=== PATIENT | female | born 1955 | race Caucasian/White ===

== ENCOUNTER 2017-07-08 15:19 | Emergency (ER) | payer BC ==
[2017-07-08 15:29] VITALS: BP 167/69; BMI 28.3
--- NOTE | 2017-07-08 15:47 | DR.GENAD ---
HPI - PCP Primary Care Physician: deepak - Complaint/Symptoms Chief Complaint:: Patient's family stated "She was started on a z-pack for a sinus infection and today she started talking out of her head and her symptoms are not any better." Patient is confused and weak in triage. Unable to remember what kind of job she does. Daughter states she has been with the [employer] system for 32 years. - Source History Provided: Patient - Mode of Arrival Mode of Arrival: Ambulatory - Timing Onset of Chief Complaint: 07/08/17 PMH - PMH Past Medical History: Yes Past Medical History: Diabetes, Hypertension Past Medical History Comment: neuropathy, breast ca Past Surgical History: Yes Surgical History: Cholecystectomy, Mastectomy Past Surgical History Comment: right cw port - Family History History of Family Medical Conditions: Yes Family Medical History: Cancer, Hypertension - Social History Does patient currently use any type of tobacco product: No Have you used tobacco products in the last 12 months: No Type of Tobacco Use: None Does any household member use tobacco: No Do you use any recreational Drugs:: Yes Lives With: Family Lives Where: Home - infectious screening In the last 2 months have you had wt loss of >10#?: NO Have you had fever, night sweats or hemotysis?: No Have you traveled outside the country in the last 6 months?: No Isolation: Standard ROS - Review of Systems Eyes: No Symptoms Reported ENTM: No Symptoms Reported Respiratoy: No Symptoms Reported Cardiovascular: No Symptoms Reported Gastrointestinal/Abdominal: No Symptoms Reported Genitourinary: No Symptoms Reported Neurological: No Symptoms Reported Musculoskeletal: No Symptoms Reported Integumentary: No Symptoms Reported Hematologic/Lymphatic: No Symptoms Reported Endocrine: No Symptoms Reported Psychiatric: No Symptoms Reported All Other Systems: Reviewed and Negative PE - Vital Signs Vitals: Temperature 99.4 F Pulse Rate 110 Respiratory Rate 24 Blood Pressure 167/69 O2 Sat by Pulse Oximetry 94 - General Limitations: No Limitations General Appearance: Alert, In No Apparent Distress - Head Head Exam: Normal Inspection, Atraumatic - Eyes Eye exam: Normal Appearance, PERRL, EOMI - ENT ENT Exam: Normal Exam External Ear Exam: Normal External Inspection TM/Canal Exam: Bilateral Normal Nose Exam: Normal Nose Exam Mouth Exam: Normal Inspection Throat Exam: Normal Inspection - Neck Neck Exam: Normal Inspection, Full ROM - Chest Chest Inspection: Normal Inspection - Respiratory Respiratory Exam: Normal Lung Sounds Bilat Respiratory Exam: Bilateral Clear to Auscultation - Cardiovascular Cardiovascular Exam: Regular Rate, Normal Rhythm - Abdominal Exam Abdominal Exam: Normal Inspection, Normal Bowel Sounds Abdominal Tenderness: negative: RUQ, RLQ, LUQ, LLQ, Epigastrium, Suprapubic, Diffuse, Mild, Moderate, Severe, Other - Extremities Extremities Exam: Normal Inspection - Back Back Exam: Normal Inspection, Full ROM - Neurologic Neurological Exam: Alert, Oriented X3, CN II-XII Intact - Psychiatric Psychiatric Exam: Normal Affect - Skin Skin Exam: Warm, Dry, Intact ROR - Labs Reviewed Laboratory Results Reviewed?: Yes (influenza B) Result Diagrams: 07/08/17 15:59 07/08/17 15:59 Laboratory: WBC 4.9 X10^3/uL (3.6-10.0) 07/08/17 15:59 RBC 3.63 X10^6/uL (3.5-5.4) 07/08/17 15:59 Hgb 11.0 g/dL (12.0-16.0) L 07/08/17 15:59 Hct 31.5 % (36.0-47.0) L 07/08/17 15:59 MCV 86.9 fL (80.0-100.0) 07/08/17 15:59 MCH 30.4 pg (27.0-34.0) 07/08/17 15:59 MCHC 35.0 g/dL (33.0-35.0) 07/08/17 15:59 RDW 13.3 % (11.6-16.5) 07/08/17 15:59 Plt Count 188 X10^3/uL (150.0-450.0) 07/08/17 15:59 MPV 8.8 fL (7.4-11.0) 07/08/17 15:59 Neut % 66.6 % (42.0-75.0) 07/08/17 15:59 Lymph % 18.2 % (21.0-51.0) L 07/08/17 15:59 Thomas % 14.4 % (0.0-13.0) H 07/08/17 15:59 Eos % 0.2 % (0.9-2.9) L 07/08/17 15:59 Baso % 0.6 % (0.2-1.0) 07/08/17 15:59 Neut # 3.3 x10^3/uL (2.2-4.8) 07/08/17 15:59 Lymph # 0.9 X10^3/uL (1.3-2.9) L 07/08/17 15:59 Thomas # 0.7 x10^3/uL (0.3-0.8) 07/08/17 15:59 Eos # 0.0 x10^3/uL (0.0-0.2) 07/08/17 15:59 Baso # 0.0 X10^3/uL (0.0-0.1) 07/08/17 15:59 Absolute Nucleated RBC 0.1 /100WBC 07/08/17 15:59 Sodium 134 mmol/L (136-145) L 07/08/17 15:59 Corrected Sodium 141 mmol/L (136-145) 07/08/17 15:59 Potassium 3.6 mmol/L (3.5-5.1) 07/08/17 15:59 Chloride 95 mmol/L (98-107) L 07/08/17 15:59 Carbon Dioxide 29.3 mmol/L (21-32) 07/08/17 15:59 BUN 22 mg/dL (7-18) H 07/08/17 15:59 Creatinine 1.14 mg/dL (0.55-1.02) H 07/08/17 15:59 Est GFR (MDRD) Af Amer > 60 (>60) 07/08/17 15:59 Est GFR (MDRD) Non-Af 51 (>60) L 07/08/17 15:59 Glucose 372 mg/dL (65-99) H 07/08/17 15:59 Calcium 8.8 mg/dL (8.5-10.1) 07/08/17 15:59 Corrected Calcium TNP 07/08/17 15:59 Total Bilirubin 0.20 mg/dL (0.2-1.0) 07/08/17 15:59 AST 23 Units/L (15-37) 07/08/17 15:59 ALT 25 Units/L (12-78) 07/08/17 15:59 Alkaline Phosphatase 151 Units/L (46-116) H 07/08/17 15:59 Total Protein 7.9 g/dL (6.4-8.2) 07/08/17 15:59 Albumin 3.7 g/dL (3.4-5.0) 07/08/17 15:59 Globulin 4.2 g/dL (2.5-4.5) 07/08/17 15:59 Albumin/Globulin Ratio 0.9 Ratio (1.1-2.1) L 07/08/17 15:59 Influenza Type A (PCR) Negative (NEGATIVE) 07/08/17 15:52 Influenza Type B (PCR) Positive (NEGATIVE) A 07/08/17 15:52 S. pyogenes (TEM-PCR) Not detected (NOT DETECT) 07/08/17 15:50 - Diagnosis Discharge Problem: Influenza B - Discharge Plan Condition: Stable - Follow ups/Referrals Follow ups/Referrals: THERESE MARCUS [Primary Care Provider] - 3 days - Instructions
[2017-07-08] MEDS ORDERED: TORADOL 30 MG VIAL IVP ONE (15:48)
[2017-07-08] MEDS ORDERED: NS 1000 ML 1,000 ML IV ONE (15:48)
[2017-07-08] MEDS ORDERED: NS 1000 ML 1,000 ML ONE (15:50)
[2017-07-08] MEDS ORDERED: TORADOL 30 MG VIAL ONE (15:51)
--- NOTE | 2017-07-08 16:05 | RAD ---
Examination: Portable AP chest History: Fever, chest pain and confusion Comparison 05/26/2016 Findings: Continued normal heart size. The lungs are essentially clear. Right breast implant partly o bscures the right lung. There is no definite pneumothorax or large pleural effusion. Impression: No acute findings. Reported By:
[2017-07-08 16:07] LABS: BASOPHILS % (AUTO) 0.6 % (0.2-1.0); EOSINOPHILS % (AUTO) 0.2 % (0.9-2.9); HEMATOCRIT 31.5 % (36.0-47.0); LYMPHOCYTES # (AUTO) 0.9 X10^3/uL (1.3-2.9); LYMPHOCYTES % (AUTO) 18.2 % (21.0-51.0); MEAN CORPUSCULAR HEMOGLOBIN 30.4 pg (27.0-34.0); MEAN CORPUSCULAR VOLUME 86.9 fL (80.0-100.0); MEAN PLATELET VOLUME 8.8 fL (7.4-11.0); MONOCYTES # (AUTO) 0.7 x10^3/uL (0.3-0.8); MONOCYTES % (AUTO) 14.4 % (0.0-13.0); NEUTROPHILS # (AUTO) 3.3 x10^3/uL (2.2-4.8); NEUTROPHILS % (AUTO) 66.6 % (42.0-75.0); PLATELET COUNT 188 X10^3/uL (150.0-450.0); RED BLOOD COUNT 3.63 X10^6/uL (3.5-5.4); RED CELL DISTRIBUTION WIDTH 13.3 % (11.6-16.5); WHITE BLOOD COUNT 4.9 X10^3/uL (3.6-10.0)
[2017-07-08 16:19] LABS: ALANINE AMINOTRANSFERASE 25 Units/L (12-78); ALBUMIN 3.7 g/dL (3.4-5.0); ALKALINE PHOSPHATASE 151 Units/L (46-116); ASPARTATE AMINO TRANSFERASE 23 Units/L (15-37); BLOOD UREA NITROGEN 22 mg/dL (7-18); CALCIUM 8.8 mg/dL (8.5-10.1); CARBON DIOXIDE 29.3 mmol/L (21-32); CHLORIDE 95 mmol/L (98-107); COR NA(FOR HYPERGLY) 141 mmol/L (136-145); CREATININE 1.14 mg/dL (0.55-1.02); SODIUM 134 mmol/L (136-145); TOTAL PROTEIN 7.9 g/dL (6.4-8.2); eGFR BLACK RACES > 60 (>60); eGFR NON BLACK RACES 51 (>60)
[2017-07-08] MEDS ORDERED: MORPHINE SULFATE INJ 4 MG IVP ONE (16:54)
[2017-07-08 17:14] LABS: BILIRUBIN,URINE NEGATIVE (NEGATIVE); BLOOD/HEMOGLOBIN,URINE 1+ (NEGATIVE); GLUCOSE, URINE 4+ (NEGATIVE); KETONES,URINE NEGATIVE (NEGATIVE); LEUKOCYTE ESTERASE ,URINE NEGATIVE (NEGATIVE); NITRITES,URINE NEGATIVE (NEGATIVE); PH,URINE 6.5 (5.0 - 8.0); PROTEIN,URINE 2+ (NEGATIVE); UROBILINOGEN,URINE NORMAL (NORMAL)
[2017-07-08 17:23] LABS: APPEARANCE,URINE CLEAR (CLEAR); BACTERIA,URINE NEGATIVE /HPF (NEGATIVE); COLOR,URINE YELLOW (YELLOW); RBC,URINE 0-3 /HPF (NONE SEEN); SQUAMOUS EPITHELIAL CELL,UR FEW /HPF (NEGATIVE)
== END 2017-07-08 17:17 | disposition home or self-care (01) ==
LOC: ER 15:32
DX: J10.1 Influenza due to other identified influenza virus with other respiratory manifestations (principal)
CPT/HCPCS: 36415; 71045; 80053; 81001; 85025; 87502; 87651; 96365; 96374; 99282; 99283; A4222; J1885

== ENCOUNTER 2017-09-02 11:56 | Inpatient (IN) | payer BC ==
--- NOTE | 2017-09-02 13:27 | DR.H&P ---
H&P - History & Physical for Day of: H&P Date: 09/02/17 - Chief Complaint Chief Complaint: WEAKNESS, FATIGUE, PEREYRA - Allergies Allergies/Adverse Reactions: Allergies Allergy/AdvReac Type Severity Reaction Status Date / Time penicillin G Allergy Verified 07/08/17 15:51 - History of Present Illness History of Present Illness: PT WAS 62 WF DIRECT ADMIT FROM DR MENDIOLA OFFICE WITH CO GENERALIZED WEAKNESS, SOB, CP ON LEFT SIDE, PT CO LOWER EXTREMITY EDEMA AND HAS BEEN ON PO LASIX. PT WAS BRADYCARDIC IN OFFICE. PT HAS PMH OF BREAST CA , HTN, DM, COPD, MDD, ALEX, OA. PT ADMITTED FOR EVALUATION OF SYMPTOMATIC BRADYCARDIA, HOLD ANY BB, CARDIAC ENZYMES AND EKGS. - Past Medical History Past Medical History: Arthritis, COPD, Diabetes, Hypertension Additional Medical History: BREAST CANCER - Past Surgical History Surgical History: Cholecystectomy, Mastectomy - Family History Family Medical History: Cancer, Hypertension - Social History Does patient currently use any type of tobacco product: No Have you used tobacco products in the last 12 months: No Type of Tobacco Use: None Does any household member use tobacco: No Alcohol Use: None Drug Use: None - Review of Systems Constitutional: Weakness, Malaise Eyes: No Symptoms Reported ENT: No Symptoms Reported Respiratory: Shortness of Breath, SOB with Excertion. denies: Wheezing Cardiovascular: Chest Pain, Edema Gastrointestinal: No Symptoms Reported Genitourinary: No Symptoms Reported Musculoskeletal: Back Pain, Leg Pain, Neck Pain Skin: No Symptoms Reported Neurological: Weakness - Physical Exam Vital Signs: Blood Pressure 167/69 Oriented: Normal Eyes: Normal Ear: Normal Nose: Normal Throat: Normal Respiratory: RLL Diminished, LLL Diminished Cardiovascular: Bradycardia, Edema : Normal Auscultation: Bowel Sounds: Normal Palpation: Normal Tenderness: Normal Skin: Decreased Turgur Musculoskeletal: Right, Left, Leg, Ankle, Back:Thoracic, Back:Lumbar, Swelling Psychiatric: Anxiety Mood Description: Depressed Affect: Depressed Speech Pattern: Clear - Assessment/Plan (1) Chest pain Status: Acute Plan: ADMIT, SERIAL CE, EKGS. HOLD BB, CXR ON ADMISSION, IV HYDRATION. ADMISSION LABS, SSI. BLOOD PRESSURE CONTROL AND BS CONTROL. RESUME HOME PAIN MEDS (2) PEREYRA (dyspnea on exertion) Status: Acute (3) Hypertension Status: Acute (4) Diabetes Status: Acute (5) Bradycardia Status: Acute
[2017-09-02] MEDS ORDERED: HumaLOG SC PRN (16:48)
[2017-09-02] MEDS ORDERED: ZOFRAN INJ 4 MG VIAL 16 MG, ATIVAN INJ 2 MG VIAL 1 MG, DECADRON INJ 10 MG in NS 50 ML I... IV PRN (16:49)
[2017-09-02] MEDS ORDERED: NS 1/2 1000 ML IV 1,000 ML IV ONE (17:10)
[2017-09-02] MEDS: ROCEPHIN 1 GM IV PREMIX 1 GM/50 ML IV.SOLN. IV SCH (17:30)
[2017-09-02] MEDS: NS 1/2 1000 ML IV 1,000 ML IV SCH (17:40)
[2017-09-02 17:52] LABS: BASOPHILS # (AUTO) 0.1 X10^3/uL (0.0-0.1); BASOPHILS % (AUTO) 0.6 % (0.2-1.0); EOSINOPHILS # (AUTO) 0.2 x10^3/uL (0.0-0.2); EOSINOPHILS % (AUTO) 1.1 % (0.9-2.9); HEMATOCRIT 25.6 % (36.0-47.0); HEMOGLOBIN 9.3 g/dL (12.0-16.0); LYMPHOCYTES % (AUTO) 20.1 % (21.0-51.0); MEAN CORPUSCULAR HEMOGLOBIN 30.1 pg (27.0-34.0); MEAN CORPUSCULAR HGB CONC 36.4 g/dL (33.0-35.0); MEAN CORPUSCULAR VOLUME 82.7 fL (80.0-100.0); MEAN PLATELET VOLUME 9.2 fL (7.4-11.0); MONOCYTES % (AUTO) 6.7 % (0.0-13.0); NEUTROPHILS # (AUTO) 10.7 x10^3/uL (2.2-4.8); NEUTROPHILS % (AUTO) 71.5 % (42.0-75.0); PLATELET COUNT 222 X10^3/uL (150.0-450.0); RED BLOOD COUNT 3.09 X10^6/uL (3.5-5.4); RED CELL DISTRIBUTION WIDTH 14.3 % (11.6-16.5)
[2017-09-02] MEDS ORDERED: PHENERGAN TAB 25 MG PO PRN (17:56)
[2017-09-02 18:15] LABS: ALANINE AMINOTRANSFERASE 26 Units/L (12-78); ALBUMIN 3.4 g/dL (3.4-5.0); ALKALINE PHOSPHATASE 149 Units/L (46-116); ASPARTATE AMINO TRANSFERASE 27 Units/L (15-37); BLOOD UREA NITROGEN 33 mg/dL (7-18); CALCIUM 8.7 mg/dL (8.5-10.1); CARBON DIOXIDE 34.2 mmol/L (21-32); CHLORIDE 95 mmol/L (98-107); CKMB % 0.8 % (<4); COR NA(FOR HYPERGLY) 143 mmol/L (136-145); CREATINE KINASE 437 Units/L (26-192); CREATINE KINASE MB 3.4 ng/mL (0-4.0); CREATININE 2.01 mg/dL (0.55-1.02); SODIUM 138 mmol/L (136-145); TOTAL PROTEIN 7.6 g/dL (6.4-8.2); TROPONIN I 0.03 ng/mL (0-1.5); eGFR BLACK RACES 32 (>60); eGFR NON BLACK RACES 27 (>60)
[2017-09-02] MEDS ORDERED: K-RIDER 10 MEQ/NS 100 ML 10 MEQ/100 ML BAG IV PRN (18:18)
[2017-09-02] MEDS ORDERED: MAGNESIUM SULFATE 1 GM/100 mL PREMIX 1 GM/100 ML BAG IV PRN (18:18)
[2017-09-02] MEDS ORDERED: POTASSIUM CHLORIDE LIQ 20 MEQ UDC PO PRN (18:18)
[2017-09-02] MEDS ORDERED: K-LYTE EFFERVESCENT PO PRN (18:18)
[2017-09-02] MEDS ORDERED: POTASSIUM CHL 40 MEQ/NS 0.45% 500 ML IV PRN (18:18)
[2017-09-02] MEDS: POTASSIUM CHL 60 MEQ/NS 0.45% 500 ML IV PRN (18:36)
[2017-09-02] MEDS: MORPHINE SULFATE INJ 2 MG INJ IVP PRN (18:36)
[2017-09-02] MEDS: HumuLIN R SUBCUT PRN ×2 (18:40→22:14)
[2017-09-02] MEDS: SNACK - Diabetic Appropriate PO SCH (20:00)
[2017-09-02] MEDS: CRESTOR TAB 10 MG PO SCH (21:22)
[2017-09-02] MEDS: NEURONTIN CAP 100 MG PO SCH (21:23)
[2017-09-02] MEDS: NEURONTIN CAP 400 MG PO SCH (21:23)
[2017-09-02] MEDS: CEVIMELINE HCL PO SCH (21:30)
--- NOTE | 2017-09-02 22:18 | RAD ---
Chest, two views Indication: Dizzy, weak Comparison: 07/08/2017 Findings: Heart size is normal. Right breast implant slightly limits evaluation of the right lung. Gi bia these limitations, the lungs are grossly clear without focal consolidation. No significant pleura l effusion or pneumothorax identified. There is no acute osseous abnormality. Impression: No acute cardiopulmonary abnormality or significant change since prior. Reported By:
[2017-09-03 00:30] LABS: CKMB % 0.7 % (<4); CREATINE KINASE MB 2.8 ng/mL (0-4.0); TROPONIN I 0.03 ng/mL (0-1.5)
[2017-09-03 00:36] VITALS: BMI 26.9
[2017-09-03] MEDS: POTASSIUM CHL 60 MEQ/NS 0.45% 500 ML IV PRN ×2 (00:46→10:58)
[2017-09-03] MEDS: AMBIEN PO PRN ×2 (01:40→21:24)
[2017-09-03 02:19] LABS: BILIRUBIN,URINE NEGATIVE (NEGATIVE); BLOOD/HEMOGLOBIN,URINE 4+ (NEGATIVE); GLUCOSE, URINE 4+ (NEGATIVE); KETONES,URINE NEGATIVE (NEGATIVE); LEUKOCYTE ESTERASE ,URINE NEGATIVE (NEGATIVE); NITRITES,URINE NEGATIVE (NEGATIVE); PROTEIN,URINE 3+ (NEGATIVE); UROBILINOGEN,URINE NORMAL (NORMAL)
[2017-09-03 02:40] LABS: APPEARANCE,URINE CLEAR (CLEAR); BACTERIA,URINE NEGATIVE /HPF (NEGATIVE); COLOR,URINE YELLOW (YELLOW); RBC,URINE 0-2 /HPF (NONE SEEN); SQUAMOUS EPITHELIAL CELL,UR FEW /HPF (NEGATIVE)
[2017-09-03] MEDS ORDERED: TYLENOL 325 MG TAB PO PRN (04:43)
[2017-09-03] MEDS: CEVIMELINE HCL PO SCH ×3 (06:10→21:25)
[2017-09-03] MEDS: NS 1/2 1000 ML IV 1,000 ML IV SCH ×2 (06:10→19:00)
[2017-09-03] MEDS: HumuLIN R SUBCUT PRN ×4 (06:20→21:28)
[2017-09-03] MEDS: NEURONTIN CAP 100 MG PO SCH ×3 (06:22→21:24)
[2017-09-03] MEDS: NEURONTIN CAP 400 MG PO SCH ×3 (06:22→21:24)
[2017-09-03] MEDS: LASIX PO SCH ×2 (06:23→16:01)
[2017-09-03 06:54] LABS: BASOPHILS # (AUTO) 0.1 X10^3/uL (0.0-0.1); BASOPHILS % (AUTO) 0.6 % (0.2-1.0); EOSINOPHILS # (AUTO) 0.3 x10^3/uL (0.0-0.2); EOSINOPHILS % (AUTO) 2.2 % (0.9-2.9); HEMATOCRIT 23.5 % (36.0-47.0); HEMOGLOBIN 8.5 g/dL (12.0-16.0); LYMPHOCYTES # (AUTO) 2.6 X10^3/uL (1.3-2.9); LYMPHOCYTES % (AUTO) 22.8 % (21.0-51.0); MEAN CORPUSCULAR HEMOGLOBIN 30.2 pg (27.0-34.0); MEAN CORPUSCULAR HGB CONC 36.3 g/dL (33.0-35.0); MEAN CORPUSCULAR VOLUME 83.2 fL (80.0-100.0); MEAN PLATELET VOLUME 9.1 fL (7.4-11.0); MONOCYTES # (AUTO) 0.8 x10^3/uL (0.3-0.8); MONOCYTES % (AUTO) 6.8 % (0.0-13.0); NEUTROPHILS # (AUTO) 7.7 x10^3/uL (2.2-4.8); NEUTROPHILS % (AUTO) 67.6 % (42.0-75.0); PLATELET COUNT 187 X10^3/uL (150.0-450.0); RED BLOOD COUNT 2.82 X10^6/uL (3.5-5.4); RED CELL DISTRIBUTION WIDTH 13.9 % (11.6-16.5); WHITE BLOOD COUNT 11.5 X10^3/uL (3.6-10.0)
[2017-09-03 07:35] LABS: ALBUMIN 2.9 g/dL (3.4-5.0); CALCIUM 8.1 mg/dL (8.5-10.1); CARBON DIOXIDE 30.3 mmol/L (21-32); CKMB % 0.6 % (<4); CREATINE KINASE MB 2.1 ng/mL (0-4.0); CREATININE 1.62 mg/dL (0.55-1.02); TOTAL PROTEIN 6.8 g/dL (6.4-8.2); TROPONIN I 0.02 ng/mL (0-1.5)
[2017-09-03] MEDS: ROCEPHIN 1 GM IV PREMIX 1 GM/50 ML IV.SOLN. IV SCH (09:28)
[2017-09-03] MEDS: EXEMESTANE PO SCH (11:56)
[2017-09-03] MEDS: MORPHINE SULFATE INJ 2 MG INJ IVP PRN (17:27)
[2017-09-03] MEDS: SNACK - Diabetic Appropriate PO SCH (20:00)
[2017-09-03] MEDS: CRESTOR TAB 10 MG PO SCH (21:24)
[2017-09-04] MEDS: NEURONTIN CAP 400 MG PO SCH ×2 (05:09→14:00)
[2017-09-04] MEDS: MORPHINE SULFATE INJ 2 MG INJ IVP PRN ×2 (05:09→14:00)
[2017-09-04] MEDS: CEVIMELINE HCL PO SCH ×2 (05:09→14:00)
[2017-09-04] MEDS: NEURONTIN CAP 100 MG PO SCH ×2 (05:09→14:00)
[2017-09-04] MEDS ORDERED: NS 1/2 1000 ML IV 1,000 ML IV ONE (05:21)
[2017-09-04] MEDS: NS 1/2 1000 ML IV 1,000 ML IV SCH ×2 (06:01→09:10)
[2017-09-04] MEDS: HumuLIN R SUBCUT PRN ×2 (06:02→11:30)
[2017-09-04] MEDS: LASIX PO SCH (06:28)
[2017-09-04 06:29] LABS: BASOPHILS # (AUTO) 0.1 X10^3/uL (0.0-0.1); BASOPHILS % (AUTO) 0.6 % (0.2-1.0); EOSINOPHILS # (AUTO) 0.3 x10^3/uL (0.0-0.2); EOSINOPHILS % (AUTO) 2.6 % (0.9-2.9); HEMATOCRIT 26.3 % (36.0-47.0); HEMOGLOBIN 9.5 g/dL (12.0-16.0); LYMPHOCYTES # (AUTO) 2.4 X10^3/uL (1.3-2.9); LYMPHOCYTES % (AUTO) 21.2 % (21.0-51.0); MEAN CORPUSCULAR HEMOGLOBIN 30.2 pg (27.0-34.0); MEAN CORPUSCULAR HGB CONC 36.1 g/dL (33.0-35.0); MEAN CORPUSCULAR VOLUME 83.7 fL (80.0-100.0); MEAN PLATELET VOLUME 8.9 fL (7.4-11.0); MONOCYTES # (AUTO) 0.7 x10^3/uL (0.3-0.8); MONOCYTES % (AUTO) 6.5 % (0.0-13.0); NEUTROPHILS # (AUTO) 7.8 x10^3/uL (2.2-4.8); NEUTROPHILS % (AUTO) 69.1 % (42.0-75.0); PLATELET COUNT 201 X10^3/uL (150.0-450.0); RED BLOOD COUNT 3.15 X10^6/uL (3.5-5.4); RED CELL DISTRIBUTION WIDTH 14.1 % (11.6-16.5); WHITE BLOOD COUNT 11.4 X10^3/uL (3.6-10.0)
[2017-09-04 06:37] LABS: ALBUMIN 3.2 g/dL (3.4-5.0); CALCIUM 8.2 mg/dL (8.5-10.1); COR CA(FOR HYPOALB) 8.8 mg/dL (8.5-10.1); CREATININE 1.39 mg/dL (0.55-1.02); TOTAL PROTEIN 7.4 g/dL (6.4-8.2)
--- NOTE | 2017-09-04 07:56 | RAD ---
Examination: Portable AP chest History: Dizziness and weakness Comparison 09/02/2017 Findings: Normal heart size, grossly clear lungs. The right lung is partly obscured by breast implant . No obvious pneumothorax or large pleural effusion. Impression: No localized/acute chest abnormality. Reported By:
[2017-09-04] MEDS: EXEMESTANE PO SCH ×2 (09:10→09:11)
[2017-09-04] MEDS ORDERED: K-DUR TAB 20 MEQ PO ONE ×3 (09:24→14:47)
[2017-09-04] MEDS: ROCEPHIN 1 GM IV PREMIX 1 GM/50 ML IV.SOLN. IV SCH (09:31)
[2017-09-04] MEDS ORDERED: K-LYTE EFFERVESCENT PO SCH (10:00)
[2017-09-04 12:51] VITALS: BP 128/59
[2017-09-04] MEDS ORDERED: K-DUR TAB 20 MEQ PO SCH (14:47)
[2017-09-05] MEDS ORDERED: LASIX PO SCH (09:00)
== END 2017-09-04 15:40 | disposition home or self-care (01) | DRG 310 ==
LOC: ICU 11:56
PROVIDERS: ADMIT Internal Medicine; ATTEND Internal Medicine
DX: R00.1 Bradycardia, unspecified (principal); E87.6 Hypokalemia; E11.65 Type 2 diabetes mellitus with hyperglycemia; I10 Essential (primary) hypertension; M19.90 Unspecified osteoarthritis, unspecified site; J44.9 Chronic obstructive pulmonary disease, unspecified; F41.8 Other specified anxiety disorders; F32.89 Other specified depressive episodes; R53.1 Weakness; R53.83 Other fatigue; R07.89 Other chest pain; R60.0 Localized edema; I25.10 Atherosclerotic heart disease of native coronary artery without angina pectoris
CPT/HCPCS: 36415; 71045; 71046; 80053; 81001; 82550; 82553; 83735; 84132; 84484; 85025; 93005; 93010; A4222; Q0169; J0696; J1100; J1815; J2060; J2270; J2405

== ENCOUNTER 2018-02-09 10:53 | Inpatient (IN) ==
[2018-02-09 11:51] VITALS: BMI 28.2
[2018-02-09 11:53] LABS: BASOPHILS # (AUTO) 0.1 X10^3/uL (0.0-0.1); BASOPHILS % (AUTO) 0.6 % (0.2-1.0); EOSINOPHILS # (AUTO) 0.2 x10^3/uL (0.0-0.2); HEMATOCRIT 28.9 % (36.0-47.0); HEMOGLOBIN 9.8 g/dL (12.0-16.0); LYMPHOCYTES # (AUTO) 1.2 X10^3/uL (1.3-2.9); MEAN CORPUSCULAR HEMOGLOBIN 31.3 pg (27.0-34.0); MEAN CORPUSCULAR HGB CONC 33.9 g/dL (33.0-35.0); MEAN CORPUSCULAR VOLUME 92.4 fL (80.0-100.0); MEAN PLATELET VOLUME 9.1 fL (7.4-11.0); MONOCYTES # (AUTO) 0.7 x10^3/uL (0.3-0.8); MONOCYTES % (AUTO) 6.5 % (0.0-13.0); NEUTROPHILS # (AUTO) 8.7 x10^3/uL (2.2-4.8); NEUTROPHILS % (AUTO) 79.9 % (42.0-75.0); PLATELET COUNT 187 X10^3/uL (150.0-450.0); RED BLOOD COUNT 3.13 X10^6/uL (3.5-5.4); WHITE BLOOD COUNT 10.8 X10^3/uL (3.6-10.0)
[2018-02-09 12:07] LABS: ALBUMIN 3.2 g/dL (3.4-5.0); CALCIUM 8.5 mg/dL (8.5-10.1); CARBON DIOXIDE 32.2 mmol/L (21-32); COR CA(FOR HYPOALB) 9.1 mg/dL (8.5-10.1); CREATININE 2.16 mg/dL (0.55-1.02); TOTAL PROTEIN 7.3 g/dL (6.4-8.2)
[2018-02-09] MEDS ORDERED: HumuLIN R SUBCUT PRN (12:21)
[2018-02-09] MEDS: NS 1000 ML 1,000 ML IV SCH (12:42)
[2018-02-09 12:55] LABS: ABG BASE EXCESS 5.5 mmol/L (-2.0-2.0); ABG HCO3 29.9 mmol/L (22-26)
[2018-02-09 12:56] LABS: ABG ALLEN TEST POS; FRACTIONATED INSPIRED OXYGEN 21
[2018-02-09] MEDS: HumuLIN R SUBCUT PRN ×3 (14:48→23:18)
--- NOTE | 2018-02-09 15:30 | RAD ---
STUDY: CHEST, ONE VIEW History: Low oxygen levels. History breast cancer. Comparison: September 04, 2017. Findings: The trachea is midline. There is prominence of the cardiac silhouette. There is mild prominence of th e central pulmonary vasculature and interstitial markings. A right breast implant is again noted. The re is no evidence of consolidation, significant effusion or pneumothorax. IMPRESSION: 1. Cardiomegaly with central pulmonary vascular congestion mild central interstitial edema. Reported By:
[2018-02-09] MEDS ORDERED: LASIX IVP ONE (15:35)
[2018-02-09 16:04] LABS: TROPONIN I 0.02 ng/mL (0-1.5)
[2018-02-09 17:29] LABS: BILIRUBIN,URINE NEGATIVE (NEGATIVE); BLOOD/HEMOGLOBIN,URINE 1+ (NEGATIVE); GLUCOSE, URINE 4+ (NEGATIVE); KETONES,URINE NEGATIVE (NEGATIVE); LEUKOCYTE ESTERASE ,URINE 3+ (NEGATIVE); NITRITES,URINE NEGATIVE (NEGATIVE); PROTEIN,URINE 1+ (NEGATIVE); UROBILINOGEN,URINE NORMAL (NORMAL)
[2018-02-09 17:36] LABS: APPEARANCE,URINE HAZY (CLEAR); BACTERIA,URINE 2+ /HPF (NEGATIVE); COLOR,URINE YELLOW (YELLOW); RBC,URINE 0-2 /HPF (NONE SEEN); SQUAMOUS EPITHELIAL CELL,UR MODERATE /HPF (NEGATIVE)
--- NOTE | 2018-02-09 18:06 | DR.H&P ---
H&P - History & Physical for Day of: H&P Date: 02/09/18 - Chief Complaint Chief Complaint: SOB, ABDOMINAL DISTENTION - History of Present Illness History of Present Illness: 62 WF DIRECT ADMIT FROM DR ORONA OFFICE WITH CO SOB, LOWER EXTREMITY EDEMA AND ABDOMINAL DISTENTION. PT CO FEELING WEAK AND SOB, TAKING BP MEDICATION AND PO LASIX AT HOME. PT DENIES CHEST PAIN, STATES ABD IS SWELLING "LIKE IM " PT DENIES N/V/D OR FEVER. PT HAS PMH OF DM, HTN, OA, BREAST CANCER, ALEX. PT ADMITTED FOR EVALUATION OF ACUTE SOB, EDEMA. - Past Medical History Past Medical History: Arthritis, COPD, Diabetes, Hypertension Additional Medical History: BREAST CANCER - Past Surgical History Surgical History: Cholecystectomy, Mastectomy - Family History Family Medical History: Cancer, Hypertension - Social History Does patient currently use any type of tobacco product: No Have you used tobacco products in the last 12 months: No Type of Tobacco Use: None Alcohol Use: None Drug Use: None - Medications Home Medications: penicillin G Allergy (Verified 09/02/17 17:26) sulfamethoxazole [From Bactrim] Allergy (Verified 09/02/17 17:26) trimethoprim [From Bactrim] Allergy (Verified 09/02/17 17:26) CONTINUE taking the following medications atenolol 1 tab PO DAILY 02/09/18 [History] diclofenac sodium 1 applic TOPICAL QID 02/09/18 [History] escitalopram oxalate 1 tab PO HS 02/09/18 [History] exemestane 1 tab PO DAILY 02/09/18 [History] furosemide 1 tab PO DAILY PRN 02/09/18 [History] insulin glargine U-300 conc [Toujeo SoloStar U-300 Insulin] 50 units SUBCUT HS 02/09/18 [History] lisinopril 1 tab PO DAILY 02/09/18 [History] lorazepam 1 - 1.5 tab PO DAILY PRN 02/09/18 [History] meloxicam 1 tab PO DAILY 02/09/18 [History] potassium chloride 20 meq PO DAILY 02/09/18 [History] - Review of Systems Constitutional: Weakness Eyes: No Symptoms Reported ENT: No Symptoms Reported Respiratory: Shortness of Breath, SOB with Excertion Cardiovascular: Palpitations, Edema Gastrointestinal: No Symptoms Reported Genitourinary: No Symptoms Reported Musculoskeletal: Back Pain, Leg Pain, Foot Pain Skin: No Symptoms Reported Neurological: Weakness - Physical Exam Vital Signs: Temperature 99.7 F Pulse Rate [Right Brachial] 79 Respiratory Rate 20 Blood Pressure [Right Arm] 192/77 Blood Pressure 128/59 O2 Sat by Pulse Oximetry 96 Oriented: Normal Eyes: Normal Ear: Normal Nose: Normal Throat: Normal Respiratory: RML Diminished, RLL Diminished, LML Diminished, LLL Diminished Cardiovascular: Tachycardia, Edema : Normal Auscultation: Bowel Sounds: Normal Palpation: Normal Tenderness: Diffuse (MODERATE DISTENTION). negative: Rebound, Guarding Skin: Normal Musculoskeletal: Back:Lumbar, Sensory Deficit Psychiatric: Depression Affect: Anxious Speech Pattern: Clear - Assessment/Plan (1) PEREYRA (dyspnea on exertion) Status: Acute Plan: ADMIT, ABG AND EKG ON ADMISSION. CXR, SERIAL CE. CT ABD PELVIS, CBC CMP UA. BP AND BLOOD PRESSURE CONTROL. SUPPLEMENTAL O2 RESP CONSULT. VERIFY HOME MEDS, STRICT I& OS, SSI COVERAGE (2) Hypertension Status: Acute (3) Diabetes Status: Acute (4) Abdominal distension Status: Acute - Allergies Allergies/Adverse Reactions: Allergies Allergy/AdvReac Type Severity Reaction Status Date / Time penicillin G Allergy Verified 09/02/17 17:26 sulfamethoxazole Allergy Verified 09/02/17 17:26 [From Bactrim] trimethoprim [From Bactrim] Allergy Verified 09/02/17 17:26
[2018-02-09] MEDS: NORCO 10/325 TAB PO PRN (18:24)
[2018-02-09] MEDS: EXEMESTANE PO SCH (18:30)
[2018-02-09] MEDS: CEVIMELINE PO SCH ×2 (18:30→22:45)
[2018-02-09] MEDS ORDERED: K-DUR TAB 20 MEQ PO SCH (19:00)
[2018-02-09] MEDS ORDERED: LEXAPRO ONE (20:07)
[2018-02-09] MEDS: LEXAPRO PO SCH (20:39)
[2018-02-09] MEDS: NEURONTIN CAP 400 MG PO SCH ×2 (20:39→22:45)
[2018-02-09] MEDS ORDERED: TOUJEO SOLOSTAR PEN SC SCH (21:00)
[2018-02-09 22:42] LABS: CKMB % 0.7 % (<4); CREATINE KINASE 142 Units/L (26-192); TROPONIN I < 0.02 ng/mL (0-1.5)
[2018-02-10] MEDS: NORCO 10/325 TAB PO PRN ×3 (00:15→14:50)
[2018-02-10] MEDS: SNACK - Diabetic Appropriate PO SCH ×2 (00:21→20:43)
[2018-02-10] MEDS: TENORMIN PO SCH ×2 (01:55→09:50)
[2018-02-10] MEDS: NS 1000 ML 1,000 ML IV SCH ×2 (03:25→17:09)
[2018-02-10 05:18] LABS: BASOPHILS % (AUTO) 0.4 % (0.2-1.0); EOSINOPHILS # (AUTO) 0.2 x10^3/uL (0.0-0.2); EOSINOPHILS % (AUTO) 1.8 % (0.9-2.9); HEMATOCRIT 25.5 % (36.0-47.0); HEMOGLOBIN 8.8 g/dL (12.0-16.0); LYMPHOCYTES # (AUTO) 2.2 X10^3/uL (1.3-2.9); LYMPHOCYTES % (AUTO) 18.6 % (21.0-51.0); MEAN CORPUSCULAR HEMOGLOBIN 31.5 pg (27.0-34.0); MEAN CORPUSCULAR HGB CONC 34.3 g/dL (33.0-35.0); MEAN CORPUSCULAR VOLUME 91.8 fL (80.0-100.0); MEAN PLATELET VOLUME 9.6 fL (7.4-11.0); MONOCYTES # (AUTO) 0.9 x10^3/uL (0.3-0.8); MONOCYTES % (AUTO) 7.3 % (0.0-13.0); NEUTROPHILS # (AUTO) 8.5 x10^3/uL (2.2-4.8); NEUTROPHILS % (AUTO) 71.9 % (42.0-75.0); PLATELET COUNT 172 X10^3/uL (150.0-450.0); RED BLOOD COUNT 2.78 X10^6/uL (3.5-5.4); WHITE BLOOD COUNT 11.8 X10^3/uL (3.6-10.0)
[2018-02-10] MEDS: CEVIMELINE PO SCH ×3 (05:42→22:07)
[2018-02-10] MEDS: NEURONTIN CAP 400 MG PO SCH ×3 (05:42→22:06)
[2018-02-10] MEDS: HumuLIN R SUBCUT PRN ×4 (05:43→22:09)
[2018-02-10 05:47] LABS: ALANINE AMINOTRANSFERASE 51 Units/L (12-78); ALBUMIN 2.7 g/dL (3.4-5.0); ALKALINE PHOSPHATASE 120 Units/L (46-116); ASPARTATE AMINO TRANSFERASE 33 Units/L (15-37); BLOOD UREA NITROGEN 44 mg/dL (7-18); CALCIUM 8.6 mg/dL (8.5-10.1); CARBON DIOXIDE 29.5 mmol/L (21-32); CHLORIDE 103 mmol/L (98-107); CKMB % 0.8 % (<4); COR CA(FOR HYPOALB) 9.6 mg/dL (8.5-10.1); COR NA(FOR HYPERGLY) 141 mmol/L (136-145); CREATINE KINASE 129 Units/L (26-192); CREATINE KINASE MB < 1.0 ng/mL (0-4.0); CREATININE 1.73 mg/dL (0.55-1.02); SODIUM 139 mmol/L (136-145); TOTAL PROTEIN 6.5 g/dL (6.4-8.2); TROPONIN I < 0.02 ng/mL (0-1.5); eGFR NON BLACK RACES 32 (>60)
[2018-02-10] MEDS ORDERED: ZESTRIL TAB 20 MG ONE (09:49)
[2018-02-10] MEDS: EXEMESTANE PO SCH (09:50)
[2018-02-10] MEDS: ZESTRIL TAB 20 MG PO SCH (09:51)
[2018-02-10] MEDS ORDERED: TORADOL 15 MG VIAL IVP ONE (11:04)
[2018-02-10] MEDS ORDERED: TUSSIONEX PENNKINETIC SUSP PO PRN (11:12)
[2018-02-10] MEDS ORDERED: PHARMACY CONSULT - DOSE _____ XX SCH (12:00)
[2018-02-10] MEDS ORDERED: SALINE 3% 15 ML NEB TX ONE (12:14)
[2018-02-10] MEDS: PROVENTIL NEB TX 0.083% 2.5MG/ 3ML NEB PRN (12:20)
[2018-02-10 12:25] LABS: AMYLASE 19 Units/L (25-115); LIPASE 77 Units/L (73-393)
--- NOTE | 2018-02-10 12:32 | CT ---
HISTORY: Generalized abdominal pain Study: CT abdomen pelvis without contrast Comparison: None Technique: Axial noncontrast images with coronal and sagittal reformats. Dose reduction procedures we re used with mA/kv adjusted for body size. THIS EXAMINATION IS LIMITED DUE TO THE LACK OF INTRAVENOUS AND ORAL CONTRAST. The examination was performed in this manner at the sole discretion of the orderi ng caregiver and without input requested from or given by Radiology. Findings: The lung bases are clear. Bilateral small pleural effusions are present. The liver is mildly enlarged and without periumbilical ventral hernia containing mesenteric fat and unobstructed small bowel loop s. There is no definite evidence for strangulation. Incarceration should be clinically excluded. Torey cific atherosclerotic changes present in a nondilated abdominal aorta. No intraperitoneal or retroper itoneal lymphadenopathy of significance is identified. There are no findings suggestive of diverticul itis or colitis. There is a large amount of stool within the colon suggestive of constipation. Examin ation of the pelvis demonstrated no evidence for pelvic masses, pelvic fluid, or pelvic lymphadenopat hy. No bladder abnormality is identified. No significant lytic or blastic osseous lesions are identif ied. focal space-occupying disease to the limitations of an unenhanced examination. The spleen, adren al glands, and pancreas are within normal limits to the limitations of an unenhanced examination. The patient is status post cholecystectomy. The kidneys are unobstructed and without stones . No uretera l calculi are identified. There is a midline IMPRESSION: Nonspecific hepatomegaly Midline periumbilical ventral hernia containing mesenteric fat and small bowel loops which are unobst ructed. No evidence for strangulation at this time. Incarceration would need to be clinically exclude d. Bilateral small pleural effusions are identified. Reported By:
[2018-02-10 12:40] LABS: AMMONIA < 10 umol/L (11-32)
[2018-02-10] MEDS ORDERED: SALINE 3% 15 ML NEB TX NEB ONE (12:41)
[2018-02-10] MEDS: ZITHROMAX INJ 500 MG VIAL 500 MG in NS 250 ML IV 250 ML IV SCH (13:26)
[2018-02-10] MEDS: ROBITUSSIN DM PO SCH ×3 (13:27→22:06)
[2018-02-10] MEDS ORDERED: TORADOL 15 MG VIAL IVP NR (13:30)
--- NOTE | 2018-02-10 14:02 | PCM.PROG ---
Progress Note - Progress Note for Day of Date of Exam: 02/10/18 - Subjective Subjective: 62 WF ADMISSION ON 02/09 WITH SOB, ABDOMINAL DISTENTION. PT IS NPO THIS AM FOR CT ABD/PELVIS. PT HAD 1 DOSE LASIX 40MGIV, WITH IMPROVED SOB THIS. PNEUMONIA PROTCOL THIS AM. - Past Medical Family Social History Past Med/Fam/Surg Hx: No changes since H&P Allergies: Allergies penicillin G Allergy (Verified 09/02/17 17:26) sulfamethoxazole [From Bactrim] Allergy (Verified 09/02/17 17:26) trimethoprim [From Bactrim] Allergy (Verified 09/02/17 17:26) - Review of Systems ROS: No change since H&P - Vital Signs and I&O's Vital Signs: Temperature 97.7 F Pulse Rate [Right Brachial] 76 Pulse Rate 71 Respiratory Rate 20 Blood Pressure [Right Arm] 158/76 Blood Pressure 128/59 O2 Sat by Pulse Oximetry 100 Intake and Output: Intake & Output 02/08/18 02/09/18 02/10/18 02/11/18 11:59 11:59 11:59 11:59 Intake Total 400 / 400 Output Total 300 / 300 Balance 100 / 100 - Physical Exam Oriented: Normal Eyes: Normal Ear: Normal Nose: Normal Throat: Normal Respiratory: Diminished Cardiovascular: Tachycardia, Edema : Normal Auscultation: Bowel Sounds: Normal Tenderness: Diffuse (MODERATE DISTENTION). negative: Rebound, Guarding Skin: Normal Musculoskeletal: Back:Lumbar, Sensory Deficit Psychiatric: Depression Affect: Anxious Speech Pattern: Clear, Appropriate - Laboratory and Diagnostics Result Diagrams: 02/10/18 03:45 02/10/18 03:45 Labs: 02/09/18 16:59 Urine,Clean Catch Urine Culture - Preliminary Laboratory WBC 11.8 X10^3/uL (3.6-10.0) H 02/10/18 03:45 RBC 2.78 X10^6/uL (3.5-5.4) L 02/10/18 03:45 Hgb 8.8 g/dL (12.0-16.0) L 02/10/18 03:45 Hct 25.5 % (36.0-47.0) L 02/10/18 03:45 MCV 91.8 fL (80.0-100.0) 02/10/18 03:45 MCH 31.5 pg (27.0-34.0) 02/10/18 03:45 MCHC 34.3 g/dL (33.0-35.0) 02/10/18 03:45 RDW 14.0 % (11.6-16.5) 02/10/18 03:45 Plt Count 172 X10^3/uL (150.0-450.0) 02/10/18 03:45 MPV 9.6 fL (7.4-11.0) 02/10/18 03:45 Neut % (Auto) 71.9 % (42.0-75.0) 02/10/18 03:45 Lymph % (Auto) 18.6 % (21.0-51.0) L 02/10/18 03:45 [place] % (Auto) 7.3 % (0.0-13.0) 02/10/18 03:45 Eos % (Auto) 1.8 % (0.9-2.9) 02/10/18 03:45 Baso % (Auto) 0.4 % (0.2-1.0) 02/10/18 03:45 Neut # (Auto) 8.5 x10^3/uL (2.2-4.8) H 02/10/18 03:45 Lymph # (Auto) 2.2 X10^3/uL (1.3-2.9) 02/10/18 03:45 [place] # (Auto) 0.9 x10^3/uL (0.3-0.8) H 02/10/18 03:45 Eos # (Auto) 0.2 x10^3/uL (0.0-0.2) 02/10/18 03:45 Baso # (Auto) 0.0 X10^3/uL (0.0-0.1) 02/10/18 03:45 Absolute Nucleated RBC 0.0 /100WBC 02/10/18 03:45 Sample Site Lrad 02/09/18 12:35 ABG pH 7.460 (7.35-7.45) H 02/09/18 12:35 ABG pCO2 42.0 mmHg (35.0-45.0) 02/09/18 12:35 ABG pO2 56.0 mmHg (80.0-100.0) L 02/09/18 12:35 ABG HCO3 29.9 mmol/L (22-26) H 02/09/18 12:35 ABG O2 Saturation 90.0 % (90-100) 02/09/18 12:35 ABG Base Excess 5.5 mmol/L (-2.0-2.0) H 02/09/18 12:35 Yoshi Test Pos 02/09/18 12:35 A-a Gradient 41.0 mmHg 02/09/18 12:35 FiO2 21 02/09/18 12:35 Blood Gas Comments Son well ah 02/09/18 12:35 Sodium 139 mmol/L (136-145) 02/10/18 03:45 Corrected Sodium 141 mmol/L (136-145) 02/10/18 03:45 Potassium 5.1 mmol/L (3.5-5.1) 02/10/18 03:45 Chloride 103 mmol/L (98-107) 02/10/18 03:45 Carbon Dioxide 29.5 mmol/L (21-32) 02/10/18 03:45 BUN 44 mg/dL (7-18) H 02/10/18 03:45 Creatinine 1.73 mg/dL (0.55-1.02) H 02/10/18 03:45 Est GFR (MDRD) Af Amer 38 (>60) L 02/10/18 03:45 Est GFR (MDRD) Non-Af 32 (>60) L 02/10/18 03:45 Glucose 172 mg/dL (65-99) H 02/10/18 03:45 POC Glucose (mg/dL) 184 mg/dL (65-99) H 02/10/18 10:49 Calcium 8.6 mg/dL (8.5-10.1) 02/10/18 03:45 Corrected Calcium 9.6 mg/dL (8.5-10.1) 02/10/18 03:45 Iron 26 ug/dL (50-175) L 02/09/18 11:48 Transferrin 204 mg/dL (202-364) 02/09/18 11:48 Ferritin 217 ng/mL (8-252) 02/09/18 11:48 Total Bilirubin 0.50 mg/dL (0.2-1.0) 02/10/18 03:45 AST 33 Units/L (15-37) 02/10/18 03:45 ALT 51 Units/L (12-78) 02/10/18 03:45 Alkaline Phosphatase 120 Units/L (46-116) H 02/10/18 03:45 Ammonia < 10 umol/L (11-32) L 02/10/18 11:35 Creatine Kinase 129 Units/L (26-192) 02/10/18 03:45 CK-MB (CK-2) < 1.0 ng/mL (0-4.0) 02/10/18 03:45 CK/CKMB % Calc 0.8 % (<4) 02/10/18 03:45 Troponin I < 0.02 ng/mL (0-1.5) 02/10/18 03:45 Total Protein 6.5 g/dL (6.4-8.2) 02/10/18 03:45 Albumin 2.7 g/dL (3.4-5.0) L 02/10/18 03:45 Globulin 3.8 g/dL (2.5-4.5) 02/10/18 03:45 Albumin/Globulin Ratio 0.7 Ratio (1.1-2.1) L 02/10/18 03:45 Amylase 19 Units/L (25-115) L 02/10/18 11:35 Lipase 77 Units/L (73-393) 02/10/18 11:35 Vitamin B12 348 pg/mL (193-986) 02/09/18 11:48 Folate 16.4 ng/mL (>8.6) 02/09/18 11:48 Specimen Type Clean catch urine 02/09/18 16:59 Urine Color Yellow (YELLOW) 02/09/18 16:59 Urine Appearance Hazy (CLEAR) 02/09/18 16:59 Urine pH 6.0 (5.0 - 8.0) 02/09/18 16:59 Ur Specific [place] 1.015 (1.000-1.030) 02/09/18 16:59 Urine Protein 1+ (NEGATIVE) 02/09/18 16:59 Urine Glucose (UA) 4+ (NEGATIVE) 02/09/18 16:59 Urine Ketones Negative (NEGATIVE) 02/09/18 16:59 Urine Occult Blood 1+ (NEGATIVE) 02/09/18 16:59 Urine Nitrite Negative (NEGATIVE) 02/09/18 16:59 Urine Bilirubin Negative (NEGATIVE) 02/09/18 16:59 Urine Urobilinogen Normal (NORMAL) 02/09/18 16:59 Ur Leukocyte Esterase 3+ (NEGATIVE) 02/09/18 16:59 Urine RBC 0-2 /HPF (NONE SEEN) 02/09/18 16:59 Urine WBC 20-30 /HPF (NONE SEEN) 02/09/18 16:59 Ur Squamous Epith Cells Moderate /HPF (NEGATIVE) 02/09/18 16:59 Urine Bacteria 2+ /HPF (NEGATIVE) 02/09/18 16:59 Ur Culture Indicated? Yes/culture set up 02/09/18 16:59 - Plan (1) PEREYRA (dyspnea on exertion) Status: Acute Plan: ABG AND EKG ON ADMISSION. CXR, SERIAL CE ON ADMISSION. CT ABD PELVIS, CBC CMP UA. BP AND BLOOD PRESSURE CONTROL. SUPPLEMENTAL O2 RESP CONSULT. VERIFY HOME MEDS, STRICT I& OS, SSI COVERAGE (2) Hypertension Status: Acute (3) Diabetes Status: Acute (4) Abdominal distension Status: Acute (5) COPD (chronic obstructive pulmonary disease) with acute bronchitis Status: Acute Plan: BC AND SPUTUM CULTURES. IV ATBX, RESP THERAPY
[2018-02-10] MEDS: PHENERGAN INJ 25 MG IV PRN ×2 (14:30→20:25)
[2018-02-10] MEDS: DEMEROL INJ IVP PRN (19:46)
[2018-02-10] MEDS ORDERED: LEXAPRO ONE (21:02)
[2018-02-10] MEDS: LEXAPRO PO SCH (22:08)
[2018-02-11] MEDS: DEMEROL INJ IVP PRN ×3 (02:58→16:09)
[2018-02-11] MEDS: NS 1000 ML 1,000 ML IV SCH ×2 (03:01→08:25)
[2018-02-11] MEDS: NEURONTIN CAP 400 MG PO SCH ×3 (05:32→21:00)
[2018-02-11] MEDS: NORCO 10/325 TAB PO PRN ×2 (05:32→17:30)
[2018-02-11] MEDS: PHENERGAN INJ 25 MG IV PRN ×3 (05:32→18:31)
[2018-02-11] MEDS: MAALOX or MYLANTA PO PRN (05:32)
--- NOTE | 2018-02-11 05:43 | RAD ---
CHEST RADIOGRAPHS PA AND LATERAL VIEWS CLINICAL HISTORY: 62-year-old female with pneumonia. COMPARISON: None. FINDINGS: Right breast implant and right chest chemo port are unchanged. The cardiopericardial silhou ette is stably enlarged with diffuse prominence of the interstitium and perihilar lung markings. Ther e is no focal consolidation, pleural effusion or pneumothorax. The lungs are well inflated. Pulmonary vascularity is normal. Imaged osseous structures are intact. Soft tissues are unremarkable. IMPRESSION: Chronic cardiomegaly with diffuse prominence of the interstitium and perihilar lung markings, consist ent with COPD. Correlate clinically for underlying infection. Reported By:
[2018-02-11 06:07] LABS: BASOPHILS % (AUTO) 0.2 % (0.2-1.0); EOSINOPHILS % (AUTO) 0.4 % (0.9-2.9); HEMATOCRIT 27.6 % (36.0-47.0); HEMOGLOBIN 9.3 g/dL (12.0-16.0); LYMPHOCYTES # (AUTO) 1.1 X10^3/uL (1.3-2.9); MEAN CORPUSCULAR HEMOGLOBIN 31.4 pg (27.0-34.0); MEAN CORPUSCULAR HGB CONC 33.5 g/dL (33.0-35.0); MEAN CORPUSCULAR VOLUME 93.7 fL (80.0-100.0); MEAN PLATELET VOLUME 9.4 fL (7.4-11.0); MONOCYTES # (AUTO) 0.9 x10^3/uL (0.3-0.8); MONOCYTES % (AUTO) 6.8 % (0.0-13.0); NEUTROPHILS # (AUTO) 10.6 x10^3/uL (2.2-4.8); NEUTROPHILS % (AUTO) 83.6 % (42.0-75.0); PLATELET COUNT 213 X10^3/uL (150.0-450.0); RED BLOOD COUNT 2.95 X10^6/uL (3.5-5.4); WHITE BLOOD COUNT 12.7 X10^3/uL (3.6-10.0)
[2018-02-11] MEDS: CEVIMELINE PO SCH ×3 (06:26→21:00)
[2018-02-11] MEDS: HumuLIN R SUBCUT PRN ×3 (06:26→17:30)
[2018-02-11 06:51] LABS: ALBUMIN 2.7 g/dL (3.4-5.0); CALCIUM 8.5 mg/dL (8.5-10.1); CARBON DIOXIDE 30.5 mmol/L (21-32); COR CA(FOR HYPOALB) 9.5 mg/dL (8.5-10.1); CREATININE 1.6 mg/dL (0.55-1.02); TOTAL PROTEIN 7.2 g/dL (6.4-8.2)
[2018-02-11 07:57] LABS: GASTRIC OCCULT BLOOD POSITIVE (NEGATIVE); PH 3
[2018-02-11] MEDS ORDERED: ZESTRIL TAB 20 MG ONE (08:42)
[2018-02-11] MEDS: EXEMESTANE PO SCH (08:46)
[2018-02-11] MEDS: TENORMIN PO SCH (08:47)
[2018-02-11] MEDS: ZITHROMAX INJ 500 MG VIAL 500 MG in NS 250 ML IV 250 ML IV SCH (08:47)
[2018-02-11] MEDS: ROBITUSSIN DM PO SCH ×4 (08:47→20:41)
[2018-02-11] MEDS: ZESTRIL TAB 20 MG PO SCH (08:47)
--- NOTE | 2018-02-11 13:44 | RAD ---
Examination: KUB History: Pain and distention Comparison reference 04/30/2016 Findings: Normal intestinal gas pattern without evidence for obstruction, mass, pathologic calcificat ion or ascites. Surgical clips right upper quadrant. Impression: No acute findings. Reported By:
[2018-02-11] MEDS ORDERED: LINZESS PO ONE (13:54)
[2018-02-11] MEDS: LINZESS PO ONE (13:56)
[2018-02-11] MEDS: ATIVAN TAB 1 MG PO PRN (18:31)
[2018-02-11] MEDS ORDERED: LEXAPRO ONE (20:36)
[2018-02-11] MEDS: LEXAPRO PO SCH (20:41)
[2018-02-11] MEDS: SNACK - Diabetic Appropriate PO SCH (22:22)
[2018-02-12] MEDS: NORCO 10/325 TAB PO PRN ×2 (00:12→09:30)
[2018-02-12] MEDS: MAALOX or MYLANTA PO PRN ×3 (00:12→20:43)
[2018-02-12] MEDS: PHENERGAN INJ 25 MG IV PRN ×2 (00:13→20:43)
[2018-02-12] MEDS: NEURONTIN CAP 400 MG PO SCH ×3 (06:02→21:31)
[2018-02-12] MEDS: CEVIMELINE PO SCH ×3 (06:02→21:30)
[2018-02-12] MEDS: HumuLIN R SUBCUT PRN ×3 (06:03→20:56)
[2018-02-12 06:22] LABS: BASOPHILS % (AUTO) 0.4 % (0.2-1.0); EOSINOPHILS % (AUTO) 0.1 % (0.9-2.9); HEMOGLOBIN 7.5 g/dL (12.0-16.0); LYMPHOCYTES # (AUTO) 0.9 X10^3/uL (1.3-2.9); LYMPHOCYTES % (AUTO) 7.8 % (21.0-51.0); MEAN CORPUSCULAR HGB CONC 34.1 g/dL (33.0-35.0); MEAN CORPUSCULAR VOLUME 93.9 fL (80.0-100.0); MEAN PLATELET VOLUME 9.3 fL (7.4-11.0); MONOCYTES # (AUTO) 0.8 x10^3/uL (0.3-0.8); MONOCYTES % (AUTO) 6.8 % (0.0-13.0); NEUTROPHILS # (AUTO) 9.5 x10^3/uL (2.2-4.8); NEUTROPHILS % (AUTO) 84.9 % (42.0-75.0); PLATELET COUNT 202 X10^3/uL (150.0-450.0); RED BLOOD COUNT 2.34 X10^6/uL (3.5-5.4); WHITE BLOOD COUNT 11.2 X10^3/uL (3.6-10.0)
[2018-02-12 06:26] LABS: ALBUMIN 2.3 g/dL (3.4-5.0); CALCIUM 8.4 mg/dL (8.5-10.1); CARBON DIOXIDE 28.7 mmol/L (21-32); COR CA(FOR HYPOALB) 9.8 mg/dL (8.5-10.1); CREATININE 1.39 mg/dL (0.55-1.02); TOTAL PROTEIN 6.3 g/dL (6.4-8.2)
[2018-02-12 06:38] LABS: PLATELET MORPHOLOGY COMMENT NORMAL (NORMAL)
[2018-02-12] MEDS ORDERED: ZESTRIL TAB 20 MG ONE (07:57)
[2018-02-12] MEDS: NS 1000 ML 1,000 ML IV SCH ×3 (08:25→15:15)
[2018-02-12] MEDS: ZITHROMAX INJ 500 MG VIAL 500 MG in NS 250 ML IV 250 ML IV SCH (08:26)
[2018-02-12] MEDS: ROBITUSSIN DM PO SCH ×4 (08:26→20:43)
[2018-02-12] MEDS: ZESTRIL TAB 20 MG PO SCH (08:27)
[2018-02-12] MEDS: TENORMIN PO SCH (08:27)
[2018-02-12] MEDS: EXEMESTANE PO SCH (08:28)
[2018-02-12] MEDS: PROVENTIL NEB TX 0.083% 2.5MG/ 3ML NEB PRN ×2 (11:57→16:08)
[2018-02-12] MEDS: LINZESS PO SCH (13:17)
[2018-02-12] MEDS: LINZESS PO ONE (13:20)
[2018-02-12] MEDS: DEMEROL INJ IVP PRN (15:28)
--- NOTE | 2018-02-12 16:18 | RAD ---
Indication: Shortness of breath Exam: Portable chest Comparison: 02/09/2018 Findings: The heart is mildly enlarged but unchanged. The pulmonary vessels are less prominent centra lly . There is moderate soft tissue fullness along the right upper chest wall which is slightly more prominent . There are hazy opacities scattered along the upper lobes which has increased. No effusion is seen. There is a right subclavian catheter in place which is unchanged. Impression: Stable mild cardiomegaly with resolving central pulmonary congestion . Overlying soft tissue fullness along the right chest wall superiorly which is more prominent. Increasing infiltrates or atelectasis along the upper lobes. Reported By:
[2018-02-12] MEDS ORDERED: LASIX IVP ONE ×2 (16:25→17:30)
[2018-02-12 17:49] LABS: APPEARANCE,URINE CLEAR (CLEAR); BILIRUBIN,URINE NEGATIVE (NEGATIVE); BLOOD/HEMOGLOBIN,URINE NEGATIVE (NEGATIVE); COLOR,URINE YELLOW (YELLOW); GLUCOSE, URINE 4+ (NEGATIVE); KETONES,URINE NEGATIVE (NEGATIVE); LEUKOCYTE ESTERASE ,URINE NEGATIVE (NEGATIVE); NITRITES,URINE NEGATIVE (NEGATIVE); PROTEIN,URINE 2+ (NEGATIVE); UROBILINOGEN,URINE NORMAL (NORMAL)
[2018-02-12 18:01] LABS: BACTERIA,URINE NEGATIVE /HPF (NEGATIVE); RBC,URINE NONE SEEN /HPF (NONE SEEN); SQUAMOUS EPITHELIAL CELL,UR RARE /HPF (NEGATIVE)
[2018-02-12 18:08] LABS: CKMB % 0.9 % (<4); CREATINE KINASE 143 Units/L (26-192); CREATINE KINASE MB 1.3 ng/mL (0-4.0); TROPONIN I < 0.02 ng/mL (0-1.5)
[2018-02-12] MEDS ORDERED: LEXAPRO ONE (20:36)
[2018-02-12] MEDS: ATIVAN TAB 1 MG PO PRN (20:40)
[2018-02-12] MEDS: LEXAPRO PO SCH (20:43)
[2018-02-12] MEDS: DUONEB 0.5 MG/3 MG NEB SCH (20:54)
[2018-02-12] MEDS: SNACK - Diabetic Appropriate PO SCH (21:30)
[2018-02-13 00:11] LABS: CKMB % 0.8 % (<4); CREATINE KINASE 123 Units/L (26-192); CREATINE KINASE MB < 1.0 ng/mL (0-4.0); TROPONIN I < 0.02 ng/mL (0-1.5)
[2018-02-13] MEDS: DUONEB 0.5 MG/3 MG NEB SCH ×6 (00:47→20:30)
[2018-02-13] MEDS: PHENERGAN INJ 25 MG IV PRN (00:55)
[2018-02-13] MEDS: MAALOX or MYLANTA PO PRN ×2 (00:55→10:54)
[2018-02-13] MEDS: NORCO 10/325 TAB PO PRN ×3 (04:12→23:34)
[2018-02-13] MEDS: NS 1000 ML 1,000 ML IV SCH ×2 (05:00→13:20)
[2018-02-13 05:09] LABS: BASOPHILS % (AUTO) 0.4 % (0.2-1.0); EOSINOPHILS # (AUTO) 0.2 x10^3/uL (0.0-0.2); EOSINOPHILS % (AUTO) 1.8 % (0.9-2.9); HEMATOCRIT 22.6 % (36.0-47.0); HEMOGLOBIN 7.8 g/dL (12.0-16.0); LYMPHOCYTES # (AUTO) 1.4 X10^3/uL (1.3-2.9); MEAN CORPUSCULAR HGB CONC 34.5 g/dL (33.0-35.0); MEAN CORPUSCULAR VOLUME 92.6 fL (80.0-100.0); MEAN PLATELET VOLUME 8.7 fL (7.4-11.0); MONOCYTES # (AUTO) 0.8 x10^3/uL (0.3-0.8); MONOCYTES % (AUTO) 8.5 % (0.0-13.0); NEUTROPHILS # (AUTO) 7.4 x10^3/uL (2.2-4.8); NEUTROPHILS % (AUTO) 75.3 % (42.0-75.0); PLATELET COUNT 235 X10^3/uL (150.0-450.0); RED BLOOD COUNT 2.44 X10^6/uL (3.5-5.4); RED CELL DISTRIBUTION WIDTH 13.9 % (11.6-16.5); WHITE BLOOD COUNT 9.9 X10^3/uL (3.6-10.0)
[2018-02-13 05:19] LABS: ALBUMIN 2.3 g/dL (3.4-5.0); CALCIUM 8.3 mg/dL (8.5-10.1); CARBON DIOXIDE 33.6 mmol/L (21-32); COR CA(FOR HYPOALB) 9.7 mg/dL (8.5-10.1); CREATININE 1.17 mg/dL (0.55-1.02); TOTAL PROTEIN 6.6 g/dL (6.4-8.2)
[2018-02-13 05:24] LABS: PLATELET MORPHOLOGY COMMENT NORMAL (NORMAL)
[2018-02-13 05:34] LABS: CKMB % 0.8 % (<4); CREATINE KINASE 123 Units/L (26-192); CREATINE KINASE MB < 1.0 ng/mL (0-4.0); TROPONIN I < 0.02 ng/mL (0-1.5)
[2018-02-13] MEDS: NEURONTIN CAP 400 MG PO SCH ×3 (05:45→21:09)
[2018-02-13] MEDS: CEVIMELINE PO SCH ×3 (05:46→21:08)
[2018-02-13] MEDS: HumuLIN R SUBCUT PRN ×4 (05:48→20:36)
--- NOTE | 2018-02-13 07:25 | RAD ---
HISTORY: Shortness of breath Study: Flat and upright abdomen, PA chest Comparison: 02/12/2018, 02/11/2018 Findings: The heart is upper limits normal in size. No definite congestive heart failure is noted. Increasing r ight lung infiltrates now involve the right upper and right lower lobes. There has been improvement i n the left upper lobe infiltrate being followed. The left lower lobe is free of acute alveolar infilt rates. No pleural effusions are identified. The bony thorax is unremarkable. The abdominal gas pattern is nonspecific and nonobstructive. No pneumoperitoneum is identified. No ab normal masses or abnormal calcifications are identified. IMPRESSION: Increasing right lung infiltrate now involving the right upper and right lower lobes Improving left upper lobe infiltrate Unremarkable flat and upright abdomen Reported By:
[2018-02-13] MEDS ORDERED: ZESTRIL TAB 20 MG ONE (08:08)
[2018-02-13] MEDS: LINZESS PO SCH (08:15)
[2018-02-13] MEDS: TENORMIN PO SCH (08:15)
[2018-02-13] MEDS: ZESTRIL TAB 20 MG PO SCH (08:15)
[2018-02-13] MEDS: ROBITUSSIN DM PO SCH ×4 (08:15→20:34)
[2018-02-13] MEDS: ZITHROMAX INJ 500 MG VIAL 500 MG in NS 250 ML IV 250 ML IV SCH (08:16)
[2018-02-13] MEDS: DEMEROL INJ IVP PRN (08:19)
[2018-02-13] MEDS: EXEMESTANE PO SCH (08:24)
[2018-02-13] MEDS ORDERED: LINZESS PO SCH (09:00)
[2018-02-13] MEDS: MUCOMYST 20% 200 MG/ML NEB SCH ×2 (09:35→20:30)
[2018-02-13] MEDS: PULMICORT NEB TX 0.5 MG NEB SCH ×2 (09:35→20:30)
[2018-02-13] MEDS ORDERED: PHARMACY CONSULT - DOSE _____ XX SCH (10:00)
[2018-02-13] MEDS: MUCINEX DM PO SCH ×2 (10:33→20:35)
[2018-02-13] MEDS: PEPCID TAB 20 MG PO SCH (11:32)
[2018-02-13] MEDS ORDERED: NS 100 ML IV 100 ML with VENOFER 400 MG IV NR ×2 (14:00)
[2018-02-13] MEDS: LEVAQUIN PREMIX IV 750 MG 750 MG/150 ML BAG IV SCH (15:54)
[2018-02-13] MEDS ORDERED: SALINE 3% 15 ML NEB TX ONE (16:27)
--- NOTE | 2018-02-13 17:46 | PCM.PROG ---
Progress Note - Progress Note for Day of Date of Exam: 02/13/18 - Subjective Subjective: 62 WF ADMISSION ON 02/09 WITH SOB, ABDOMINAL DISTENTION. PT CONTINUES WITH CO COUGH AND SOB, PT GIVEN LASIX 40MG IV ON 02/12 REPORTS FEELS "A LITTLE BETTER" THIS AM. PT CURRENTLY ON IV ZITHROMAX, KUB THIS AM REVLEALING-Increasing right lung infiltrate now involving the right upper and right lower lobes. REPEAT SPUTUM, CT CHEST Q AM, ECHO, MUCOMYST AND BUDESONIDE TO JET NEBS. LASIX 20MG IV. PT HAS AZEVEDO CATH FOR STRICT I & OS. - Past Medical Family Social History Past Med/Fam/Surg Hx: No changes since H&P Allergies: Allergies penicillin G Allergy (Verified 09/02/17 17:26) sulfamethoxazole [From Bactrim] Allergy (Verified 09/02/17 17:26) trimethoprim [From Bactrim] Allergy (Verified 09/02/17 17:26) - Review of Systems ROS: No change since H&P - Vital Signs and I&O's Vital Signs: Temperature 98.9 F Pulse Rate [Right Brachial] 70 Pulse Rate 72 Respiratory Rate 16 Blood Pressure [Right Arm] 127/58 Blood Pressure 128/59 O2 Sat by Pulse Oximetry 91 Intake and Output: Intake & Output 02/11/18 02/12/18 02/13/18 02/14/18 11:59 11:59 11:59 11:59 Intake Total 1350 / 1350 1440 / 1440 1750 / 1750 600 / 600 Output Total 1450 / 1450 225 / 225 3625 / 3625 550 / 550 Balance -100 / -100 1215 / 1215 -1875 / -1875 50 / 50 - Physical Exam Oriented: Normal Eyes: Normal Ear: Normal Nose: Normal Throat: Normal Respiratory: Diminished, Rhonchi Cardiovascular: Tachycardia, Edema : Normal Auscultation: Bowel Sounds: Normal Tenderness: Diffuse (MODERATE DISTENTION). negative: Rebound, Guarding Skin: Normal Musculoskeletal: Back:Lumbar, Sensory Deficit Psychiatric: Depression Affect: Anxious Speech Pattern: Clear, Appropriate - Laboratory and Diagnostics Result Diagrams: 02/13/18 04:03 02/13/18 04:03 Labs: 02/12/18 17:28 Sputum - Expectorated Sputum Sputum Culture - Final 02/12/18 17:28 Sputum - Expectorated Sputum - Final 02/10/18 11:51 Blood Blood Culture - Preliminary 02/10/18 11:35 Blood Blood Culture - Preliminary 02/09/18 16:59 Urine,Clean Catch Urine Culture - Final 02/10/18 17:42 Sputum - Expectorated Sputum Sputum Culture - Final 02/10/18 17:42 Sputum - Expectorated Sputum - Final Laboratory WBC 9.9 X10^3/uL (3.6-10.0) 02/13/18 04:03 RBC 2.44 X10^6/uL (3.5-5.4) L 02/13/18 04:03 Hgb 7.8 g/dL (12.0-16.0) L 02/13/18 04:03 Hct 22.6 % (36.0-47.0) L 02/13/18 04:03 MCV 92.6 fL (80.0-100.0) 02/13/18 04:03 MCH 32.0 pg (27.0-34.0) 02/13/18 04:03 MCHC 34.5 g/dL (33.0-35.0) 02/13/18 04:03 RDW 13.9 % (11.6-16.5) 02/13/18 04:03 Plt Count 235 X10^3/uL (150.0-450.0) 02/13/18 04:03 Plt Count Comment Adequate (ADEQUATE) 02/13/18 04:03 MPV 8.7 fL (7.4-11.0) 02/13/18 04:03 Neut % (Auto) 75.3 % (42.0-75.0) H 02/13/18 04:03 Lymph % (Auto) 14.0 % (21.0-51.0) L 02/13/18 04:03 [place] % (Auto) 8.5 % (0.0-13.0) 02/13/18 04:03 Eos % (Auto) 1.8 % (0.9-2.9) 02/13/18 04:03 Baso % (Auto) 0.4 % (0.2-1.0) 02/13/18 04:03 Neut # (Auto) 7.4 x10^3/uL (2.2-4.8) H 02/13/18 04:03 Lymph # (Auto) 1.4 X10^3/uL (1.3-2.9) 02/13/18 04:03 [place] # (Auto) 0.8 x10^3/uL (0.3-0.8) 02/13/18 04:03 Eos # (Auto) 0.2 x10^3/uL (0.0-0.2) 02/13/18 04:03 Baso # (Auto) 0.0 X10^3/uL (0.0-0.1) 02/13/18 04:03 Absolute Nucleated RBC 0.0 /100WBC 02/13/18 04:03 Plt Morphology Comment Normal (NORMAL) 02/13/18 04:03 RBC Morphology Normal (NORMAL) 02/13/18 04:03 Sample Site Lrad 02/09/18 12:35 ABG pH 7.460 (7.35-7.45) H 02/09/18 12:35 ABG pCO2 42.0 mmHg (35.0-45.0) 02/09/18 12:35 ABG pO2 56.0 mmHg (80.0-100.0) L 02/09/18 12:35 ABG HCO3 29.9 mmol/L (22-26) H 02/09/18 12:35 ABG O2 Saturation 90.0 % (90-100) 02/09/18 12:35 ABG Base Excess 5.5 mmol/L (-2.0-2.0) H 02/09/18 12:35 Yoshi Test Pos 02/09/18 12:35 A-a Gradient 41.0 mmHg 02/09/18 12:35 FiO2 21 02/09/18 12:35 Blood Gas Comments Son well ah 02/09/18 12:35 Sodium 142 mmol/L (136-145) 02/13/18 04:03 Corrected Sodium 146 mmol/L (136-145) H 02/13/18 04:03 Potassium 3.9 mmol/L (3.5-5.1) 02/13/18 04:03 Chloride 104 mmol/L (98-107) 02/13/18 04:03 Carbon Dioxide 33.6 mmol/L (21-32) H 02/13/18 04:03 BUN 26 mg/dL (7-18) H 02/13/18 04:03 Creatinine 1.17 mg/dL (0.55-1.02) H 02/13/18 04:03 Est GFR (MDRD) Af Amer 60 (>60) 02/13/18 04:03 Est GFR (MDRD) Non-Af 49 (>60) L 02/13/18 04:03 Glucose 259 mg/dL (65-99) H 02/13/18 04:03 POC Glucose (mg/dL) 265 mg/dL (65-99) H 02/13/18 16:29 Calcium 8.3 mg/dL (8.5-10.1) L 02/13/18 04:03 Corrected Calcium 9.7 mg/dL (8.5-10.1) 02/13/18 04:03 Iron 26 ug/dL (50-175) L 02/09/18 11:48 Transferrin 204 mg/dL (202-364) 02/09/18 11:48 Ferritin 217 ng/mL (8-252) 02/09/18 11:48 Total Bilirubin 0.40 mg/dL (0.2-1.0) 02/13/18 04:03 AST 36 Units/L (15-37) 02/13/18 04:03 ALT 37 Units/L (12-78) 02/13/18 04:03 Alkaline Phosphatase 113 Units/L (46-116) 02/13/18 04:03 Ammonia < 10 umol/L (11-32) L 02/10/18 11:35 Creatine Kinase 123 Units/L (26-192) 02/13/18 04:03 CK-MB (CK-2) < 1.0 ng/mL (0-4.0) 02/13/18 04:03 CK/CKMB % Calc 0.8 % (<4) 02/13/18 04:03 Troponin I < 0.02 ng/mL (0-1.5) 02/13/18 04:03 Total Protein 6.6 g/dL (6.4-8.2) 02/13/18 04:03 Albumin 2.3 g/dL (3.4-5.0) L 02/13/18 04:03 Globulin 4.3 g/dL (2.5-4.5) 02/13/18 04:03 Albumin/Globulin Ratio 0.5 Ratio (1.1-2.1) L 02/13/18 04:03 Amylase 19 Units/L (25-115) L 02/10/18 11:35 Lipase 77 Units/L (73-393) 02/10/18 11:35 Vitamin B12 348 pg/mL (193-986) 02/09/18 11:48 Folate 16.4 ng/mL (>8.6) 02/09/18 11:48 Specimen Type Random urine 02/12/18 17:28 Urine Color Yellow (YELLOW) 02/12/18 17:28 Urine Appearance Clear (CLEAR) 02/12/18 17:28 Urine pH 5.0 (5.0 - 8.0) 02/12/18 17:28 Ur Specific [place] 1.010 (1.000-1.030) 02/12/18 17:28 Urine Protein 2+ (NEGATIVE) 02/12/18 17:28 Urine Glucose (UA) 4+ (NEGATIVE) 02/12/18 17:28 Urine Ketones Negative (NEGATIVE) 02/12/18 17:28 Urine Occult Blood Negative (NEGATIVE) 02/12/18 17:28 Urine Nitrite Negative (NEGATIVE) 02/12/18 17:28 Urine Bilirubin Negative (NEGATIVE) 02/12/18 17:28 Urine Urobilinogen Normal (NORMAL) 02/12/18 17:28 Ur Leukocyte Esterase Negative (NEGATIVE) 02/12/18 17:28 Urine RBC None seen /HPF (NONE SEEN) 02/12/18 17:28 Urine WBC None seen /HPF (NONE SEEN) 02/12/18 17:28 Ur Squamous Epith Cells Rare /HPF (NEGATIVE) 02/12/18 17:28 Urine Bacteria Negative /HPF (NEGATIVE) 02/12/18 17:28 Ur Culture Indicated? No/not indicated 02/12/18 17:28 Gastric Occult Blood Positive (NEGATIVE) A 02/11/18 06:10 Stool Description 3g brown semi solid 02/13/18 08:05 Stool pH 3 02/11/18 06:10 Stl Occult Blood (IFOB) Positive (NEGATIVE) A 02/13/18 08:05 - Plan (1) Pneumonia Status: Acute Plan: IV ATBX ZITHROMAX, LEVAQUIN. ADD BUDESONIDE, LASIX 20IV X 1 DOSE THIS AM, MUCOMYST TO NEB. STRICT I & OS, REPEAT SPUTUM. SUPPLEMENTAL O2. AM CT CHEST (2) PEREYRA (dyspnea on exertion) Status: Acute Plan: ABG AND EKG ON ADMISSION. CXR, SERIAL CE. BP AND BLOOD PRESSURE CONTROL. SUPPLEMENTAL O2 RESP CONSULT. STRICT I& OS, SSI COVERAGE (3) Hypertension Status: Acute (4) Diabetes Status: Acute Plan: TOUJEO, SSI (5) Abdominal distension Status: Acute (6) COPD (chronic obstructive pulmonary disease) with acute bronchitis Status: Acute Plan: BC AND SPUTUM CULTURES. IV ATBX, RESP THERAPY (7) Murmur Status: Acute (8) Cardiomegaly Status: Acute (9) Anemia Status: Acute Plan: GASTROCULT, OCCULT STOOL. PPI BID, ANEMIA PANEL. VENAFER IRON INFUSION
[2018-02-13] MEDS: PROTONIX INJ 40 MG VIAL IVP SCH ×2 (17:58→20:34)
[2018-02-13] MEDS ORDERED: LASIX IVP SCH (18:00)
[2018-02-13] MEDS ORDERED: LEXAPRO ONE (19:25)
[2018-02-13] MEDS: SNACK - Diabetic Appropriate PO SCH (20:34)
[2018-02-13] MEDS: LEXAPRO PO SCH (20:35)
[2018-02-14] MEDS: DUONEB 0.5 MG/3 MG NEB SCH ×6 (01:11→21:09)
[2018-02-14 05:54] LABS: BASOPHILS # (AUTO) 0.1 X10^3/uL (0.0-0.1); BASOPHILS % (AUTO) 0.6 % (0.2-1.0); EOSINOPHILS # (AUTO) 0.4 x10^3/uL (0.0-0.2); EOSINOPHILS % (AUTO) 4.4 % (0.9-2.9); HEMATOCRIT 22.3 % (36.0-47.0); HEMOGLOBIN 7.7 g/dL (12.0-16.0); LYMPHOCYTES # (AUTO) 1.7 X10^3/uL (1.3-2.9); LYMPHOCYTES % (AUTO) 17.5 % (21.0-51.0); MEAN CORPUSCULAR HEMOGLOBIN 32.2 pg (27.0-34.0); MEAN CORPUSCULAR HGB CONC 34.4 g/dL (33.0-35.0); MEAN CORPUSCULAR VOLUME 93.5 fL (80.0-100.0); MEAN PLATELET VOLUME 8.1 fL (7.4-11.0); MONOCYTES % (AUTO) 10.1 % (0.0-13.0); NEUTROPHILS # (AUTO) 6.6 x10^3/uL (2.2-4.8); NEUTROPHILS % (AUTO) 67.4 % (42.0-75.0); PLATELET COUNT 244 X10^3/uL (150.0-450.0); RED BLOOD COUNT 2.39 X10^6/uL (3.5-5.4); RED CELL DISTRIBUTION WIDTH 14.1 % (11.6-16.5); WHITE BLOOD COUNT 9.8 X10^3/uL (3.6-10.0)
[2018-02-14 05:57] LABS: PLATELET MORPHOLOGY COMMENT NORMAL (NORMAL)
[2018-02-14 06:01] LABS: ALANINE AMINOTRANSFERASE 38 Units/L (12-78); ALBUMIN 2.2 g/dL (3.4-5.0); ALKALINE PHOSPHATASE 109 Units/L (46-116); ASPARTATE AMINO TRANSFERASE 37 Units/L (15-37); BLOOD UREA NITROGEN 16 mg/dL (7-18); CALCIUM 8.2 mg/dL (8.5-10.1); CARBON DIOXIDE 29.7 mmol/L (21-32); CHLORIDE 105 mmol/L (98-107); COR CA(FOR HYPOALB) 9.6 mg/dL (8.5-10.1); COR NA(FOR HYPERGLY) 143 mmol/L (136-145); CREATININE 1.01 mg/dL (0.55-1.02); SODIUM 141 mmol/L (136-145); TOTAL PROTEIN 6.7 g/dL (6.4-8.2); eGFR NON BLACK RACES 59 (>60)
[2018-02-14] MEDS: NEURONTIN CAP 400 MG PO SCH ×4 (07:57→21:35)
[2018-02-14] MEDS: CEVIMELINE PO SCH ×3 (07:57→22:03)
[2018-02-14] MEDS: MUCOMYST 20% 200 MG/ML NEB SCH ×2 (08:54→21:09)
[2018-02-14] MEDS: PULMICORT NEB TX 0.5 MG NEB SCH ×2 (08:54→21:09)
[2018-02-14] MEDS ORDERED: ZESTRIL TAB 20 MG ONE (09:40)
[2018-02-14] MEDS: LINZESS PO SCH (09:50)
[2018-02-14] MEDS: ROBITUSSIN DM PO SCH ×4 (09:50→22:02)
[2018-02-14] MEDS: LEVAQUIN PREMIX IV 750 MG 750 MG/150 ML BAG IV SCH (09:52)
[2018-02-14] MEDS: MUCINEX DM PO SCH ×2 (09:53→21:50)
[2018-02-14] MEDS: PEPCID TAB 20 MG PO SCH (09:53)
[2018-02-14] MEDS: ZITHROMAX INJ 500 MG VIAL 500 MG in NS 250 ML IV 250 ML IV SCH (09:54)
[2018-02-14] MEDS: ZESTRIL TAB 20 MG PO SCH (09:54)
[2018-02-14] MEDS: TENORMIN PO SCH (09:54)
[2018-02-14] MEDS: PROTONIX INJ 40 MG VIAL IVP SCH ×2 (09:54→21:51)
[2018-02-14] MEDS: PHENERGAN INJ 25 MG IV PRN ×2 (10:01→23:18)
--- NOTE | 2018-02-14 10:04 | CT ---
CT chest with contrast Indication: Pneumonia Comparison: Chest x-ray performed on 02/12/2018 Technique: 5 mm axial images the chest performed after IV contrast administration. Coronal and sagitt al reformatted images were also provided. Findings: The thyroid gland is normal. Heart size is normal without pericardial effusion. Moderate ca lcification of the mitral valve along with scattered calcifications of the coronary artery's. The tho racic aorta is normal in caliber and contour with scattered calcified atherosclerotic disease as well . Pulmonary artery is normal in caliber and central opacification. There are mildly enlarged AP windo w and paratracheal lymph nodes present. There are also enlarged right hilar and shotty left hilar lym ph nodes. Dense airspace consolidation is noted throughout the right and left lungs most severely aff ecting the upper lobes with interlobular septal thickening and air bronchograms noted throughout both lungs as well. There is mild interlobular septal thickening also present within the lung bases. The no discrete nodule or mass identified within either lung however the given airspace disease this is n ot excluded. Compressive atelectasis is noted within both lower lobes with moderate-sized bilateral p leural effusions. No pneumothorax. Imaging of the upper abdomen demonstrates prior cholecystectomy. Review of bone windows demonstrates no acute osseous abnormality. A right sided saline breast implant is noted without evidence of compli cation. Impression: Multi focal dense airspace consolidation superimposed with interlobular septal thickening and moderat e bilateral pleural effusions. Findings most likely represent multi focal pneumonia however given the combination of interlobular septal thickening and airspace disease asymmetric pulmonary interstitial edema, alveolar proteinosis or alveolar hemorrhage are all considerations however felt less likely. Correlation follow-up CT chest examination in 6-8 weeks is recommended to ensure resolution. Enlarged right hilar, AP window and paratracheal lymphadenopathy is likely reactive, however attentio n on follow-up examination is recommended. Additional incidental findings as described above. Reported By:
[2018-02-14 10:27] LABS: ABG BASE EXCESS 1.5 mmol/L (-2.0-2.0); ABG HCO3 25.9 mmol/L (22-26)
[2018-02-14 10:28] LABS: ABG ALLEN TEST POS; FRACTIONATED INSPIRED OXYGEN 28
[2018-02-14] MEDS: HumuLIN R SUBCUT PRN ×2 (11:41→22:02)
[2018-02-14] MEDS: NORCO 10/325 TAB PO PRN ×2 (12:12→21:36)
[2018-02-14] MEDS: LASIX IVP SCH ×2 (13:55→21:35)
[2018-02-14 16:22] LABS: ABG ALLEN TEST POS; ABG BASE EXCESS 5.8 mmol/L (-2.0-2.0); ABG HCO3 30.6 mmol/L (22-26); FRACTIONATED INSPIRED OXYGEN 28
--- NOTE | 2018-02-14 17:55 | PCM.PROG ---
Progress Note - Progress Note for Day of Date of Exam: 02/14/18 - Subjective Subjective: 62 WF ADMISSION ON 02/09 WITH SOB, ABDOMINAL DISTENTION CO COUGH AND CONGESTION. PT WAS STARTED ON PNEUMONIA PROTOCOL, IV ZITHROMAX AND JET NEBS WITH CONTINUED COUGH, WHEEZING AND SOB. PT ON LEVAQUIN IV, BUDESONIDE. NPO FOR CT CHEST WITH CONTRAST. PT HAD DIFFUSE FINE RALES TO BILATERAL BASES, ADDED LASIX 40 IV BID, HOURLY I & OS, REPEAT ABG. DISCUSSED WITH PT AND FAMILY POSSIBLE NEED FOR TRANSFER TO TERTIARY CARE FOR CARDIAC EVALUATION DUE TO CHF FINDING WITHOUT KNOWN CAD. FAMILY AGREEABLE WITH PLAN IF NEEDED. PT SATS DECREASED IN LOW TO MID 80% ON 3L PER NC WHILE EATING BREAKFAST. PT CO UPPER ABD SORENESS FROM COUGH AND CO NAUSEA. - Past Medical Family Social History Past Med/Fam/Surg Hx: No changes since H&P Allergies: Allergies penicillin G Allergy (Verified 09/02/17 17:26) sulfamethoxazole [From Bactrim] Allergy (Verified 09/02/17 17:26) trimethoprim [From Bactrim] Allergy (Verified 09/02/17 17:26) - Review of Systems ROS: No change since H&P - Vital Signs and I&O's Vital Signs: Temperature 99.1 F Pulse Rate [Right Brachial] 76 Pulse Rate 82 Respiratory Rate 20 Blood Pressure [Right Arm] 145/65 Blood Pressure 128/59 O2 Sat by Pulse Oximetry 92 Intake and Output: Intake & Output 02/12/18 02/13/18 02/14/18 02/15/18 11:59 11:59 11:59 11:59 Intake Total 1440 / 1440 1750 / 1750 1740 / 1740 1030 / 1030 Output Total 225 / 225 3625 / 3625 2050 / 205 800 / 800 Balance 1215 / 1215 -1875 / -1875 -310 / -310 230 / 230 - Physical Exam Oriented: Normal Eyes: Normal Ear: Normal Nose: Normal Throat: Normal Respiratory: Diminished, Rales Cardiovascular: Tachycardia, Edema : Normal Auscultation: Bowel Sounds: Normal Tenderness: Diffuse (MODERATE DISTENTION). negative: Rebound, Guarding Skin: Normal Musculoskeletal: Back:Lumbar, Sensory Deficit Psychiatric: Depression Affect: Anxious Speech Pattern: Clear, Appropriate - Laboratory and Diagnostics Result Diagrams: 02/14/18 05:33 02/14/18 05:33 Labs: 02/12/18 17:28 Sputum - Expectorated Sputum Sputum Culture - Final 02/12/18 17:28 Sputum - Expectorated Sputum - Final 02/10/18 11:51 Blood Blood Culture - Preliminary 02/10/18 11:35 Blood Blood Culture - Preliminary 02/09/18 16:59 Urine,Clean Catch Urine Culture - Final 02/10/18 17:42 Sputum - Expectorated Sputum Sputum Culture - Final 02/10/18 17:42 Sputum - Expectorated Sputum - Final Laboratory WBC 9.8 X10^3/uL (3.6-10.0) 02/14/18 05:33 RBC 2.39 X10^6/uL (3.5-5.4) L 02/14/18 05:33 Hgb 7.7 g/dL (12.0-16.0) L 02/14/18 05:33 Hct 22.3 % (36.0-47.0) L 02/14/18 05:33 MCV 93.5 fL (80.0-100.0) 02/14/18 05:33 MCH 32.2 pg (27.0-34.0) 02/14/18 05:33 MCHC 34.4 g/dL (33.0-35.0) 02/14/18 05:33 RDW 14.1 % (11.6-16.5) 02/14/18 05:33 Plt Count 244 X10^3/uL (150.0-450.0) 02/14/18 05:33 Plt Count Comment Adequate (ADEQUATE) 02/14/18 05:33 MPV 8.1 fL (7.4-11.0) 02/14/18 05:33 Neut % (Auto) 67.4 % (42.0-75.0) 02/14/18 05:33 Lymph % (Auto) 17.5 % (21.0-51.0) L 02/14/18 05:33 [place] % (Auto) 10.1 % (0.0-13.0) 02/14/18 05:33 Eos % (Auto) 4.4 % (0.9-2.9) H 02/14/18 05:33 Baso % (Auto) 0.6 % (0.2-1.0) 02/14/18 05:33 Neut # (Auto) 6.6 x10^3/uL (2.2-4.8) H 02/14/18 05:33 Lymph # (Auto) 1.7 X10^3/uL (1.3-2.9) 02/14/18 05:33 [place] # (Auto) 1.0 x10^3/uL (0.3-0.8) H 02/14/18 05:33 Eos # (Auto) 0.4 x10^3/uL (0.0-0.2) H 02/14/18 05:33 Baso # (Auto) 0.1 X10^3/uL (0.0-0.1) 02/14/18 05:33 Absolute Nucleated RBC 0.0 /100WBC 02/14/18 05:33 Plt Morphology Comment Normal (NORMAL) 02/14/18 05:33 RBC Morphology Normal (NORMAL) 02/14/18 05:33 Sample Site Rr 02/14/18 16:06 ABG pH 7.450 (7.35-7.45) 02/14/18 16:06 ABG pCO2 44.0 mmHg (35.0-45.0) 02/14/18 16:06 ABG pO2 77.0 mmHg (80.0-100.0) L 02/14/18 16:06 ABG HCO3 30.6 mmol/L (22-26) H* 02/14/18 16:06 ABG O2 Saturation 96.0 % (90-100) 02/14/18 16:06 ABG Base Excess 5.8 mmol/L (-2.0-2.0) H 02/14/18 16:06 Yoshi Test Pos 02/14/18 16:06 A-a Gradient 68.0 mmHg 02/14/18 16:06 FiO2 28 02/14/18 16:06 Blood Gas Comments Pt wesley well elj 02/14/18 16:06 Sodium 141 mmol/L (136-145) 02/14/18 05:33 Corrected Sodium 143 mmol/L (136-145) 02/14/18 05:33 Potassium 4.2 mmol/L (3.5-5.1) 02/14/18 05:33 Chloride 105 mmol/L (98-107) 02/14/18 05:33 Carbon Dioxide 29.7 mmol/L (21-32) 02/14/18 05:33 BUN 16 mg/dL (7-18) 02/14/18 05:33 Creatinine 1.01 mg/dL (0.55-1.02) 02/14/18 05:33 Est GFR (MDRD) Af Amer > 60 (>60) 02/14/18 05:33 Est GFR (MDRD) Non-Af 59 (>60) 02/14/18 05:33 Glucose 169 mg/dL (65-99) H 02/14/18 05:33 POC Glucose (mg/dL) 168 mg/dL (65-99) H 02/14/18 16:39 Calcium 8.2 mg/dL (8.5-10.1) L 02/14/18 05:33 Corrected Calcium 9.6 mg/dL (8.5-10.1) 02/14/18 05:33 Iron 26 ug/dL (50-175) L 02/09/18 11:48 Transferrin 204 mg/dL (202-364) 02/09/18 11:48 Ferritin 217 ng/mL (8-252) 02/09/18 11:48 Total Bilirubin 0.30 mg/dL (0.2-1.0) 02/14/18 05:33 AST 37 Units/L (15-37) 02/14/18 05:33 ALT 38 Units/L (12-78) 02/14/18 05:33 Alkaline Phosphatase 109 Units/L (46-116) 02/14/18 05:33 Ammonia < 10 umol/L (11-32) L 02/10/18 11:35 Creatine Kinase 123 Units/L (26-192) 02/13/18 04:03 CK-MB (CK-2) < 1.0 ng/mL (0-4.0) 02/13/18 04:03 CK/CKMB % Calc 0.8 % (<4) 02/13/18 04:03 Troponin I < 0.02 ng/mL (0-1.5) 02/13/18 04:03 Total Protein 6.7 g/dL (6.4-8.2) 02/14/18 05:33 Albumin 2.2 g/dL (3.4-5.0) L 02/14/18 05:33 Globulin 4.5 g/dL (2.5-4.5) 02/14/18 05:33 Albumin/Globulin Ratio 0.5 Ratio (1.1-2.1) L 02/14/18 05:33 Amylase 19 Units/L (25-115) L 02/10/18 11:35 Lipase 77 Units/L (73-393) 02/10/18 11:35 Vitamin B12 348 pg/mL (193-986) 02/09/18 11:48 Folate 16.4 ng/mL (>8.6) 02/09/18 11:48 Specimen Type Random urine 02/12/18 17:28 Urine Color Yellow (YELLOW) 02/12/18 17:28 Urine Appearance Clear (CLEAR) 02/12/18 17:28 Urine pH 5.0 (5.0 - 8.0) 02/12/18 17:28 Ur Specific [place] 1.010 (1.000-1.030) 02/12/18 17:28 Urine Protein 2+ (NEGATIVE) 02/12/18 17:28 Urine Glucose (UA) 4+ (NEGATIVE) 02/12/18 17:28 Urine Ketones Negative (NEGATIVE) 02/12/18 17:28 Urine Occult Blood Negative (NEGATIVE) 02/12/18 17:28 Urine Nitrite Negative (NEGATIVE) 02/12/18 17:28 Urine Bilirubin Negative (NEGATIVE) 02/12/18 17:28 Urine Urobilinogen Normal (NORMAL) 02/12/18 17:28 Ur Leukocyte Esterase Negative (NEGATIVE) 02/12/18 17:28 Urine RBC None seen /HPF (NONE SEEN) 02/12/18 17:28 Urine WBC None seen /HPF (NONE SEEN) 02/12/18 17:28 Ur Squamous Epith Cells Rare /HPF (NEGATIVE) 02/12/18 17:28 Urine Bacteria Negative /HPF (NEGATIVE) 02/12/18 17:28 Ur Culture Indicated? No/not indicated 02/12/18 17:28 Gastric Occult Blood Positive (NEGATIVE) A 02/11/18 06:10 Stool Description 3g brown semi solid 02/13/18 08:05 Stool pH 3 02/11/18 06:10 Stl Occult Blood (IFOB) Positive (NEGATIVE) A 02/13/18 08:05 - Plan (1) Pneumonia Status: Acute Plan: IV ATBX ZITHROMAX, LEVAQUIN. ADD BUDESONIDE, MUCOMYST TO NEB. STRICT I & OS, REPEAT SPUTUM. SUPPLEMENTAL O2. AM CT CHEST (2) PEREYRA (dyspnea on exertion) Status: Acute Plan: ABG AND EKG ON ADMISSION. CXR, SERIAL CE. BP AND BLOOD PRESSURE CONTROL. SUPPLEMENTAL O2 RESP CONSULT. STRICT I& OS, SSI COVERAGE (3) Hypertension Status: Acute (4) Diabetes Status: Acute Plan: TOUJEO, SSI (5) Abdominal distension Status: Acute (6) COPD (chronic obstructive pulmonary disease) with acute bronchitis Status: Acute Plan: BC AND SPUTUM CULTURES. IV ATBX, RESP THERAPY (7) Murmur Status: Acute (8) Cardiomegaly Status: Acute (9) Anemia Status: Acute Plan: GASTROCULT, OCCULT STOOL. PPI BID, ANEMIA PANEL. VENAFER IRON INFUSION (10) Pleural effusion Status: Acute Plan: STRICT I & OS, IVF AT 10CC/HR, SUPPLEMENTAL O2
[2018-02-14] MEDS ORDERED: VANCOMYCIN HCL 1 GM VIAL 1 G in D5W 250 ML IV 250 ML IV SCH (19:01)
[2018-02-14 19:17] LABS: ABG BASE EXCESS 3.9 mmol/L (-2.0-2.0); ABG HCO3 27.7 mmol/L (22-26); FRACTIONATED INSPIRED OXYGEN 32
[2018-02-14] MEDS: SNACK - Diabetic Appropriate PO SCH (20:15)
[2018-02-14] MEDS ORDERED: VANCOMYCIN HCL 500 MG VIAL 750 MG in D5W 250 ML IV 250 ML IV SCH (21:00)
[2018-02-14] MEDS ORDERED: BROVANA IN SCH (21:00)
[2018-02-14] MEDS ORDERED: EXEMESTANE PO SCH (21:00)
[2018-02-14] MEDS ORDERED: LEXAPRO ONE (21:16)
[2018-02-14] MEDS: MERREM VIAL 1,000 MG in NS 100 ML IV + SPIKE MINIBAG* 100 ML IV SCH ×2 (21:34→22:02)
[2018-02-14] MEDS: LEXAPRO PO SCH (21:35)
[2018-02-14] MEDS: ATIVAN TAB 1 MG PO PRN (21:35)
[2018-02-14] MEDS: NS 1000 ML 1,000 ML IV SCH (21:51)
[2018-02-14 22:48] LABS: ABG ALLEN TEST POS; ABG HCO3 27.1 mmol/L (22-26); FRACTIONATED INSPIRED OXYGEN 50
[2018-02-15 00:41] VITALS: BP 132/60
--- NOTE | 2018-02-19 15:10 | PCM.DCPLAN ---
Discharge Summary - Admission Date Date of Admission: 02/11/18 - Discharge Date Discharge Date: 02/15/18 - Admission Diagnoses (1) COPD (chronic obstructive pulmonary disease) with acute bronchitis Status: Acute (2) PEREYRA (dyspnea on exertion) Status: Acute (3) Diabetes Status: Acute (4) Hypertension Status: Acute (5) Pleural effusion Status: Acute (6) Pneumonia Status: Acute - Discharge Diagnoses Discharge Diagnosis: SAME ADMISSION DIAGNOSIS - Discharge Medications Discharge Medications: Home Medication List atenolol 1 tab PO DAILY 02/09/18 [History] diclofenac sodium 1 applic TOPICAL QID 02/09/18 [History] escitalopram oxalate 1 tab PO HS 02/09/18 [History] exemestane 1 tab PO DAILY 02/09/18 [History] furosemide 1 tab PO DAILY PRN 02/09/18 [History] insulin glargine U-300 conc [Toujeo SoloStar U-300 Insulin] 50 units SUBCUT HS 02/09/18 [History] lisinopril 1 tab PO DAILY 02/09/18 [History] lorazepam 1 - 1.5 tab PO DAILY PRN 02/09/18 [History] meloxicam 1 tab PO DAILY 02/09/18 [History] potassium chloride 20 meq PO DAILY 02/09/18 [History] Prescriptions: - Hospital Course Vital Signs: Temperature 98.6 F Pulse Rate [Right Brachial] 76 Pulse Rate 78 Respiratory Rate 24 Blood Pressure [Right Arm] 145/65 Blood Pressure 132/60 O2 Sat by Pulse Oximetry 99 Latest Lab Results: Laboratory Last Values WBC 9.8 X10^3/uL (3.6-10.0) 02/14/18 05:33 RBC 2.39 X10^6/uL (3.5-5.4) L 02/14/18 05:33 Hgb 7.7 g/dL (12.0-16.0) L 02/14/18 05:33 Hct 22.3 % (36.0-47.0) L 02/14/18 05:33 MCV 93.5 fL (80.0-100.0) 02/14/18 05:33 MCH 32.2 pg (27.0-34.0) 02/14/18 05:33 MCHC 34.4 g/dL (33.0-35.0) 02/14/18 05:33 RDW 14.1 % (11.6-16.5) 02/14/18 05:33 Plt Count 244 X10^3/uL (150.0-450.0) 02/14/18 05:33 Plt Count Comment Adequate (ADEQUATE) 02/14/18 05:33 MPV 8.1 fL (7.4-11.0) 02/14/18 05:33 Neut % (Auto) 67.4 % (42.0-75.0) 02/14/18 05:33 Lymph % (Auto) 17.5 % (21.0-51.0) L 02/14/18 05:33 [place] % (Auto) 10.1 % (0.0-13.0) 02/14/18 05:33 Eos % (Auto) 4.4 % (0.9-2.9) H 02/14/18 05:33 Baso % (Auto) 0.6 % (0.2-1.0) 02/14/18 05:33 Neut # (Auto) 6.6 x10^3/uL (2.2-4.8) H 02/14/18 05:33 Lymph # (Auto) 1.7 X10^3/uL (1.3-2.9) 02/14/18 05:33 [place] # (Auto) 1.0 x10^3/uL (0.3-0.8) H 02/14/18 05:33 Eos # (Auto) 0.4 x10^3/uL (0.0-0.2) H 02/14/18 05:33 Baso # (Auto) 0.1 X10^3/uL (0.0-0.1) 02/14/18 05:33 Absolute Nucleated RBC 0.0 /100WBC 02/14/18 05:33 Plt Morphology Comment Normal (NORMAL) 02/14/18 05:33 RBC Morphology Normal (NORMAL) 02/14/18 05:33 Sample Site Rrad 02/14/18 22:36 ABG pH 7.450 (7.35-7.45) 02/14/18 22:36 ABG pCO2 39.0 mmHg (35.0-45.0) 02/14/18 22:36 ABG pO2 135.0 mmHg (80.0-100.0) H 02/14/18 22:36 ABG HCO3 27.1 mmol/L (22-26) H 02/14/18 22:36 ABG O2 Saturation 99.0 % (90-100) 02/14/18 22:36 ABG Base Excess 3.0 mmol/L (-2.0-2.0) H 02/14/18 22:36 Yoshi Test Pos 02/14/18 22:36 A-a Gradient 173.0 mmHg 02/14/18 22:36 FiO2 50 02/14/18 22:36 Blood Gas Comments Son abg well-mtf 02/14/18 22:36 Sodium 141 mmol/L (136-145) 02/14/18 05:33 Corrected Sodium 143 mmol/L (136-145) 02/14/18 05:33 Potassium 4.2 mmol/L (3.5-5.1) 02/14/18 05:33 Chloride 105 mmol/L (98-107) 02/14/18 05:33 Carbon Dioxide 29.7 mmol/L (21-32) 02/14/18 05:33 BUN 16 mg/dL (7-18) 02/14/18 05:33 Creatinine 1.01 mg/dL (0.55-1.02) 02/14/18 05:33 Est GFR (MDRD) Af Amer > 60 (>60) 02/14/18 05:33 Est GFR (MDRD) Non-Af 59 (>60) 02/14/18 05:33 Glucose 169 mg/dL (65-99) H 02/14/18 05:33 POC Glucose (mg/dL) 223 mg/dL (65-99) H 02/14/18 21:42 Calcium 8.2 mg/dL (8.5-10.1) L 02/14/18 05:33 Corrected Calcium 9.6 mg/dL (8.5-10.1) 02/14/18 05:33 Iron 26 ug/dL (50-175) L 02/09/18 11:48 Transferrin 204 mg/dL (202-364) 02/09/18 11:48 Ferritin 217 ng/mL (8-252) 02/09/18 11:48 Total Bilirubin 0.30 mg/dL (0.2-1.0) 02/14/18 05:33 AST 37 Units/L (15-37) 02/14/18 05:33 ALT 38 Units/L (12-78) 02/14/18 05:33 Alkaline Phosphatase 109 Units/L (46-116) 02/14/18 05:33 Ammonia < 10 umol/L (11-32) L 02/10/18 11:35 Creatine Kinase 123 Units/L (26-192) 02/13/18 04:03 CK-MB (CK-2) < 1.0 ng/mL (0-4.0) 02/13/18 04:03 CK/CKMB % Calc 0.8 % (<4) 02/13/18 04:03 Troponin I < 0.02 ng/mL (0-1.5) 02/13/18 04:03 Total Protein 6.7 g/dL (6.4-8.2) 02/14/18 05:33 Albumin 2.2 g/dL (3.4-5.0) L 02/14/18 05:33 Globulin 4.5 g/dL (2.5-4.5) 02/14/18 05:33 Albumin/Globulin Ratio 0.5 Ratio (1.1-2.1) L 02/14/18 05:33 Amylase 19 Units/L (25-115) L 02/10/18 11:35 Lipase 77 Units/L (73-393) 02/10/18 11:35 Vitamin B12 348 pg/mL (193-986) 02/09/18 11:48 Folate 16.4 ng/mL (>8.6) 02/09/18 11:48 Specimen Type Random urine 02/12/18 17:28 Urine Color Yellow (YELLOW) 02/12/18 17:28 Urine Appearance Clear (CLEAR) 02/12/18 17:28 Urine pH 5.0 (5.0 - 8.0) 02/12/18 17:28 Ur Specific [place] 1.010 (1.000-1.030) 02/12/18 17:28 Urine Protein 2+ (NEGATIVE) 02/12/18 17:28 Urine Glucose (UA) 4+ (NEGATIVE) 02/12/18 17:28 Urine Ketones Negative (NEGATIVE) 02/12/18 17:28 Urine Occult Blood Negative (NEGATIVE) 09/30/18 17:28 Urine Nitrite Negative (NEGATIVE) 02/12/18 17:28 Urine Bilirubin Negative (NEGATIVE) 02/12/18 17:28 Urine Urobilinogen Normal (NORMAL) 02/12/18 17:28 Ur Leukocyte Esterase Negative (NEGATIVE) 02/12/18 17:28 Urine RBC None seen /HPF (NONE SEEN) 02/12/18 17:28 Urine WBC None seen /HPF (NONE SEEN) 02/12/18 17:28 Ur Squamous Epith Cells Rare /HPF (NEGATIVE) 02/12/18 17:28 Urine Bacteria Negative /HPF (NEGATIVE) 02/12/18 17:28 Ur Culture Indicated? No/not indicated 02/12/18 17:28 Gastric Occult Blood Positive (NEGATIVE) A 02/11/18 06:10 Stool Description 3g brown semi solid 02/13/18 08:05 Stool pH 3 02/11/18 06:10 Stl Occult Blood (IFOB) Positive (NEGATIVE) A 02/13/18 08:05 Hospital Course: 62 WF ADMISSION ON 02/09 WITH SOB, ABDOMINAL DISTENTION CO COUGH AND CONGESTION. PT WAS STARTED ON PNEUMONIA PROTOCOL, IV ZITHROMAX AND JET NEBS WITH CONTINUED COUGH, WHEEZING AND SOB. PT ON LEVAQUIN IV, BUDESONIDE. NPO FOR CT CHEST WITH CONTRAST. PT HAD DIFFUSE FINE RALES TO BILATERAL BASES, ADDED LASIX 40 IV BID, HOURLY I & OS, REPEAT ABG. DISCUSSED WITH PT AND FAMILY POSSIBLE NEED FOR TRANSFER TO TERTIARY CARE FOR CARDIAC EVALUATION DUE TO CHF FINDING WITHOUT KNOWN CAD. FAMILY AGREEABLE WITH PLAN. PT SATS DECREASED IN LOW TO MID 80% ON 3L PER NC WHILE EATING BREAKFAST. PT WAS TRANSFERRED TO [facility] FOR FURTHER CARE. - Discharge Plan Disposition: XF [facility]OS[facility] Condition: Stable - Follow ups/Referrals Follow ups/Referrals: [facility] [place] [Other] (PT TRANSFERRED VIA EMS TO [facility] ICU ) THERESE MARCUS [Primary Care Provider] - 1 WEEK - Instructions
== END 2018-02-15 00:38 | disposition short-term general hospital (02) | DRG 194 ==
LOC: OBS → MED/SURG 14:01 → ICU 02-14 19:30
PROVIDERS: ADMIT Internal Medicine; ATTEND Internal Medicine
DX: R53.1 Weakness; R60.0 Localized edema; F41.8 Other specified anxiety disorders; J16.8 Pneumonia due to other specified infectious organisms; R01.1 Cardiac murmur, unspecified; E11.65 Type 2 diabetes mellitus with hyperglycemia; D64.89 Other specified anemias; J90 Pleural effusion, not elsewhere classified; J44.9 Chronic obstructive pulmonary disease, unspecified; J20.8 Acute bronchitis due to other specified organisms; I11.9 Hypertensive heart disease without heart failure; R06.02 Shortness of breath; R13.11 Dysphagia, oral phase; R51 Headache; M19.90 Unspecified osteoarthritis, unspecified site; R26.89 Other abnormalities of gait and mobility
CPT/HCPCS: 36415; 36600; 71010; 71020; 71045; 71046; 71260; 74000; 74018; 74022; 74176; 80053; 81001; 82140; 82150; 82270; 82271; 82550; 82553; 82607; 82728; 82746; 82803; 83540; 83690; 84466; 84484; 85025; 87040; 87070; 87086; 87205; 93005; 93010; 94640; 94660; 94669; 94760; 97165; A4222; A4618; A7030; C9113; G0378; J0456; J1756; J1815; J1885; J1940; J1956; J2175; J2185; J2550; J3370; J7030; J7050; J7060; J7608; J7613; J7620; J7626

== ENCOUNTER 2018-04-26 12:02 | Inpatient (IN) ==
[2018-04-26] MEDS ORDERED: NS 1000 ML 1,000 ML ONE (13:40)
[2018-04-26] MEDS: NS 1000 ML 1,000 ML IV SCH (13:47)
[2018-04-26 13:48] LABS: BASOPHILS # (AUTO) 0.1 X10^3/uL (0.0-0.1); BASOPHILS % (AUTO) 0.4 % (0.2-1.0); EOSINOPHILS # (AUTO) 0.1 x10^3/uL (0.0-0.2); EOSINOPHILS % (AUTO) 0.7 % (0.9-2.9); HEMATOCRIT 30.5 % (36.0-47.0); HEMOGLOBIN 10.4 g/dL (12.0-16.0); LYMPHOCYTES # (AUTO) 2.5 X10^3/uL (1.3-2.9); LYMPHOCYTES % (AUTO) 19.5 % (21.0-51.0); MEAN CORPUSCULAR HEMOGLOBIN 29.7 pg (27.0-34.0); MEAN CORPUSCULAR VOLUME 87.4 fL (80.0-100.0); MEAN PLATELET VOLUME 8.8 fL (7.4-11.0); MONOCYTES # (AUTO) 1.2 x10^3/uL (0.3-0.8); MONOCYTES % (AUTO) 9.4 % (0.0-13.0); NEUTROPHILS # (AUTO) 8.9 x10^3/uL (2.2-4.8); PLATELET COUNT 230 X10^3/uL (150.0-450.0); RED BLOOD COUNT 3.49 X10^6/uL (3.5-5.4); RED CELL DISTRIBUTION WIDTH 15.5 % (11.6-16.5); WHITE BLOOD COUNT 12.8 X10^3/uL (3.6-10.0)
[2018-04-26] MEDS ORDERED: PHENERGAN INJ 25 MG ONE (13:49)
[2018-04-26] MEDS ORDERED: PROTONIX INJ 40 MG VIAL ONE (13:49)
--- NOTE | 2018-04-26 13:54 | RAD ---
Exam: Portable chest History: 63-year-old female with cough and shortness of breath. Comparison: Previous chest radiograph from 03/08/2018 Findings: Heart size and pulmonary vasculature are normal. A right-sided PICC line appears to be present with the tip of the catheter extending to the superior vena cava. Haziness over the right hemithorax is likely related to patient's right breast implant. Lungs themselves are clear. No infiltrate or significant effusion on either side. Impression: No acute cardiopulmonary abnormality is seen on this exam Reported By:
[2018-04-26] MEDS: PROTONIX INJ 40 MG VIAL IVP SCH (13:55)
[2018-04-26] MEDS: PHENERGAN INJ 25 MG IVP PRN (13:55)
[2018-04-26 14:00] LABS: ALANINE AMINOTRANSFERASE 26 Units/L (12-78); ALBUMIN 3.6 g/dL (3.4-5.0); ALKALINE PHOSPHATASE 112 Units/L (46-116); ASPARTATE AMINO TRANSFERASE 18 Units/L (15-37); BLOOD UREA NITROGEN 83 mg/dL (7-18); CALCIUM 8.5 mg/dL (8.5-10.1); CARBON DIOXIDE 18.9 mmol/L (21-32); CHLORIDE 97 mmol/L (98-107); COR NA(FOR HYPERGLY) 138 mmol/L (136-145); CREATININE 6.41 mg/dL (0.55-1.02); MAGNESIUM 2.5 mg/dL (1.7-2.9); SODIUM 134 mmol/L (136-145); TOTAL PROTEIN 7.9 g/dL (6.4-8.2); eGFR NON BLACK RACES 7 (>60)
[2018-04-26 15:56] VITALS: BMI 27.4
[2018-04-26 16:08] LABS: ABG BASE EXCESS -10.6 mmol/L (-2.0-2.0)
--- NOTE | 2018-04-26 17:05 | US ---
History: Hypotension and shortness of breath Study: Ultrasound of the kidneys Findings: The right kidney measures 11.5 x 5.5 x 6.5 cm with cortical thickness of 2.5 cm. The left kidney measures 11.2 x 7.06 x 5.14 cm with cortical thickness of 2.54 cm. There is normal echogenicity without mass or hydronephrosis. The urinary bladder is unremarkable. Impression: Negative Reported By:
[2018-04-26 17:53] LABS: BILIRUBIN,URINE NEGATIVE (NEGATIVE); BLOOD/HEMOGLOBIN,URINE 4+ (NEGATIVE); GLUCOSE, URINE 1+ (NEGATIVE); KETONES,URINE NEGATIVE (NEGATIVE); LEUKOCYTE ESTERASE ,URINE 3+ (NEGATIVE); NITRITES,URINE NEGATIVE (NEGATIVE); PROTEIN,URINE 3+ (NEGATIVE); UROBILINOGEN,URINE NORMAL (NORMAL)
[2018-04-26 17:55] LABS: APPEARANCE,URINE CLOUDY (CLEAR); COLOR,URINE YELLOW (YELLOW)
[2018-04-26 18:00] LABS: AMORPHOUS SEDIMENT,UR 1+ /HPF (NEGATIVE); BACTERIA,URINE 2+ /HPF (NEGATIVE); SQUAMOUS EPITHELIAL CELL,UR MANY /HPF (NEGATIVE)
--- NOTE | 2018-04-26 18:21 | DR.H&P ---
H&P - History & Physical for Day of: H&P Date: 04/26/18 - Chief Complaint Chief Complaint: n/v, weakness, low blood pressure - History of Present Illness History of Present Illness: 63 WF DIRECT ADMIT FROM DR CRUZ OFFICE AFTER PRESENTING WITH CO SICK WITH N/V FOR SEVERAL DAYS, GRANDKIELMER AND DAUGHTER MALLIKA HAD HAD STOMACH VIRUS RECENTLY. PT BP IN OFFICE 86/64, GENERALIZED WEAKNESS AND PALE. PT CO SOB AND NON PRODUCTIVE COUGH. PT HAS PMH OF DM, COPD, HTN, ANEMIA, CHF, BREAST CANCER. PT ADMITTED TO ICU FOR TREATMENT OF ACUTE ILLNESS. - Past Medical History Past Medical History: Arthritis, CHF, COPD, Diabetes, Hypertension Additional Medical History: BREAST CANCER - Past Surgical History Surgical History: Cholecystectomy Additional Surgical History: BREAST CANCER - Family History Family Medical History: Diabetes Mellitus, Cancer, Hypertension - Social History Does patient currently use any type of tobacco product: No Have you used tobacco products in the last 12 months: No Type of Tobacco Use: None Does any household member use tobacco: No Alcohol Use: None Drug Use: Prescription Drugs - Medications Home Medications: penicillin G Allergy (Verified 09/02/17 17:26) sulfamethoxazole [From Bactrim] Allergy (Verified 09/02/17 17:26) trimethoprim [From Bactrim] Allergy (Verified 09/02/17 17:26) CONTINUE taking the following medications atenolol 50 mg PO DAILY 04/26/18 [History] cevimeline 30 mg PO TID 04/26/18 [History] diphenoxylate-atropine 1 - 2 tab PO Q6H 04/26/18 [History] escitalopram oxalate 10 mg PO HS 04/26/18 [History] exemestane 25 mg PO DAILY 04/26/18 [History] furosemide 40 mg PO DAILY PRN 04/26/18 [History] gabapentin 800 mg PO TID 04/26/18 [History] hydrocodone-acetaminophen 10 - 325 mg PO .Q6-8H PRN 04/26/18 [History] insulin aspart U-100 [Novolog Flexpen U-100 Insulin] 40 unit SUBCUT DAILY [History] lisinopril 20 mg PO DAILY 04/26/18 [History] lorazepam 1 - 1.5 mg PO DAILY PRN 04/26/18 [History] losartan 100 mg PO DAILY 04/26/18 [History] metformin 500 mg PO BID 04/26/18 [History] potassium chloride 1 tab PO DAILY 04/26/18 [History] promethazine 25 mg PO DAILY PRN 04/26/18 [History] quetiapine 1 tab PO BID 04/26/18 [History] rosuvastatin 40 mg PO DAILY 04/26/18 [History] tizanidine 6 mg PO HS 04/26/18 [History] topiramate 50 mg PO BID 04/26/18 [History] - Review of Systems Constitutional: Chills, Weakness, Malaise Eyes: No Symptoms Reported ENT: No Symptoms Reported Respiratory: Cough, Shortness of Breath Cardiovascular: No Symptoms Reported Gastrointestinal: Nausea, Vomiting Genitourinary: No Symptoms Reported Musculoskeletal: Back Pain Skin: No Symptoms Reported Neurological: Weakness - Physical Exam Vital Signs: Temperature 98.8 F Pulse Rate [Right Brachial] 74 Respiratory Rate 21 Blood Pressure [Right Arm] 129/61 Blood Pressure 132/60 O2 Sat by Pulse Oximetry 99 Oriented: Normal Eyes: Normal Ear: Normal Nose: Normal Throat: Dry Respiratory: RLL Diminished, LLL Diminished Cardiovascular: Normal. negative: Edema Auscultation: Bowel Sounds: Normal Palpation: Normal Tenderness: Epigastric (MILD) Skin: Decreased Turgur Musculoskeletal: Right, Left, Foot, Back:Lumbar, Sensory Deficit Psychiatric: Anxiety, Depression Mood Description: Calm Speech Pattern: Clear, Appropriate - Assessment/Plan (1) Hypotension Status: Acute Plan: ADMIT ICU, EKG CXR ON ADMISSION. CBC CMP UA LACTIC ACID, ABG, BLOOD CULTURES. CT HEAD AND ABD W/O,CONTINUOUS CARDIAC AND BP MONITORING. IV HYDRATION, SUPPLEMENTAL O2. AZEVEDO CATH WITH STRICT I&OS. VERIFY HOME MEDICATION (2) Acute renal failure Status: Acute (3) Nausea & vomiting Status: Acute (4) Dehydration Status: Acute (5) Hypertension Status: Acute (6) Diabetes Status: Acute (7) COPD (chronic obstructive pulmonary disease) with acute bronchitis Status: Acute (8) Anemia Status: Acute - Allergies Allergies/Adverse Reactions: Allergies Allergy/AdvReac Type Severity Reaction Status Date / Time penicillin G Allergy Verified 09/02/17 17:26 sulfamethoxazole Allergy Verified 09/02/17 17:26 [From Bactrim] trimethoprim [From Bactrim] Allergy Verified 09/02/17 17:26
[2018-04-26] MEDS ORDERED: LEXAPRO ONE (21:08)
[2018-04-26] MEDS: CRESTOR TAB 10 MG PO SCH (21:18)
[2018-04-26] MEDS: LEXAPRO PO SCH (21:18)
[2018-04-26] MEDS: NORCO 10/325 TAB PO PRN (21:18)
[2018-04-26] MEDS: SNACK - Diabetic Appropriate PO SCH (21:20)
[2018-04-26] MEDS: CEVIMELINE 30 MG PO SCH (21:20)
[2018-04-26] MEDS: HumuLIN R SUBCUT PRN (21:24)
[2018-04-27] MEDS: NS 1000 ML 1,000 ML IV SCH (03:49)
[2018-04-27] MEDS: CEVIMELINE 30 MG PO SCH ×3 (05:01→22:00)
[2018-04-27] MEDS: NORCO 10/325 TAB PO PRN ×2 (06:08→17:07)
[2018-04-27] MEDS: PHENERGAN INJ 25 MG IVP PRN (06:08)
[2018-04-27] MEDS: HumuLIN R SUBCUT PRN ×3 (06:14→22:19)
[2018-04-27 06:36] LABS: BASOPHILS # (AUTO) 0.1 X10^3/uL (0.0-0.1); BASOPHILS % (AUTO) 0.5 % (0.2-1.0); EOSINOPHILS # (AUTO) 0.1 x10^3/uL (0.0-0.2); EOSINOPHILS % (AUTO) 1.1 % (0.9-2.9); HEMATOCRIT 30.2 % (36.0-47.0); HEMOGLOBIN 10.4 g/dL (12.0-16.0); LYMPHOCYTES # (AUTO) 2.4 X10^3/uL (1.3-2.9); LYMPHOCYTES % (AUTO) 19.1 % (21.0-51.0); MEAN CORPUSCULAR HEMOGLOBIN 30.2 pg (27.0-34.0); MEAN CORPUSCULAR HGB CONC 34.5 g/dL (33.0-35.0); MEAN CORPUSCULAR VOLUME 87.5 fL (80.0-100.0); MEAN PLATELET VOLUME 9.1 fL (7.4-11.0); MONOCYTES # (AUTO) 1.2 x10^3/uL (0.3-0.8); MONOCYTES % (AUTO) 9.2 % (0.0-13.0); NEUTROPHILS # (AUTO) 8.9 x10^3/uL (2.2-4.8); NEUTROPHILS % (AUTO) 70.1 % (42.0-75.0); PLATELET COUNT 201 X10^3/uL (150.0-450.0); RED BLOOD COUNT 3.46 X10^6/uL (3.5-5.4); RED CELL DISTRIBUTION WIDTH 15.2 % (11.6-16.5); WHITE BLOOD COUNT 12.7 X10^3/uL (3.6-10.0)
[2018-04-27 07:01] LABS: ALBUMIN 3.1 g/dL (3.4-5.0); CALCIUM 8.3 mg/dL (8.5-10.1); CREATININE 6.3 mg/dL (0.55-1.02); TOTAL PROTEIN 7.4 g/dL (6.4-8.2)
[2018-04-27 07:15] LABS: CARBON DIOXIDE 14.3 mmol/L (21-32)
[2018-04-27] MEDS ORDERED: PHARMACY CONSULT - DOSE _____ XX SCH (08:00)
[2018-04-27 08:16] LABS: ABG BASE EXCESS -12.9 mmol/L (-2.0-2.0); ABG HCO3 14.5 mmol/L (22-26); FRACTIONATED INSPIRED OXYGEN 21
[2018-04-27 08:17] LABS: ABG ALLEN TEST P
[2018-04-27] MEDS ORDERED: TYGACIL 50 MG VIAL 100 MG in NS 100 ML IV 100 ML IV ONE (08:49)
[2018-04-27] MEDS ORDERED: NS 1000 ML 1,000 ML IV ONE (08:59)
[2018-04-27] MEDS ORDERED: LEVAQUIN PREMIX IV 500 MG 500 MG/100 ML BAG IV SCH (09:00)
[2018-04-27] MEDS: PROTONIX INJ 40 MG VIAL IVP SCH (09:00)
[2018-04-27] MEDS: LEVAQUIN PREMIX IV 250 MG 250 MG/50 ML BAG IV SCH (09:00)
--- NOTE | 2018-04-27 09:42 | RAD ---
History: Hypotension Study: Portable AP chest Comparison: Yesterday Findings: The heart size remains prominent. The lungs are grossly clear with mild diffuse chronic interstitial change. A right-sided PICC line remains unchanged. No significant bony abnormality is demonstrated. Impression: No acute cardiopulmonary disease demonstrated Reported By:
[2018-04-27] MEDS: EXEMESTANE 25 MG PO SCH (10:08)
[2018-04-27 11:33] LABS: BASOPHILS % (AUTO) 0.4 % (0.2-1.0); EOSINOPHILS # (AUTO) 0.1 x10^3/uL (0.0-0.2); EOSINOPHILS % (AUTO) 0.5 % (0.9-2.9); HEMATOCRIT 28.4 % (36.0-47.0); HEMOGLOBIN 9.5 g/dL (12.0-16.0); LYMPHOCYTES % (AUTO) 16.4 % (21.0-51.0); MEAN CORPUSCULAR HEMOGLOBIN 29.4 pg (27.0-34.0); MEAN CORPUSCULAR HGB CONC 33.2 g/dL (33.0-35.0); MEAN CORPUSCULAR VOLUME 88.4 fL (80.0-100.0); MONOCYTES % (AUTO) 8.5 % (0.0-13.0); NEUTROPHILS # (AUTO) 9.1 x10^3/uL (2.2-4.8); NEUTROPHILS % (AUTO) 74.2 % (42.0-75.0); PLATELET COUNT 184 X10^3/uL (150.0-450.0); RED BLOOD COUNT 3.22 X10^6/uL (3.5-5.4); RED CELL DISTRIBUTION WIDTH 15.3 % (11.6-16.5); WHITE BLOOD COUNT 12.2 X10^3/uL (3.6-10.0)
[2018-04-27 11:42] LABS: ALBUMIN 2.6 g/dL (3.4-5.0); CARBON DIOXIDE 16.9 mmol/L (21-32); COR CA(FOR HYPOALB) 9.1 mg/dL (8.5-10.1); CREATININE 6.22 mg/dL (0.55-1.02); TOTAL PROTEIN 6.5 g/dL (6.4-8.2)
--- NOTE | 2018-04-27 12:08 | CT ---
History: Headache and altered mental status Study: CT head without contrast. Sagittal and coronal reformations were provided. Comparison: July 06, 2016 Findings: The ventricles and sulci are normal in size and configuration. There is no intracranial hemorrhage or mass or edema. There is no subdural collection of fluid. The paranasal sinuses are clear. The calvarium is intact. Impression: No acute intracranial disease Reported By:
[2018-04-27] MEDS: TYLENOL 325 MG TAB PO PRN (12:12)
--- NOTE | 2018-04-27 12:14 | CT ---
HISTORY: Nausea, vomiting, abdominal pain Study: CT abdomen pelvis without contrast Comparison: 02/10/2018 Technique: Axial noncontrast images with coronal and sagittal reformats. Dose reduction procedures were used with mA/kv adjusted for body size. THIS EXAMINATION IS LIMITED DUE TO THE LACK OF INTRAVENOUS AND ORAL CONTRAST. The examination was performed in this manner at the sole discretion of the ordering caregiver and without input requested from or given by Radiology. Findings: The lung bases are free of acute infiltrates. The heart is enlarged. The liver, spleen, adrenal glands, and pancreas are within normal limits to the limitations of an unenhanced examination. The patient is status post cholecystectomy. The kidneys are unobstructed. No right renal calculi are identified. There is a tiny nonobstructing left upper pole renal calculus present. There is a midline periumbilical diastasis recti containing only mesenteric fat. Calcific atherosclerotic change is present in a nondilated abdominal aorta. No intraperitoneal or retroperitoneal lymphadenopathy of significance is identified. There are no findings suggestive of diverticulitis or colitis. There are no findings suggestive of enteritis. There is a large amount of stool within the colon suggestive of constipation. Examination of the pelvis demonstrated no evidence for pelvic masses, pelvic fluid, or pelvic lymphadenopathy. There is a Gonzalez catheter draining the bladder. No lytic or blastic skeletal lesions are identified. IMPRESSION: No acute intra-abdominal or intrapelvic abnormality to the limitations of an examination performed without intravenous and without oral contrast. Tiny nonobstructing left upper pole renal calculus Fat containing diastasis recti Reported By:
[2018-04-27] MEDS ORDERED: FLUVIRIN IM ONE (12:26)
[2018-04-27] MEDS ORDERED: PREVNAR 13 IM ONE (12:26)
[2018-04-27] MEDS: ZOFRAN INJ 4 MG VIAL IVP PRN ×2 (12:30→20:29)
[2018-04-27] MEDS ORDERED: NS 500 ML IV 500 ML IV ONE (13:17)
--- NOTE | 2018-04-27 13:53 | PCM.PROG ---
Progress Note - Progress Note for Day of Date of Exam: 04/27/18 - Subjective Subjective: 63 WF ADMITTED ON 04/26 WITH N/V, SEVERE DEHYDRATION, ACUTE RENAL FAILURE, METABOLIC ACIDOSIS. PT WAS HYPOTENSIVE ON ADMISSION AND BP IMPROVED AFTER NS BOLUS AND CONTINUED TO BE STABLE DURING THE NIGHT, HAD SEVERE HYPOTENSIVE EPISODE WITH SYSTOLIC IN 70'S AND 80'S EARLY DAY SHIFT. PTS BUN/CRE AT SLIGHTLY IMPROVED 81/6.30, CO2 ON CHEM7 14.3. PT STARTED ON LEVOPHED DRIP, TRIATE, STAT ABG, CXR, NS BOLUS AND REPEAT NOON LABS. PT DENIED ANY SOB OR CP. O2 SAT IN 90'S. BP IMPROVED WITH SYSTOLIC 120'S. LEVOPHED PLACED ON HOLD, PT ON LEVAQUIN IV AND TYGACIL, BLOOD CULTURES COLLECTED ON ADMISSION PENDING, SERUM ACETONE ORDERED, REPEAT NOON LABS - Past Medical Family Social History Past Med/Fam/Surg Hx: No changes since H&P Allergies: Allergies penicillin G Allergy (Verified 09/02/17 17:26) sulfamethoxazole [From Bactrim] Allergy (Verified 09/02/17 17:26) trimethoprim [From Bactrim] Allergy (Verified 09/02/17 17:26) - Review of Systems ROS: No change since H&P - Vital Signs and I&O's Vital Signs: Temperature 99.2 F Pulse Rate [Right Brachial] 72 Respiratory Rate 13 Blood Pressure [Right Arm] 116/86 Blood Pressure 132/60 O2 Sat by Pulse Oximetry 97 Intake and Output: Intake & Output 04/25/18 04/26/18 04/27/18 04/28/18 11:59 11:59 11:59 11:59 Intake Total 2660 / 2660 Output Total 1025 / 1025 Balance 1635 / 1635 - Physical Exam Oriented: Normal Eyes: Normal Ear: Normal Nose: Normal Throat: Dry Respiratory: Diminished Cardiovascular: Normal. negative: Edema Auscultation: Bowel Sounds: Normal Tenderness: Epigastric (MILD) Skin: Decreased Turgur Musculoskeletal: Right, Left, Foot, Back:Lumbar, Sensory Deficit Psychiatric: Anxiety, Depression Mood Description: Calm Speech Pattern: Clear, Appropriate - Laboratory and Diagnostics Result Diagrams: 04/27/18 11:25 04/27/18 11:25 Labs: 04/26/18 17:39 Urine,Catheterized Urine Culture - Preliminary Laboratory WBC 12.2 X10^3/uL (3.6-10.0) H 04/27/18 11:25 RBC 3.22 X10^6/uL (3.5-5.4) L 04/27/18 11:25 Hgb 9.5 g/dL (12.0-16.0) L 04/27/18 11:25 Hct 28.4 % (36.0-47.0) L 04/27/18 11:25 MCV 88.4 fL (80.0-100.0) 04/27/18 11:25 MCH 29.4 pg (27.0-34.0) 04/27/18 11:25 MCHC 33.2 g/dL (33.0-35.0) 04/27/18 11:25 RDW 15.3 % (11.6-16.5) 04/27/18 11:25 Plt Count 184 X10^3/uL (150.0-450.0) 04/27/18 11:25 MPV 9.0 fL (7.4-11.0) 04/27/18 11:25 Neut % (Auto) 74.2 % (42.0-75.0) 04/27/18 11:25 Lymph % (Auto) 16.4 % (21.0-51.0) L 04/27/18 11:25 [place] % (Auto) 8.5 % (0.0-13.0) 04/27/18 11:25 Eos % (Auto) 0.5 % (0.9-2.9) L 04/27/18 11:25 Baso % (Auto) 0.4 % (0.2-1.0) 04/27/18 11:25 Neut # (Auto) 9.1 x10^3/uL (2.2-4.8) H 04/27/18 11:25 Lymph # (Auto) 2.0 X10^3/uL (1.3-2.9) 04/27/18 11:25 [place] # (Auto) 1.0 x10^3/uL (0.3-0.8) H 04/27/18 11:25 Eos # (Auto) 0.1 x10^3/uL (0.0-0.2) 04/27/18 11:25 Baso # (Auto) 0.0 X10^3/uL (0.0-0.1) 04/27/18 11:25 Absolute Nucleated RBC 0.0 /100WBC 04/27/18 11:25 Sample Site Rr 04/27/18 07:50 ABG pH 7.190 (7.35-7.45) L* 04/27/18 07:50 ABG pCO2 38.0 mmHg (35.0-45.0) 04/27/18 07:50 ABG pO2 84.0 mmHg (80.0-100.0) 04/27/18 07:50 ABG HCO3 14.5 mmol/L (22-26) L* 04/27/18 07:50 ABG O2 Saturation 93.0 % (90-100) 04/27/18 07:50 ABG Base Excess -12.9 mmol/L (-2.0-2.0) L 04/27/18 07:50 Yoshi Test P 04/27/18 07:50 A-a Gradient 18.0 mmHg 04/27/18 07:50 FiO2 21 04/27/18 07:50 Blood Gas Comments Son well-sd 04/27/18 07:50 Sodium 140 mmol/L (136-145) 04/27/18 11:25 Corrected Sodium 143 mmol/L (136-145) 04/27/18 11:25 Potassium 5.4 mmol/L (3.5-5.1) H 04/27/18 11:25 Chloride 108 mmol/L (98-107) H 04/27/18 11:25 Carbon Dioxide 16.9 mmol/L (21-32) L 04/27/18 11:25 BUN 81 mg/dL (7-18) H 04/27/18 11:25 Creatinine 6.22 mg/dL (0.55-1.02) H 04/27/18 11:25 Est GFR (MDRD) Af Amer 9 (>60) L 04/27/18 11:25 Est GFR (MDRD) Non-Af 7 (>60) L 04/27/18 11:25 Glucose 222 mg/dL (65-99) H 04/27/18 11:25 POC Glucose (mg/dL) 197 mg/dL (65-99) H 04/27/18 12:19 Lactic Acid 0.5 mmol/L (0.4-2.0) 04/27/18 09:06 Calcium 8.0 mg/dL (8.5-10.1) L 04/27/18 11:25 Corrected Calcium 9.1 mg/dL (8.5-10.1) 04/27/18 11:25 Magnesium 2.5 mg/dL (1.7-2.9) 04/26/18 13:35 Total Bilirubin 0.20 mg/dL (0.2-1.0) 04/27/18 11:25 AST 16 Units/L (15-37) 04/27/18 11:25 ALT 19 Units/L (12-78) 04/27/18 11:25 Alkaline Phosphatase 93 Units/L (46-116) 04/27/18 11:25 Total Protein 6.5 g/dL (6.4-8.2) 04/27/18 11:25 Albumin 2.6 g/dL (3.4-5.0) L 04/27/18 11:25 Globulin 3.9 g/dL (2.5-4.5) 04/27/18 11:25 Albumin/Globulin Ratio 0.7 Ratio (1.1-2.1) L 04/27/18 11:25 Specimen Type Catherized urine 04/26/18 17:39 Urine Color Yellow (YELLOW) 04/26/18 17:39 Urine Appearance Cloudy (CLEAR) 04/26/18 17:39 Urine pH 5.0 (5.0 - 8.0) 04/26/18 17:39 Ur Specific [place] 1.015 (1.000-1.030) 04/26/18 17:39 Urine Protein 3+ (NEGATIVE) 04/26/18 17:39 Urine Glucose (UA) 1+ (NEGATIVE) 04/26/18 17:39 Urine Ketones Negative (NEGATIVE) 04/26/18 17:39 Urine Occult Blood 4+ (NEGATIVE) 04/26/18 17:39 Urine Nitrite Negative (NEGATIVE) 04/26/18 17:39 Urine Bilirubin Negative (NEGATIVE) 04/26/18 17:39 Urine Acetone Small (NEGATIVE) H 04/27/18 11:10 Urine Urobilinogen Normal (NORMAL) 04/26/18 17:39 Ur Leukocyte Esterase 3+ (NEGATIVE) 04/26/18 17:39 Urine RBC 10-20 /HPF (NONE SEEN) 04/26/18 17:39 Urine WBC Tntc /HPF (NONE SEEN) 04/26/18 17:39 Ur Squamous Epith Cells Many /HPF (NEGATIVE) 04/26/18 17:39 Amorphous Sediment 1+ /HPF (NEGATIVE) 04/26/18 17:39 Urine Bacteria 2+ /HPF (NEGATIVE) 04/26/18 17:39 Ur Culture Indicated? Yes/culture set up 04/26/18 17:39 Acetone, Semi-Quant Negative (NEGATIVE) 04/27/18 09:06 - Plan (1) Hypotension Status: Acute Plan: ICU, EKG CXR ON ADMISSION AND CONTINUOUS CARDIAC MONITORING AND REPEAT AM CXR. CBC CMP UA LACTIC ACID, ABG, BLOOD CULTURES COLLECTED ON ADMISSION. REPEAT AM LABS LACTIC ACID, SERUM ACETONE, ABG THIS AM. CT HEAD AND ABD W/O,CONTINUOUS CARDIAC AND BP MONITORING. IV HYDRATION, SUPPLEMENTAL O2. AZEVEDO CATH WITH STRICT I&OS. BLOOD SUGAR CONTROL (2) Acute renal failure Status: Acute (3) Nausea & vomiting Status: Acute (4) Dehydration Status: Acute (5) Hypertension Status: Acute (6) Diabetes Status: Acute (7) COPD (chronic obstructive pulmonary disease) with acute bronchitis Status: Acute (8) Anemia Status: Acute
[2018-04-27] MEDS ORDERED: NS 1000 ML 1,000 ML IV SCH (14:00)
[2018-04-27] MEDS ORDERED: LOVENOX INJ 40 MG SYR SC SCH (18:00)
[2018-04-27 18:12] LABS: BASOPHILS # (AUTO) 0.1 X10^3/uL (0.0-0.1); EOSINOPHILS % (AUTO) 0.3 % (0.9-2.9); HEMATOCRIT 28.5 % (36.0-47.0); HEMOGLOBIN 9.6 g/dL (12.0-16.0); LYMPHOCYTES # (AUTO) 1.7 X10^3/uL (1.3-2.9); LYMPHOCYTES % (AUTO) 15.6 % (21.0-51.0); MEAN CORPUSCULAR HEMOGLOBIN 29.6 pg (27.0-34.0); MEAN CORPUSCULAR HGB CONC 33.7 g/dL (33.0-35.0); MEAN CORPUSCULAR VOLUME 87.9 fL (80.0-100.0); MEAN PLATELET VOLUME 8.9 fL (7.4-11.0); MONOCYTES # (AUTO) 0.9 x10^3/uL (0.3-0.8); MONOCYTES % (AUTO) 8.2 % (0.0-13.0); NEUTROPHILS # (AUTO) 8.2 x10^3/uL (2.2-4.8); NEUTROPHILS % (AUTO) 74.9 % (42.0-75.0); PLATELET COUNT 193 X10^3/uL (150.0-450.0); RED BLOOD COUNT 3.25 X10^6/uL (3.5-5.4); RED CELL DISTRIBUTION WIDTH 15.4 % (11.6-16.5)
[2018-04-27] MEDS: TYGACIL 50 MG VIAL 50 MG in NS 100 ML IV 100 ML IV SCH ×2 (18:53→20:31)
[2018-04-27] MEDS ORDERED: LEXAPRO ONE (20:18)
[2018-04-27] MEDS: CRESTOR TAB 10 MG PO SCH (20:29)
[2018-04-27] MEDS: LEXAPRO PO SCH (20:30)
[2018-04-27] MEDS: SNACK - Diabetic Appropriate PO SCH (20:31)
[2018-04-27] MEDS: LOVENOX INJ 30 MG SYR SC SCH (20:31)
[2018-04-27 21:00] LABS: ABG BASE EXCESS -12.5 mmol/L (-2.0-2.0)
[2018-04-27 21:02] LABS: ABG ALLEN TEST POS; ABG HCO3 13.7 mmol/L (22-26)
[2018-04-27 21:25] LABS: ALBUMIN 2.8 g/dL (3.4-5.0); CALCIUM 8.1 mg/dL (8.5-10.1); CARBON DIOXIDE 16.1 mmol/L (21-32); COR CA(FOR HYPOALB) 9.1 mg/dL (8.5-10.1); CREATININE 5.95 mg/dL (0.55-1.02); TOTAL PROTEIN 6.7 g/dL (6.4-8.2)
[2018-04-27] MEDS: NS IV SCH (22:19)
[2018-04-27] MEDS: SODIUM BICARBONATE 8.4% IV SCH (22:19)
[2018-04-28] MEDS: ZOFRAN INJ 4 MG VIAL IVP PRN ×3 (05:50→22:32)
[2018-04-28] MEDS: CEVIMELINE 30 MG PO SCH ×3 (06:18→22:00)
--- NOTE | 2018-04-28 06:19 | RAD ---
History: Shortness of breath Study: AP chest Comparison: Yesterday Findings: The heart size is prominent. The lungs are clear. There is no edema or effusion or congestion demonstrated. A right subclavian line remains in place. Impression: No acute disease Reported By:
[2018-04-28 06:21] LABS: BASOPHILS # (AUTO) 0.1 X10^3/uL (0.0-0.1); BASOPHILS % (AUTO) 0.5 % (0.2-1.0); EOSINOPHILS # (AUTO) 0.1 x10^3/uL (0.0-0.2); EOSINOPHILS % (AUTO) 0.8 % (0.9-2.9); HEMATOCRIT 26.8 % (36.0-47.0); HEMOGLOBIN 9.3 g/dL (12.0-16.0); LYMPHOCYTES # (AUTO) 1.6 X10^3/uL (1.3-2.9); MEAN CORPUSCULAR HEMOGLOBIN 30.2 pg (27.0-34.0); MEAN CORPUSCULAR HGB CONC 34.6 g/dL (33.0-35.0); MEAN CORPUSCULAR VOLUME 87.3 fL (80.0-100.0); MONOCYTES # (AUTO) 0.9 x10^3/uL (0.3-0.8); MONOCYTES % (AUTO) 8.7 % (0.0-13.0); NEUTROPHILS # (AUTO) 7.6 x10^3/uL (2.2-4.8); PLATELET COUNT 174 X10^3/uL (150.0-450.0); RED BLOOD COUNT 3.07 X10^6/uL (3.5-5.4); RED CELL DISTRIBUTION WIDTH 15.2 % (11.6-16.5); WHITE BLOOD COUNT 10.3 X10^3/uL (3.6-10.0)
[2018-04-28] MEDS: HumuLIN R SUBCUT PRN ×3 (06:31→22:26)
[2018-04-28 06:36] LABS: ALBUMIN 2.6 g/dL (3.4-5.0); CALCIUM 8.3 mg/dL (8.5-10.1); COR CA(FOR HYPOALB) 9.4 mg/dL (8.5-10.1); CREATININE 5.81 mg/dL (0.55-1.02); TOTAL PROTEIN 6.6 g/dL (6.4-8.2)
[2018-04-28 06:43] LABS: CARBON DIOXIDE 13.3 mmol/L (21-32)
[2018-04-28] MEDS: PROTONIX INJ 40 MG VIAL IVP SCH (08:08)
[2018-04-28] MEDS: NORCO 10/325 TAB PO PRN ×2 (08:14→18:46)
[2018-04-28] MEDS: TYGACIL 50 MG VIAL 50 MG in NS 100 ML IV 100 ML IV SCH ×2 (09:00→20:51)
[2018-04-28 09:08] LABS: ABG BASE EXCESS -9.3 mmol/L (-2.0-2.0)
[2018-04-28 09:11] LABS: ABG HCO3 15.3 mmol/L (22-26)
[2018-04-28 09:12] LABS: ABG ALLEN TEST P
[2018-04-28] MEDS: NS IV SCH (09:45)
[2018-04-28] MEDS: SODIUM BICARBONATE 8.4% IV SCH (09:45)
[2018-04-28] MEDS ORDERED: NS IV ONE (10:09)
[2018-04-28] MEDS ORDERED: SODIUM BICARBONATE 8.4% IV ONE (10:09)
[2018-04-28] MEDS: EXEMESTANE 25 MG PO SCH ×2 (10:15→13:51)
--- NOTE | 2018-04-28 13:22 | PCM.PROG ---
Progress Note - Progress Note for Day of Date of Exam: 04/28/18 - Subjective Subjective: 63 WF ADMITTED ON 04/26 WITH N/V, SEVERE DEHYDRATION, ACUTE RENAL FAILURE, METABOLIC ACIDOSIS. PT WAS HYPOTENSIVE ON ADMISSION AND BP IMPROVED. URINE AND BLOOD CULTURES COLLECTED ON ADISSION NEGATIVE FOR GROWTH AT THIS TIME. PT CXR W/O ACUTE FINDINGS. PT AWAKE AND ALERT THIS AM, CO MILD NAUSEA NO VOMITING. PT LACTIC ACID 0.5, WBC 10.3, BUN 89, CREAT 5.81, SLIGHTLY IMPROVING. PT HAS AZEVEDO WITH ~4000 OUTPUT LAST 24HRS. PT CURRENTLY HAS IV 1/2NS WITH 3 AMPS NAHCO3 INFUSING. REPEAT AM ABG WITH PH 7.330, HCO3 15.3. PT DENIES ANY CP OR SOB. - Past Medical Family Social History Past Med/Fam/Surg Hx: No changes since H&P Allergies: Allergies penicillin G Allergy (Verified 09/02/17 17:26) sulfamethoxazole [From Bactrim] Allergy (Verified 09/02/17 17:26) trimethoprim [From Bactrim] Allergy (Verified 09/02/17 17:26) - Review of Systems ROS: No change since H&P - Vital Signs and I&O's Vital Signs: Temperature 98.2 F Pulse Rate [Right Brachial] 71 Pulse Rate 77 Respiratory Rate 18 Blood Pressure [Right Arm] 151/65 Blood Pressure 151/67 O2 Sat by Pulse Oximetry 99 Intake and Output: Intake & Output 04/26/18 04/27/18 04/28/18 04/29/18 11:59 11:59 11:59 11:59 Intake Total 2660 / 2660 4500 / 4500 Output Total 1025 / 1025 4300 / 4300 Balance 1635 / 1635 200 / 200 - Physical Exam Oriented: Normal Eyes: Normal Ear: Normal Nose: Normal Throat: Dry Respiratory: Diminished Cardiovascular: Normal. negative: Edema Auscultation: Bowel Sounds: Normal Tenderness: Epigastric (MILD) Skin: Decreased Turgur Musculoskeletal: Right, Left, Foot, Back:Lumbar, Sensory Deficit Psychiatric: Anxiety, Depression Mood Description: Calm Speech Pattern: Clear, Appropriate - Laboratory and Diagnostics Result Diagrams: 04/28/18 05:55 04/28/18 05:55 Labs: 04/26/18 13:53 Blood Blood Culture - Preliminary 04/26/18 13:47 Blood Blood Culture - Preliminary 04/26/18 17:39 Urine,Catheterized Urine Culture - Final Laboratory WBC 10.3 X10^3/uL (3.6-10.0) H 04/28/18 05:55 RBC 3.07 X10^6/uL (3.5-5.4) L 04/28/18 05:55 Hgb 9.3 g/dL (12.0-16.0) L 04/28/18 05:55 Hct 26.8 % (36.0-47.0) L 04/28/18 05:55 MCV 87.3 fL (80.0-100.0) 04/28/18 05:55 MCH 30.2 pg (27.0-34.0) 04/28/18 05:55 MCHC 34.6 g/dL (33.0-35.0) 04/28/18 05:55 RDW 15.2 % (11.6-16.5) 04/28/18 05:55 Plt Count 174 X10^3/uL (150.0-450.0) 04/28/18 05:55 MPV 9.0 fL (7.4-11.0) 04/28/18 05:55 Neut % (Auto) 74.0 % (42.0-75.0) 04/28/18 05:55 Lymph % (Auto) 16.0 % (21.0-51.0) L 04/28/18 05:55 [place] % (Auto) 8.7 % (0.0-13.0) 04/28/18 05:55 Eos % (Auto) 0.8 % (0.9-2.9) L 04/28/18 05:55 Baso % (Auto) 0.5 % (0.2-1.0) 04/28/18 05:55 Neut # (Auto) 7.6 x10^3/uL (2.2-4.8) H 04/28/18 05:55 Lymph # (Auto) 1.6 X10^3/uL (1.3-2.9) 04/28/18 05:55 [place] # (Auto) 0.9 x10^3/uL (0.3-0.8) H 04/28/18 05:55 Eos # (Auto) 0.1 x10^3/uL (0.0-0.2) 04/28/18 05:55 Baso # (Auto) 0.1 X10^3/uL (0.0-0.1) 04/28/18 05:55 Absolute Nucleated RBC 0.0 /100WBC 04/28/18 05:55 Sample Site Rr 04/28/18 08:09 ABG pH 7.330 (7.35-7.45) L 04/28/18 08:09 ABG pCO2 29.0 mmHg (35.0-45.0) L 04/28/18 08:09 ABG pO2 92.0 mmHg (80.0-100.0) 04/28/18 08:09 ABG HCO3 15.3 mmol/L (22-26) L* 04/28/18 08:09 ABG O2 Saturation 97.0 % (90-100) 04/28/18 08:09 ABG Base Excess -9.3 mmol/L (-2.0-2.0) L 04/28/18 08:09 Yoshi Test P 04/28/18 08:09 A-a Gradient 21.0 mmHg 04/28/18 08:09 FiO2 21.0 04/28/18 08:09 Blood Gas Comments Son well-sd 04/28/18 08:09 Sodium 144 mmol/L (136-145) 04/28/18 05:55 Corrected Sodium 146 mmol/L (136-145) H 04/28/18 05:55 Potassium 4.3 mmol/L (3.5-5.1) 04/28/18 05:55 Chloride 110 mmol/L (98-107) H 04/28/18 05:55 Carbon Dioxide 13.3 mmol/L (21-32) L* 04/28/18 05:55 BUN 89 mg/dL (7-18) H 04/28/18 05:55 Creatinine 5.81 mg/dL (0.55-1.02) H 04/28/18 05:55 Est GFR (MDRD) Af Amer 9 (>60) L 04/28/18 05:55 Est GFR (MDRD) Non-Af 8 (>60) L 04/28/18 05:55 Glucose 176 mg/dL (65-99) H 04/28/18 05:55 POC Glucose (mg/dL) 162 mg/dL (65-99) H 04/28/18 11:24 Lactic Acid 0.5 mmol/L (0.4-2.0) 04/28/18 09:30 Calcium 8.3 mg/dL (8.5-10.1) L 04/28/18 05:55 Corrected Calcium 9.4 mg/dL (8.5-10.1) 04/28/18 05:55 Magnesium 2.5 mg/dL (1.7-2.9) 04/26/18 13:35 Total Bilirubin 0.20 mg/dL (0.2-1.0) 04/28/18 05:55 AST 21 Units/L (15-37) 04/28/18 05:55 ALT 19 Units/L (12-78) 04/28/18 05:55 Alkaline Phosphatase 92 Units/L (46-116) 04/28/18 05:55 Total Protein 6.6 g/dL (6.4-8.2) 04/28/18 05:55 Albumin 2.6 g/dL (3.4-5.0) L 04/28/18 05:55 Globulin 4.0 g/dL (2.5-4.5) 04/28/18 05:55 Albumin/Globulin Ratio 0.7 Ratio (1.1-2.1) L 04/28/18 05:55 Specimen Type Catherized urine 04/26/18 17:39 Urine Color Yellow (YELLOW) 04/26/18 17:39 Urine Appearance Cloudy (CLEAR) 04/26/18 17:39 Urine pH 5.0 (5.0 - 8.0) 04/26/18 17:39 Ur Specific [place] 1.015 (1.000-1.030) 04/26/18 17:39 Urine Protein 3+ (NEGATIVE) 04/26/18 17:39 Urine Glucose (UA) 1+ (NEGATIVE) 04/26/18 17:39 Urine Ketones Negative (NEGATIVE) 04/26/18 17:39 Urine Occult Blood 4+ (NEGATIVE) 04/26/18 17:39 Urine Nitrite Negative (NEGATIVE) 04/26/18 17:39 Urine Bilirubin Negative (NEGATIVE) 04/26/18 17:39 Urine Acetone Small (NEGATIVE) H 04/27/18 11:10 Urine Urobilinogen Normal (NORMAL) 04/26/18 17:39 Ur Leukocyte Esterase 3+ (NEGATIVE) 04/26/18 17:39 Urine RBC 10-20 /HPF (NONE SEEN) 04/26/18 17:39 Urine WBC Tntc /HPF (NONE SEEN) 04/26/18 17:39 Ur Squamous Epith Cells Many /HPF (NEGATIVE) 04/26/18 17:39 Amorphous Sediment 1+ /HPF (NEGATIVE) 04/26/18 17:39 Urine Bacteria 2+ /HPF (NEGATIVE) 04/26/18 17:39 Ur Culture Indicated? Yes/culture set up 04/26/18 17:39 Acetone, Semi-Quant Negative (NEGATIVE) 04/27/18 09:06 - Plan (1) Hypotension Status: Acute Plan: CONTINUOUS CARDIAC MONITORING AND REPEAT AM CXR. CBC CMP UA LACTIC ACID, ABG. BLOOD AND URINE CULTURES COLLECTED ON ADMISSION. REPEAT AM LABS LACTIC ACID, SERUM ACETONE, ABG THIS AM. CT HEAD AND ABD W/O ON ADMISSION WITH NO ACUTE FINDINGS,CONTINUOUS BP MONITORING. IV HYDRATION, SUPPLEMENTAL O2. AZEVEDO CATH WITH STRICT I&OS. BLOOD SUGAR CONTROL (2) Acute renal failure Status: Acute (3) Nausea & vomiting Status: Acute (4) Dehydration Status: Acute (5) Hypertension Status: Acute (6) Diabetes Status: Acute (7) COPD (chronic obstructive pulmonary disease) with acute bronchitis Status: Acute (8) Anemia Status: Acute
[2018-04-28] MEDS ORDERED: PREVNAR 13 IM ONE (14:00)
[2018-04-28] MEDS ORDERED: FLUVIRIN IM ONE (14:00)
[2018-04-28 18:48] LABS: CALCIUM 8.4 mg/dL (8.5-10.1); CARBON DIOXIDE 21.1 mmol/L (21-32); CREATININE 5.58 mg/dL (0.55-1.02)
[2018-04-28] MEDS: SNACK - Diabetic Appropriate PO SCH (20:00)
[2018-04-28] MEDS ORDERED: LEXAPRO ONE (20:46)
[2018-04-28] MEDS: CRESTOR TAB 10 MG PO SCH (20:52)
[2018-04-28] MEDS: LEXAPRO PO SCH (20:52)
[2018-04-28] MEDS: LOVENOX INJ 30 MG SYR SC SCH (20:53)
[2018-04-28] MEDS ORDERED: NS 1/2 1000 ML IV 1,000 ML IV ONE (22:10)
[2018-04-28] MEDS ORDERED: SODIUM BICARBONATE 8.4% INJ ADULT ONE (22:10)
[2018-04-29] MEDS: ZOFRAN INJ 4 MG VIAL IVP PRN ×3 (04:50→15:49)
[2018-04-29] MEDS: NORCO 10/325 TAB PO PRN ×3 (05:05→19:27)
[2018-04-29] MEDS: CEVIMELINE 30 MG PO SCH ×3 (05:15→21:23)
[2018-04-29 06:22] LABS: ALBUMIN 2.8 g/dL (3.4-5.0); CALCIUM 8.3 mg/dL (8.5-10.1); CARBON DIOXIDE 23.5 mmol/L (21-32); COR CA(FOR HYPOALB) 9.3 mg/dL (8.5-10.1); CREATININE 5.22 mg/dL (0.55-1.02); TOTAL PROTEIN 6.9 g/dL (6.4-8.2)
[2018-04-29 06:24] LABS: BASOPHILS # (AUTO) 0.1 X10^3/uL (0.0-0.1); BASOPHILS % (AUTO) 0.6 % (0.2-1.0); EOSINOPHILS % (AUTO) 0.3 % (0.9-2.9); HEMATOCRIT 30.3 % (36.0-47.0); HEMOGLOBIN 10.5 g/dL (12.0-16.0); LYMPHOCYTES # (AUTO) 1.4 X10^3/uL (1.3-2.9); LYMPHOCYTES % (AUTO) 11.3 % (21.0-51.0); MEAN CORPUSCULAR HEMOGLOBIN 29.4 pg (27.0-34.0); MEAN CORPUSCULAR HGB CONC 34.7 g/dL (33.0-35.0); MEAN CORPUSCULAR VOLUME 84.9 fL (80.0-100.0); MEAN PLATELET VOLUME 8.9 fL (7.4-11.0); MONOCYTES # (AUTO) 0.9 x10^3/uL (0.3-0.8); MONOCYTES % (AUTO) 7.2 % (0.0-13.0); NEUTROPHILS # (AUTO) 10.3 x10^3/uL (2.2-4.8); NEUTROPHILS % (AUTO) 80.6 % (42.0-75.0); PLATELET COUNT 236 X10^3/uL (150.0-450.0); RED BLOOD COUNT 3.56 X10^6/uL (3.5-5.4); RED CELL DISTRIBUTION WIDTH 15.1 % (11.6-16.5); WHITE BLOOD COUNT 12.8 X10^3/uL (3.6-10.0)
[2018-04-29] MEDS: HumuLIN R SUBCUT PRN ×4 (06:55→21:22)
[2018-04-29] MEDS: TYGACIL 50 MG VIAL 50 MG in NS 100 ML IV 100 ML IV SCH ×2 (09:57→21:17)
[2018-04-29] MEDS: LEVAQUIN PREMIX IV 250 MG 250 MG/50 ML BAG IV SCH (09:57)
[2018-04-29] MEDS: PROTONIX INJ 40 MG VIAL IVP SCH (09:57)
[2018-04-29] MEDS ORDERED: NS 1/2 1000 ML IV 1,000 ML IV SCH (10:00)
[2018-04-29] MEDS: EXEMESTANE 25 MG PO SCH (10:05)
[2018-04-29] MEDS: NS 1/2 1000 ML IV 1,000 ML IV SCH (11:00)
[2018-04-29] MEDS ORDERED: PHENERGAN INJ 25 MG ONE (16:06)
[2018-04-29] MEDS: PHENERGAN INJ 25 MG IVP PRN ×2 (16:11→23:45)
--- NOTE | 2018-04-29 16:22 | RAD ---
Examination: KUB History: Nausea and vomiting Comparison abdomen CT, 04/27/2018 Findings: Normal intestinal gas pattern. Surgical clips right upper quadrant. No definite mass, ascites or visceral enlargement. CT demonstration of small left renal calculus not identified on this study. Impression: No acute findings on KUB. Reported By:
[2018-04-29 17:25] LABS: STOOL FOR WBC NEGATIVE (NEGATIVE)
[2018-04-29] MEDS ORDERED: LEXAPRO ONE (20:33)
[2018-04-29] MEDS: CRESTOR TAB 10 MG PO SCH (21:16)
[2018-04-29] MEDS: SNACK - Diabetic Appropriate PO SCH (21:17)
[2018-04-29] MEDS: LEXAPRO PO SCH (21:18)
[2018-04-29] MEDS: LOVENOX INJ 30 MG SYR SC SCH (21:18)
[2018-04-30] MEDS: NS 1/2 1000 ML IV 1,000 ML IV SCH ×2 (02:36→19:28)
[2018-04-30] MEDS ORDERED: NS 1/2 1000 ML IV 1,000 ML IV ONE ×3 (02:37→19:23)
--- NOTE | 2018-04-30 05:55 | RAD ---
Examination: Portable AP chest History: CHF COPD Comparison 04/28/2018 Findings: Continued normal heart size with no evidence for acute pulmonary, or pleural lesion. The hilar structures are symmetric. No pneumothorax seen. A right subclavian catheter extends to the SVC. Calcification adjacent to the right humeral head is consistent with a focus of peritendinitis. Impression: No interval change or acute cardiopulmonary findings. Reported By:
[2018-04-30] MEDS: CEVIMELINE 30 MG PO SCH ×3 (06:08→21:29)
[2018-04-30] MEDS: ZOFRAN INJ 4 MG VIAL IVP PRN ×3 (06:09→21:35)
[2018-04-30 06:35] LABS: BASOPHILS # (AUTO) 0.1 X10^3/uL (0.0-0.1); BASOPHILS % (AUTO) 0.4 % (0.2-1.0); EOSINOPHILS # (AUTO) 0.1 x10^3/uL (0.0-0.2); EOSINOPHILS % (AUTO) 0.4 % (0.9-2.9); HEMATOCRIT 30.6 % (36.0-47.0); HEMOGLOBIN 10.5 g/dL (12.0-16.0); LYMPHOCYTES # (AUTO) 2.4 X10^3/uL (1.3-2.9); LYMPHOCYTES % (AUTO) 17.1 % (21.0-51.0); MEAN CORPUSCULAR HEMOGLOBIN 29.5 pg (27.0-34.0); MEAN CORPUSCULAR HGB CONC 34.3 g/dL (33.0-35.0); MEAN CORPUSCULAR VOLUME 85.8 fL (80.0-100.0); MEAN PLATELET VOLUME 9.1 fL (7.4-11.0); MONOCYTES # (AUTO) 1.3 x10^3/uL (0.3-0.8); MONOCYTES % (AUTO) 9.3 % (0.0-13.0); NEUTROPHILS # (AUTO) 10.2 x10^3/uL (2.2-4.8); NEUTROPHILS % (AUTO) 72.8 % (42.0-75.0); PLATELET COUNT 253 X10^3/uL (150.0-450.0); RED BLOOD COUNT 3.57 X10^6/uL (3.5-5.4); RED CELL DISTRIBUTION WIDTH 15.1 % (11.6-16.5); WHITE BLOOD COUNT 13.9 X10^3/uL (3.6-10.0)
[2018-04-30 06:40] LABS: ALBUMIN 2.8 g/dL (3.4-5.0); CALCIUM 8.3 mg/dL (8.5-10.1); CARBON DIOXIDE 25.4 mmol/L (21-32); COR CA(FOR HYPOALB) 9.3 mg/dL (8.5-10.1); CREATININE 4.73 mg/dL (0.55-1.02)
[2018-04-30] MEDS: TYGACIL 50 MG VIAL 50 MG in NS 100 ML IV 100 ML IV SCH ×2 (08:17→21:26)
[2018-04-30] MEDS: PROTONIX INJ 40 MG VIAL IVP SCH (08:18)
[2018-04-30] MEDS: NORCO 10/325 TAB PO PRN ×2 (08:23→21:30)
[2018-04-30] MEDS: EXEMESTANE 25 MG PO SCH ×2 (08:26→21:29)
[2018-04-30] MEDS: NS 1/2 1000 ML IV 1,000 ML IV ONE ×2 (09:55→19:28)
[2018-04-30] MEDS: HumuLIN R SUBCUT PRN ×3 (11:17→21:27)
[2018-04-30] MEDS: PHENERGAN INJ 25 MG IVP PRN (11:18)
[2018-04-30] MEDS: SNACK - Diabetic Appropriate PO SCH (20:10)
[2018-04-30] MEDS ORDERED: LEXAPRO ONE (21:22)
[2018-04-30] MEDS: LOVENOX INJ 30 MG SYR SC SCH (21:26)
[2018-04-30] MEDS: LEXAPRO PO SCH (21:26)
[2018-04-30] MEDS: CRESTOR TAB 10 MG PO SCH (21:35)
[2018-05-01] MEDS ORDERED: NS 1/2 1000 ML IV 1,000 ML IV ONE (02:58)
[2018-05-01] MEDS: NS 1/2 1000 ML IV 1,000 ML IV SCH (03:13)
[2018-05-01] MEDS: ZOFRAN INJ 4 MG VIAL IVP PRN ×2 (05:35→13:22)
[2018-05-01] MEDS: CEVIMELINE 30 MG PO SCH ×3 (05:35→21:18)
[2018-05-01 06:23] LABS: BASOPHILS # (AUTO) 0.1 X10^3/uL (0.0-0.1); BASOPHILS % (AUTO) 0.7 % (0.2-1.0); EOSINOPHILS # (AUTO) 0.2 x10^3/uL (0.0-0.2); EOSINOPHILS % (AUTO) 1.4 % (0.9-2.9); HEMATOCRIT 30.8 % (36.0-47.0); HEMOGLOBIN 10.6 g/dL (12.0-16.0); LYMPHOCYTES # (AUTO) 2.3 X10^3/uL (1.3-2.9); LYMPHOCYTES % (AUTO) 17.3 % (21.0-51.0); MEAN CORPUSCULAR HEMOGLOBIN 29.4 pg (27.0-34.0); MEAN CORPUSCULAR HGB CONC 34.3 g/dL (33.0-35.0); MEAN CORPUSCULAR VOLUME 85.6 fL (80.0-100.0); MONOCYTES # (AUTO) 1.2 x10^3/uL (0.3-0.8); MONOCYTES % (AUTO) 8.9 % (0.0-13.0); NEUTROPHILS # (AUTO) 9.4 x10^3/uL (2.2-4.8); NEUTROPHILS % (AUTO) 71.7 % (42.0-75.0); PLATELET COUNT 247 X10^3/uL (150.0-450.0); RED CELL DISTRIBUTION WIDTH 15.4 % (11.6-16.5); WHITE BLOOD COUNT 13.1 X10^3/uL (3.6-10.0)
[2018-05-01 07:14] LABS: ALBUMIN 2.9 g/dL (3.4-5.0); CALCIUM 7.7 mg/dL (8.5-10.1); CARBON DIOXIDE 22.8 mmol/L (21-32); COR CA(FOR HYPOALB) 8.6 mg/dL (8.5-10.1); CREATININE 3.53 mg/dL (0.55-1.02); TOTAL PROTEIN 7.3 g/dL (6.4-8.2)
[2018-05-01] MEDS: EXEMESTANE 25 MG PO SCH ×2 (08:37→21:17)
[2018-05-01] MEDS: PROTONIX INJ 40 MG VIAL IVP SCH (09:24)
[2018-05-01] MEDS: TYGACIL 50 MG VIAL 50 MG in NS 100 ML IV 100 ML IV SCH ×2 (09:25→21:12)
[2018-05-01 09:40] LABS: MAGNESIUM 1.4 mg/dL (1.7-2.9)
[2018-05-01] MEDS ORDERED: NS 1/2 + KCL 20 MEQ/L 1,000 ML IV SCH (10:00)
[2018-05-01] MEDS ORDERED: NS 1/2 1000 ML IV 1,000 ML with POTASSIUM CHLORIDE INJ 40 MEQ VIAL 40 MEQ IV SCH ×2 (10:00)
[2018-05-01] MEDS: PEPCID 20 MG IV PREMIX* 20 MG/50 ML BAG IV SCH ×2 (10:04→21:13)
[2018-05-01] MEDS: COZAAR PO SCH (10:05)
[2018-05-01 10:08] LABS: SERUM ACETONE NEGATIVE (NEGATIVE)
[2018-05-01 10:12] LABS: CKMB % 0.7 % (<4); CREATINE KINASE 239 Units/L (26-192); CREATINE KINASE MB 1.6 ng/mL (0-4.0); TROPONIN I 0.05 ng/mL (0-1.5)
[2018-05-01] MEDS: APRESOLINE INJ 20 MG VIAL IVP PRN (10:22)
[2018-05-01] MEDS: NORCO 10/325 TAB PO PRN (11:07)
[2018-05-01] MEDS: PHENERGAN INJ 25 MG IV PRN ×2 (11:08→17:08)
[2018-05-01] MEDS: ATIVAN TAB 0.5 MG PO PRN (14:55)
[2018-05-01] MEDS: MAGNESIUM SULFATE 1 GRAM/100 mL PREMIX 1 GM/100 ML BAG IV PRN ×4 (15:05→18:25)
--- NOTE | 2018-05-01 16:49 | PCM.PROG ---
Progress Note - Progress Note for Day of Date of Exam: 04/29/18 - Subjective Subjective: 63 WF ADMITTED ON 04/26 WITH N/V, SEVERE DEHYDRATION, ACUTE RENAL FAILURE, METABOLIC ACIDOSIS. PT WAS HYPOTENSIVE ON ADMISSION AND BP IMPROVED. URINE AND BLOOD CULTURES COLLECTED ON ADISSION NEGATIVE FOR GROWTH AT THIS TIME. PT CXR W/O ACUTE FINDINGS. PT AWAKE AND ALERT THIS AM, CO MILD NAUSEA VOMITING THIS AM. ACETONE AND KUB ORDRED WITH NPO EXCEPT ICE CHIPS. WBC 12.8, BUN 87, CREAT 5.22, SLIGHTLY IMPROVING. CO2 NORMAL THIS AM, D/C BICARB IN IV FLUIDS. CONTINUE GENTLE IV HYDRATION 1/2 NS, STRICT I & OS, NAUSEA CONTROL - Past Medical Family Social History Past Med/Fam/Surg Hx: No changes since H&P Allergies: Allergies penicillin G Allergy (Verified 09/02/17 17:26) sulfamethoxazole [From Bactrim] Allergy (Verified 09/02/17 17:26) trimethoprim [From Bactrim] Allergy (Verified 09/02/17 17:26) - Review of Systems ROS: No change since H&P - Vital Signs and I&O's Vital Signs: Temperature 98.0 F Pulse Rate [Right Brachial] 65 Pulse Rate 72 Respiratory Rate 14 Blood Pressure [Right Arm] 191/81 Blood Pressure 190/128 O2 Sat by Pulse Oximetry 100 Intake and Output: Intake & Output 04/29/18 04/30/18 05/01/18 05/02/18 11:59 11:59 11:59 11:59 Intake Total 3816 / 3816 3067 / 3067 4393 / 4393 1253 / 1253 Output Total 4200 / 4200 4600 / 4600 5400 / 5400 1800 / 1800 Balance -384 / -384 -1533 / -1533 -1007 / -1007 -547 / -547 - Physical Exam Oriented: Normal Eyes: Normal Ear: Normal Nose: Normal Throat: Dry Respiratory: Diminished Cardiovascular: Normal. negative: Edema Auscultation: Bowel Sounds: Normal Tenderness: Epigastric (MILD) Skin: Decreased Turgur Musculoskeletal: Right, Left, Foot, Back:Lumbar, Sensory Deficit Psychiatric: Anxiety, Depression Mood Description: Calm Speech Pattern: Clear, Appropriate - Laboratory and Diagnostics Result Diagrams: 05/01/18 05:38 05/01/18 14:59 Labs: 04/29/18 15:35 Stool Stool Culture - Preliminary 04/29/18 15:35 Stool - Final 04/27/18 08:21 Blood Blood Culture - Preliminary 04/27/18 08:10 Blood Blood Culture - Preliminary 04/26/18 13:53 Blood Blood Culture - Preliminary 04/26/18 13:47 Blood Blood Culture - Preliminary 04/26/18 17:39 Urine,Catheterized Urine Culture - Final Laboratory WBC 13.1 X10^3/uL (3.6-10.0) H 05/01/18 05:38 RBC 3.60 X10^6/uL (3.5-5.4) 05/01/18 05:38 Hgb 10.6 g/dL (12.0-16.0) L 05/01/18 05:38 Hct 30.8 % (36.0-47.0) L 05/01/18 05:38 MCV 85.6 fL (80.0-100.0) 05/01/18 05:38 MCH 29.4 pg (27.0-34.0) 05/01/18 05:38 MCHC 34.3 g/dL (33.0-35.0) 05/01/18 05:38 RDW 15.4 % (11.6-16.5) 05/01/18 05:38 Plt Count 247 X10^3/uL (150.0-450.0) 05/01/18 05:38 MPV 9.0 fL (7.4-11.0) 05/01/18 05:38 Neut % (Auto) 71.7 % (42.0-75.0) 05/01/18 05:38 Lymph % (Auto) 17.3 % (21.0-51.0) L 05/01/18 05:38 [place] % (Auto) 8.9 % (0.0-13.0) 05/01/18 05:38 Eos % (Auto) 1.4 % (0.9-2.9) 05/01/18 05:38 Baso % (Auto) 0.7 % (0.2-1.0) 05/01/18 05:38 Neut # (Auto) 9.4 x10^3/uL (2.2-4.8) H 05/01/18 05:38 Lymph # (Auto) 2.3 X10^3/uL (1.3-2.9) 05/01/18 05:38 [place] # (Auto) 1.2 x10^3/uL (0.3-0.8) H 05/01/18 05:38 Eos # (Auto) 0.2 x10^3/uL (0.0-0.2) 05/01/18 05:38 Baso # (Auto) 0.1 X10^3/uL (0.0-0.1) 05/01/18 05:38 Absolute Nucleated RBC 0.0 /100WBC 05/01/18 05:38 Sample Site Rr 04/28/18 08:09 ABG pH 7.330 (7.35-7.45) L 04/28/18 08:09 ABG pCO2 29.0 mmHg (35.0-45.0) L 04/28/18 08:09 ABG pO2 92.0 mmHg (80.0-100.0) 04/28/18 08:09 ABG HCO3 15.3 mmol/L (22-26) L* 04/28/18 08:09 ABG O2 Saturation 97.0 % (90-100) 04/28/18 08:09 ABG Base Excess -9.3 mmol/L (-2.0-2.0) L 04/28/18 08:09 Yoshi Test P 04/28/18 08:09 A-a Gradient 21.0 mmHg 04/28/18 08:09 FiO2 21.0 04/28/18 08:09 Blood Gas Comments Son well-sd 04/28/18 08:09 Sodium 144 mmol/L (136-145) 05/01/18 06:48 Corrected Sodium 145 mmol/L (136-145) 05/01/18 06:48 Potassium 2.9 mmol/L (3.5-5.1) L* 05/01/18 14:59 Chloride 105 mmol/L (98-107) 05/01/18 06:48 Carbon Dioxide 22.8 mmol/L (21-32) 05/01/18 06:48 BUN 64 mg/dL (7-18) H 05/01/18 06:48 Creatinine 3.53 mg/dL (0.55-1.02) H 05/01/18 06:48 Est GFR (MDRD) Af Amer 17 (>60) L 05/01/18 06:48 Est GFR (MDRD) Non-Af 14 (>60) L 05/01/18 06:48 Glucose 130 mg/dL (65-99) H 05/01/18 06:48 POC Glucose (mg/dL) 120 mg/dL (65-99) H 05/01/18 16:32 Lactic Acid 0.5 mmol/L (0.4-2.0) 04/28/18 09:30 Calcium 7.7 mg/dL (8.5-10.1) L 05/01/18 06:48 Corrected Calcium 8.6 mg/dL (8.5-10.1) 05/01/18 06:48 Magnesium 1.4 mg/dL (1.7-2.9) L 05/01/18 14:59 Total Bilirubin 0.40 mg/dL (0.2-1.0) 05/01/18 06:48 AST 34 Units/L (15-37) 05/01/18 06:48 ALT 19 Units/L (12-78) 05/01/18 06:48 Alkaline Phosphatase 116 Units/L (46-116) 05/01/18 06:48 Creatine Kinase 239 Units/L (26-192) H 05/01/18 09:43 CK-MB (CK-2) 1.6 ng/mL (0-4.0) 05/01/18 09:43 CK/CKMB % Calc 0.7 % (<4) 05/01/18 09:43 Troponin I 0.05 ng/mL (0-1.5) 05/01/18 09:43 Total Protein 7.3 g/dL (6.4-8.2) 05/01/18 06:48 Albumin 2.9 g/dL (3.4-5.0) L 05/01/18 06:48 Globulin 4.4 g/dL (2.5-4.5) 05/01/18 06:48 Albumin/Globulin Ratio 0.7 Ratio (1.1-2.1) L 05/01/18 06:48 Amylase 71 Units/L (25-115) 05/01/18 06:48 Lipase 620 Units/L (73-393) H 05/01/18 06:48 Specimen Type Catherized urine 04/26/18 17:39 Urine Color Yellow (YELLOW) 04/26/18 17:39 Urine Appearance Cloudy (CLEAR) 04/26/18 17:39 Urine pH 5.0 (5.0 - 8.0) 04/26/18 17:39 Ur Specific [place] 1.015 (1.000-1.030) 04/26/18 17:39 Urine Protein 3+ (NEGATIVE) 04/26/18 17:39 Urine Glucose (UA) 1+ (NEGATIVE) 04/26/18 17:39 Urine Ketones Negative (NEGATIVE) 04/26/18 17:39 Urine Occult Blood 4+ (NEGATIVE) 04/26/18 17:39 Urine Nitrite Negative (NEGATIVE) 04/26/18 17:39 Urine Bilirubin Negative (NEGATIVE) 04/26/18 17:39 Urine Acetone Small (NEGATIVE) H 04/27/18 11:10 Urine Urobilinogen Normal (NORMAL) 04/26/18 17:39 Ur Leukocyte Esterase 3+ (NEGATIVE) 04/26/18 17:39 Urine RBC 10-20 /HPF (NONE SEEN) 04/26/18 17:39 Urine WBC Tntc /HPF (NONE SEEN) 04/26/18 17:39 Ur Squamous Epith Cells Many /HPF (NEGATIVE) 04/26/18 17:39 Amorphous Sediment 1+ /HPF (NEGATIVE) 04/26/18 17:39 Urine Bacteria 2+ /HPF (NEGATIVE) 04/26/18 17:39 Ur Culture Indicated? Yes/culture set up 04/26/18 17:39 Stool Description 90 grs brown soft 04/29/18 15:35 Stl Occult Blood (IFOB) Negative (NEGATIVE) 04/29/18 15:35 Stool for White Cells Negative (NEGATIVE) 04/29/18 15:35 Stl C. diff Tox B Gene Negative (NEGATIVE) 04/29/18 16:10 Stl C. diff [id number] Negative (NEGATIVE) 04/29/18 16:10 Acetone, Semi-Quant Negative (NEGATIVE) 05/01/18 09:43 - Plan (1) Acute renal failure Status: Acute Plan: CONTINUOUS CARDIAC MONITORING AND REPEAT AM CXR. CBC CMP UA LACTIC ACID, ABG. BLOOD AND URINE CULTURES COLLECTED ON ADMISSION. KUB AND SERUM ACETONE THIS AM, NPO EXCEPT ICE CHIPS. CT HEAD AND ABD W/O ON ADMISSION WITH NO ACUTE FINDINGS,CONTINUOUS BP MONITORING. IV HYDRATION, SUPPLEMENTAL O2. AZEVEDO CATH WITH STRICT I&OS. BLOOD SUGAR CONTROL (2) Hypotension Status: Resolved (3) Nausea & vomiting Status: Acute (4) Dehydration Status: Acute (5) Hypertension Status: Chronic (6) Diabetes Status: Chronic (7) COPD (chronic obstructive pulmonary disease) with acute bronchitis Status: Chronic (8) Anemia Status: Inactive
--- NOTE | 2018-05-01 16:54 | PCM.PROG ---
Progress Note - Progress Note for Day of Date of Exam: 05/01/18 - Subjective Subjective: 63 WF ADMITTED ON 04/26 WITH N/V, SEVERE DEHYDRATION, ACUTE RENAL FAILURE, METABOLIC ACIDOSIS. PT WAS HYPOTENSIVE ON ADMISSION AND BP IMPROVED. URINE AND BLOOD CULTURES COLLECTED ON ADISSION NEGATIVE FOR GROWTH AT THIS TIME. PT CXR W/O ACUTE FINDINGS. PT AWAKE AND ALERT THIS AM, CO MILD NAUSEA VOMITING THIS AM. ACETONE AND KUB ON TUESDAY WITHOUT ACUTE FINDINGS, CONTINUE WITH NPO EXCEPT ICE CHIPS. WBC 13.1, BUN 64, CREAT 3.53, SLIGHTLY IMPROVING. K + 2.5, POTASSIUM REPLACEMENT VIA IV, AMYLASE AND LIPASE THIS AM. STRICT I & OS, NAUSEA CONTROL - Past Medical Family Social History Past Med/Fam/Surg Hx: No changes since H&P Allergies: Allergies penicillin G Allergy (Verified 09/02/17 17:26) sulfamethoxazole [From Bactrim] Allergy (Verified 09/02/17 17:26) trimethoprim [From Bactrim] Allergy (Verified 09/02/17 17:26) - Review of Systems ROS: No change since H&P - Vital Signs and I&O's Vital Signs: Temperature 98.0 F Pulse Rate [Right Brachial] 65 Pulse Rate 72 Respiratory Rate 14 Blood Pressure [Right Arm] 191/81 Blood Pressure 190/128 O2 Sat by Pulse Oximetry 100 Intake and Output: Intake & Output 04/29/18 04/30/18 05/01/18 05/02/18 11:59 11:59 11:59 11:59 Intake Total 3816 / 3816 3067 / 3067 4393 / 4393 1253 / 1253 Output Total 4200 / 4200 4600 / 4600 5400 / 5400 1800 / 1800 Balance -384 / -384 -1533 / -1533 -1007 / -1007 -547 / -547 - Physical Exam Oriented: Normal Eyes: Normal Ear: Normal Nose: Normal Throat: Dry Respiratory: Diminished Cardiovascular: Normal. negative: Edema Auscultation: Bowel Sounds: Normal Tenderness: Epigastric (MILD) Skin: Decreased Turgur Musculoskeletal: Right, Left, Foot, Back:Lumbar, Sensory Deficit Psychiatric: Anxiety, Depression Mood Description: Calm Speech Pattern: Clear, Appropriate - Laboratory and Diagnostics Result Diagrams: 05/01/18 05:38 05/01/18 14:59 Labs: 04/29/18 15:35 Stool Stool Culture - Preliminary 04/29/18 15:35 Stool - Final 04/27/18 08:21 Blood Blood Culture - Preliminary 04/27/18 08:10 Blood Blood Culture - Preliminary 04/26/18 13:53 Blood Blood Culture - Preliminary 04/26/18 13:47 Blood Blood Culture - Preliminary 04/26/18 17:39 Urine,Catheterized Urine Culture - Final Laboratory WBC 13.1 X10^3/uL (3.6-10.0) H 05/01/18 05:38 RBC 3.60 X10^6/uL (3.5-5.4) 05/01/18 05:38 Hgb 10.6 g/dL (12.0-16.0) L 05/01/18 05:38 Hct 30.8 % (36.0-47.0) L 05/01/18 05:38 MCV 85.6 fL (80.0-100.0) 05/01/18 05:38 MCH 29.4 pg (27.0-34.0) 05/01/18 05:38 MCHC 34.3 g/dL (33.0-35.0) 05/01/18 05:38 RDW 15.4 % (11.6-16.5) 05/01/18 05:38 Plt Count 247 X10^3/uL (150.0-450.0) 05/01/18 05:38 MPV 9.0 fL (7.4-11.0) 05/01/18 05:38 Neut % (Auto) 71.7 % (42.0-75.0) 05/01/18 05:38 Lymph % (Auto) 17.3 % (21.0-51.0) L 05/01/18 05:38 [place] % (Auto) 8.9 % (0.0-13.0) 05/01/18 05:38 Eos % (Auto) 1.4 % (0.9-2.9) 05/01/18 05:38 Baso % (Auto) 0.7 % (0.2-1.0) 05/01/18 05:38 Neut # (Auto) 9.4 x10^3/uL (2.2-4.8) H 05/01/18 05:38 Lymph # (Auto) 2.3 X10^3/uL (1.3-2.9) 05/01/18 05:38 [place] # (Auto) 1.2 x10^3/uL (0.3-0.8) H 05/01/18 05:38 Eos # (Auto) 0.2 x10^3/uL (0.0-0.2) 05/01/18 05:38 Baso # (Auto) 0.1 X10^3/uL (0.0-0.1) 05/01/18 05:38 Absolute Nucleated RBC 0.0 /100WBC 05/01/18 05:38 Sample Site Rr 04/28/18 08:09 ABG pH 7.330 (7.35-7.45) L 04/28/18 08:09 ABG pCO2 29.0 mmHg (35.0-45.0) L 04/28/18 08:09 ABG pO2 92.0 mmHg (80.0-100.0) 04/28/18 08:09 ABG HCO3 15.3 mmol/L (22-26) L* 04/28/18 08:09 ABG O2 Saturation 97.0 % (90-100) 04/28/18 08:09 ABG Base Excess -9.3 mmol/L (-2.0-2.0) L 04/28/18 08:09 Yoshi Test P 04/28/18 08:09 A-a Gradient 21.0 mmHg 04/28/18 08:09 FiO2 21.0 04/28/18 08:09 Blood Gas Comments Son well-sd 04/28/18 08:09 Sodium 144 mmol/L (136-145) 05/01/18 06:48 Corrected Sodium 145 mmol/L (136-145) 05/01/18 06:48 Potassium 2.9 mmol/L (3.5-5.1) L* 05/01/18 14:59 Chloride 105 mmol/L (98-107) 05/01/18 06:48 Carbon Dioxide 22.8 mmol/L (21-32) 05/01/18 06:48 BUN 64 mg/dL (7-18) H 05/01/18 06:48 Creatinine 3.53 mg/dL (0.55-1.02) H 05/01/18 06:48 Est GFR (MDRD) Af Amer 17 (>60) L 05/01/18 06:48 Est GFR (MDRD) Non-Af 14 (>60) L 05/01/18 06:48 Glucose 130 mg/dL (65-99) H 05/01/18 06:48 POC Glucose (mg/dL) 120 mg/dL (65-99) H 05/01/18 16:32 Lactic Acid 0.5 mmol/L (0.4-2.0) 04/28/18 09:30 Calcium 7.7 mg/dL (8.5-10.1) L 05/01/18 06:48 Corrected Calcium 8.6 mg/dL (8.5-10.1) 05/01/18 06:48 Magnesium 1.4 mg/dL (1.7-2.9) L 05/01/18 14:59 Total Bilirubin 0.40 mg/dL (0.2-1.0) 05/01/18 06:48 AST 34 Units/L (15-37) 05/01/18 06:48 ALT 19 Units/L (12-78) 05/01/18 06:48 Alkaline Phosphatase 116 Units/L (46-116) 05/01/18 06:48 Creatine Kinase 239 Units/L (26-192) H 05/01/18 09:43 CK-MB (CK-2) 1.6 ng/mL (0-4.0) 05/01/18 09:43 CK/CKMB % Calc 0.7 % (<4) 05/01/18 09:43 Troponin I 0.05 ng/mL (0-1.5) 05/01/18 09:43 Total Protein 7.3 g/dL (6.4-8.2) 05/01/18 06:48 Albumin 2.9 g/dL (3.4-5.0) L 05/01/18 06:48 Globulin 4.4 g/dL (2.5-4.5) 05/01/18 06:48 Albumin/Globulin Ratio 0.7 Ratio (1.1-2.1) L 05/01/18 06:48 Amylase 71 Units/L (25-115) 05/01/18 06:48 Lipase 620 Units/L (73-393) H 05/01/18 06:48 Specimen Type Catherized urine 04/26/18 17:39 Urine Color Yellow (YELLOW) 04/26/18 17:39 Urine Appearance Cloudy (CLEAR) 04/26/18 17:39 Urine pH 5.0 (5.0 - 8.0) 04/26/18 17:39 Ur Specific [place] 1.015 (1.000-1.030) 04/26/18 17:39 Urine Protein 3+ (NEGATIVE) 04/26/18 17:39 Urine Glucose (UA) 1+ (NEGATIVE) 04/26/18 17:39 Urine Ketones Negative (NEGATIVE) 04/26/18 17:39 Urine Occult Blood 4+ (NEGATIVE) 04/26/18 17:39 Urine Nitrite Negative (NEGATIVE) 04/26/18 17:39 Urine Bilirubin Negative (NEGATIVE) 04/26/18 17:39 Urine Acetone Small (NEGATIVE) H 04/27/18 11:10 Urine Urobilinogen Normal (NORMAL) 04/26/18 17:39 Ur Leukocyte Esterase 3+ (NEGATIVE) 04/26/18 17:39 Urine RBC 10-20 /HPF (NONE SEEN) 04/26/18 17:39 Urine WBC Tntc /HPF (NONE SEEN) 04/26/18 17:39 Ur Squamous Epith Cells Many /HPF (NEGATIVE) 04/26/18 17:39 Amorphous Sediment 1+ /HPF (NEGATIVE) 04/26/18 17:39 Urine Bacteria 2+ /HPF (NEGATIVE) 04/26/18 17:39 Ur Culture Indicated? Yes/culture set up 04/26/18 17:39 Stool Description 90 grs brown soft 04/29/18 15:35 Stl Occult Blood (IFOB) Negative (NEGATIVE) 04/29/18 15:35 Stool for White Cells Negative (NEGATIVE) 04/29/18 15:35 Stl C. diff Tox B Gene Negative (NEGATIVE) 04/29/18 16:10 Stl C. diff [id number] Negative (NEGATIVE) 04/29/18 16:10 Acetone, Semi-Quant Negative (NEGATIVE) 05/01/18 09:43 - Plan (1) Acute renal failure Status: Acute Plan: CONTINUOUS CARDIAC MONITORING AND REPEAT AM CXR. CBC CMP UA LACTIC ACID, ABG. BLOOD AND URINE CULTURES COLLECTED ON ADMISSION. KUB AND SERUM ACETONE THIS AM, NPO EXCEPT ICE CHIPS. CT HEAD AND ABD W/O ON ADMISSION WITH NO ACUTE FINDINGS,CONTINUOUS BP MONITORING. IV HYDRATION, SUPPLEMENTAL O2. AZEVEDO CATH WITH STRICT I&OS. BLOOD SUGAR CONTROL (2) Hypokalemia Status: Acute Plan: 1/2NS 40KCL WITH REPEAT AM CMP, NPO (3) Hypotension Status: Resolved Plan: CONTINUOUS CARDIAC MONITORING AND REPEAT AM CXR. CBC CMP UA LACTIC ACID, ABG. BLOOD AND URINE CULTURES COLLECTED ON ADMISSION. REPEAT AM LABS LACTIC ACID, SERUM ACETONE, ABG THIS AM. CT HEAD AND ABD W/O ON ADMISSION WITH NO ACUTE FINDINGS,CONTINUOUS BP MONITORING. IV HYDRATION, SUPPLEMENTAL O2. AZEVEDO CATH WITH STRICT I&OS. BLOOD SUGAR CONTROL (4) Nausea & vomiting Status: Acute (5) Dehydration Status: Acute (6) Hypertension Status: Chronic (7) Diabetes Status: Chronic (8) COPD (chronic obstructive pulmonary disease) with acute bronchitis Status: Chronic (9) Anemia Status: Inactive
[2018-05-01] MEDS: NS 1/2 + KCL 20 MEQ/L 1,000 ML IV SCH (18:25)
[2018-05-01] MEDS: SNACK - Diabetic Appropriate PO SCH (20:15)
[2018-05-01] MEDS ORDERED: LEXAPRO ONE (20:37)
[2018-05-01] MEDS: LOVENOX INJ 30 MG SYR SC SCH (21:13)
[2018-05-01] MEDS: CRESTOR TAB 10 MG PO SCH (21:14)
[2018-05-01] MEDS: LEXAPRO PO SCH (21:15)
[2018-05-01] MEDS: HumuLIN R SUBCUT PRN (21:16)
[2018-05-02] MEDS: PHENERGAN INJ 25 MG IV PRN ×2 (01:23→15:25)
[2018-05-02] MEDS: APRESOLINE INJ 20 MG VIAL IVP PRN ×2 (03:25→23:11)
[2018-05-02] MEDS: NS 1/2 + KCL 20 MEQ/L 1,000 ML IV SCH ×3 (03:30→21:47)
[2018-05-02] MEDS: NORCO 10/325 TAB PO PRN ×4 (03:50→23:11)
[2018-05-02] MEDS: HumuLIN R SUBCUT PRN ×2 (05:35→21:05)
[2018-05-02] MEDS: CEVIMELINE 30 MG PO SCH ×3 (05:51→21:50)
[2018-05-02 06:42] LABS: ALBUMIN 2.7 g/dL (3.4-5.0); CALCIUM 7.8 mg/dL (8.5-10.1); COR CA(FOR HYPOALB) 8.8 mg/dL (8.5-10.1); CREATININE 2.87 mg/dL (0.55-1.02); MAGNESIUM 2.2 mg/dL (1.7-2.9); TOTAL PROTEIN 6.7 g/dL (6.4-8.2)
[2018-05-02 06:47] LABS: BASOPHILS # (AUTO) 0.1 X10^3/uL (0.0-0.1); BASOPHILS % (AUTO) 0.6 % (0.2-1.0); EOSINOPHILS # (AUTO) 0.3 x10^3/uL (0.0-0.2); EOSINOPHILS % (AUTO) 2.2 % (0.9-2.9); HEMOGLOBIN 10.1 g/dL (12.0-16.0); LYMPHOCYTES # (AUTO) 1.7 X10^3/uL (1.3-2.9); LYMPHOCYTES % (AUTO) 12.8 % (21.0-51.0); MEAN CORPUSCULAR HEMOGLOBIN 29.6 pg (27.0-34.0); MEAN CORPUSCULAR HGB CONC 34.8 g/dL (33.0-35.0); MEAN CORPUSCULAR VOLUME 85.1 fL (80.0-100.0); MEAN PLATELET VOLUME 8.6 fL (7.4-11.0); MONOCYTES # (AUTO) 1.4 x10^3/uL (0.3-0.8); MONOCYTES % (AUTO) 10.1 % (0.0-13.0); NEUTROPHILS % (AUTO) 74.3 % (42.0-75.0); PLATELET COUNT 246 X10^3/uL (150.0-450.0); WHITE BLOOD COUNT 13.4 X10^3/uL (3.6-10.0)
[2018-05-02] MEDS: TYGACIL 50 MG VIAL 50 MG in NS 100 ML IV 100 ML IV SCH ×2 (08:23→21:00)
[2018-05-02] MEDS: ATIVAN TAB 0.5 MG PO PRN (08:23)
[2018-05-02] MEDS: COZAAR PO SCH (08:23)
[2018-05-02] MEDS: PEPCID 20 MG IV PREMIX* 20 MG/50 ML BAG IV SCH ×2 (08:23→21:00)
[2018-05-02 09:26] LABS: AMYLASE 67 Units/L (25-115); LIPASE 762 Units/L (73-393)
[2018-05-02] MEDS: ZOFRAN INJ 4 MG VIAL IVP PRN ×2 (11:00→17:51)
--- NOTE | 2018-05-02 13:33 | PCM.PROG ---
Progress Note - Progress Note for Day of Date of Exam: 05/02/18 - Subjective Subjective: 63 WF ADMITTED ON 04/26 WITH N/V, SEVERE DEHYDRATION, ACUTE RENAL FAILURE, METABOLIC ACIDOSIS. ACIDOSIS RESOLVED, CONTINUES WITH SLGHT IMPROVEMENT IN RENAL FUNCTION, BUN 55, CREAT 2.87. PT REPORTS IMPROVING NAUSEA THIS AM, PT CURRENTLY NPO. PT REPEAT AMLYLASE 67, LIPASE 762, PT ASKING FOR LIQUIDS THIS AM, WILL CONTINUE NPO EXCEPT ICE CHIPS DUE TO PANCREATITIS, REPEAT AM LABS, POTASSIUM REPLACEMENT CONTINUED WITH K +3.0. PT FAMILY AT BEDSIDE, PT REPORTS LEG CRAMPS IMPROVING, FEELING MUCH BETTER. - Past Medical Family Social History Past Med/Fam/Surg Hx: No changes since H&P Allergies: Allergies penicillin G Allergy (Verified 09/02/17 17:26) sulfamethoxazole [From Bactrim] Allergy (Verified 09/02/17 17:26) trimethoprim [From Bactrim] Allergy (Verified 09/02/17 17:26) - Review of Systems ROS: No change since H&P - Vital Signs and I&O's Vital Signs: Temperature 98.3 F Pulse Rate [Right Brachial] 67 Pulse Rate 65 Respiratory Rate 14 Blood Pressure [Right Arm] 167/70 Blood Pressure 140/73 O2 Sat by Pulse Oximetry 100 Intake and Output: Intake & Output 04/30/18 05/01/18 05/02/18 05/03/18 11:59 11:59 11:59 11:59 Intake Total 3067 / 3067 4393 / 4393 4008 / 4008 Output Total 4600 / 4600 5400 / 5400 4300 / 4300 Balance -1533 / -1533 -1007 / -1007 -292 / -292 - Physical Exam Oriented: Normal Eyes: Normal Ear: Normal Nose: Normal Throat: Dry Respiratory: Diminished Cardiovascular: Normal. negative: Edema Auscultation: Bowel Sounds: Normal Tenderness: Epigastric (MILD) Skin: Decreased Turgur Musculoskeletal: Right, Left, Foot, Back:Lumbar, Sensory Deficit Psychiatric: Anxiety, Depression Mood Description: Calm Speech Pattern: Clear, Appropriate - Laboratory and Diagnostics Result Diagrams: 05/02/18 05:49 05/02/18 05:49 Labs: 04/27/18 08:21 Blood Blood Culture - Final 04/27/18 08:10 Blood Blood Culture - Final 04/29/18 15:35 Stool Stool Culture - Final 04/29/18 15:35 Stool - Final 04/26/18 13:53 Blood Blood Culture - Final 04/26/18 13:47 Blood Blood Culture - Final 04/26/18 17:39 Urine,Catheterized Urine Culture - Final Laboratory WBC 13.4 X10^3/uL (3.6-10.0) H 05/02/18 05:49 RBC 3.40 X10^6/uL (3.5-5.4) L 05/02/18 05:49 Hgb 10.1 g/dL (12.0-16.0) L 05/02/18 05:49 Hct 29.0 % (36.0-47.0) L 05/02/18 05:49 MCV 85.1 fL (80.0-100.0) 05/02/18 05:49 MCH 29.6 pg (27.0-34.0) 05/02/18 05:49 MCHC 34.8 g/dL (33.0-35.0) 05/02/18 05:49 RDW 15.0 % (11.6-16.5) 05/02/18 05:49 Plt Count 246 X10^3/uL (150.0-450.0) 05/02/18 05:49 MPV 8.6 fL (7.4-11.0) 05/02/18 05:49 Neut % (Auto) 74.3 % (42.0-75.0) 05/02/18 05:49 Lymph % (Auto) 12.8 % (21.0-51.0) L 05/02/18 05:49 [place] % (Auto) 10.1 % (0.0-13.0) 05/02/18 05:49 Eos % (Auto) 2.2 % (0.9-2.9) 05/02/18 05:49 Baso % (Auto) 0.6 % (0.2-1.0) 05/02/18 05:49 Neut # (Auto) 10.0 x10^3/uL (2.2-4.8) H 05/02/18 05:49 Lymph # (Auto) 1.7 X10^3/uL (1.3-2.9) 05/02/18 05:49 [place] # (Auto) 1.4 x10^3/uL (0.3-0.8) H 05/02/18 05:49 Eos # (Auto) 0.3 x10^3/uL (0.0-0.2) H 05/02/18 05:49 Baso # (Auto) 0.1 X10^3/uL (0.0-0.1) 05/02/18 05:49 Absolute Nucleated RBC 0.0 /100WBC 05/02/18 05:49 Sample Site Rr 04/28/18 08:09 ABG pH 7.330 (7.35-7.45) L 04/28/18 08:09 ABG pCO2 29.0 mmHg (35.0-45.0) L 04/28/18 08:09 ABG pO2 92.0 mmHg (80.0-100.0) 04/28/18 08:09 ABG HCO3 15.3 mmol/L (22-26) L* 04/28/18 08:09 ABG O2 Saturation 97.0 % (90-100) 04/28/18 08:09 ABG Base Excess -9.3 mmol/L (-2.0-2.0) L 04/28/18 08:09 Yoshi Test P 04/28/18 08:09 A-a Gradient 21.0 mmHg 04/28/18 08:09 FiO2 21.0 04/28/18 08:09 Blood Gas Comments Son well-sd 04/28/18 08:09 Sodium 144 mmol/L (136-145) 05/02/18 05:49 Corrected Sodium 145 mmol/L (136-145) 05/02/18 05:49 Potassium 3.0 mmol/L (3.5-5.1) L* 05/02/18 05:49 Chloride 109 mmol/L (98-107) H 05/02/18 05:49 Carbon Dioxide 21.0 mmol/L (21-32) 05/02/18 05:49 BUN 55 mg/dL (7-18) H 05/02/18 05:49 Creatinine 2.87 mg/dL (0.55-1.02) H 05/02/18 05:49 Est GFR (MDRD) Af Amer 21 (>60) L 05/02/18 05:49 Est GFR (MDRD) Non-Af 18 (>60) L 05/02/18 05:49 Glucose 147 mg/dL (65-99) H 05/02/18 05:49 POC Glucose (mg/dL) 119 mg/dL (65-99) H 05/02/18 10:52 Lactic Acid 0.5 mmol/L (0.4-2.0) 04/28/18 09:30 Calcium 7.8 mg/dL (8.5-10.1) L 05/02/18 05:49 Corrected Calcium 8.8 mg/dL (8.5-10.1) 05/02/18 05:49 Magnesium 2.2 mg/dL (1.7-2.9) 05/02/18 05:49 Total Bilirubin 0.30 mg/dL (0.2-1.0) 05/02/18 05:49 AST 34 Units/L (15-37) 05/02/18 05:49 ALT 18 Units/L (12-78) 05/02/18 05:49 Alkaline Phosphatase 116 Units/L (46-116) 05/02/18 05:49 Creatine Kinase 239 Units/L (26-192) H 05/01/18 09:43 CK-MB (CK-2) 1.6 ng/mL (0-4.0) 05/01/18 09:43 CK/CKMB % Calc 0.7 % (<4) 05/01/18 09:43 Troponin I 0.05 ng/mL (0-1.5) 05/01/18 09:43 Total Protein 6.7 g/dL (6.4-8.2) 05/02/18 05:49 Albumin 2.7 g/dL (3.4-5.0) L 05/02/18 05:49 Globulin 4.0 g/dL (2.5-4.5) 05/02/18 05:49 Albumin/Globulin Ratio 0.7 Ratio (1.1-2.1) L 05/02/18 05:49 Amylase 67 Units/L (25-115) 05/02/18 05:49 Lipase 762 Units/L (73-393) H 05/02/18 05:49 Specimen Type Catherized urine 04/26/18 17:39 Urine Color Yellow (YELLOW) 04/26/18 17:39 Urine Appearance Cloudy (CLEAR) 04/26/18 17:39 Urine pH 5.0 (5.0 - 8.0) 04/26/18 17:39 Ur Specific [place] 1.015 (1.000-1.030) 04/26/18 17:39 Urine Protein 3+ (NEGATIVE) 04/26/18 17:39 Urine Glucose (UA) 1+ (NEGATIVE) 04/26/18 17:39 Urine Ketones Negative (NEGATIVE) 04/26/18 17:39 Urine Occult Blood 4+ (NEGATIVE) 04/26/18 17:39 Urine Nitrite Negative (NEGATIVE) 04/26/18 17:39 Urine Bilirubin Negative (NEGATIVE) 04/26/18 17:39 Urine Acetone Small (NEGATIVE) H 04/27/18 11:10 Urine Urobilinogen Normal (NORMAL) 04/26/18 17:39 Ur Leukocyte Esterase 3+ (NEGATIVE) 04/26/18 17:39 Urine RBC 10-20 /HPF (NONE SEEN) 04/26/18 17:39 Urine WBC Tntc /HPF (NONE SEEN) 04/26/18 17:39 Ur Squamous Epith Cells Many /HPF (NEGATIVE) 04/26/18 17:39 Amorphous Sediment 1+ /HPF (NEGATIVE) 04/26/18 17:39 Urine Bacteria 2+ /HPF (NEGATIVE) 04/26/18 17:39 Ur Culture Indicated? Yes/culture set up 04/26/18 17:39 Stool Description 90 grs brown soft 04/29/18 15:35 Stl Occult Blood (IFOB) Negative (NEGATIVE) 04/29/18 15:35 Stool for White Cells Negative (NEGATIVE) 04/29/18 15:35 Stl C. diff Tox B Gene Negative (NEGATIVE) 04/29/18 16:10 Stl C. diff [id number] Negative (NEGATIVE) 04/29/18 16:10 Acetone, Semi-Quant Negative (NEGATIVE) 05/01/18 09:43 - Plan (1) Acute renal failure Status: Acute Plan: CONTINUOUS CARDIAC MONITORING. AM LABS. BLOOD AND URINE CULTURES COLLECTED ON ADMISSION. NPO EXCEPT ICE CHIPS. CT HEAD AND ABD W/O ON ADMISSION WITH NO ACUTE FINDINGS,CONTINUOUS BP MONITORING. IV HYDRATION, SUPPLEMENTAL O2. [facility] CATH WITH STRICT I&OS. BLOOD SUGAR CONTROL (2) Hypokalemia Status: Acute Plan: 1/2NS 40KCL WITH REPEAT AM CMP, NPO (3) Hypotension Status: Resolved Plan: CONTINUOUS CARDIAC MONITORING AND REPEAT AM CXR. CBC CMP UA LACTIC ACID, ABG. BLOOD AND URINE CULTURES COLLECTED ON ADMISSION. REPEAT AM LABS LACTIC ACID, SERUM ACETONE, ABG THIS AM. CT HEAD AND ABD W/O ON ADMISSION WITH NO ACUTE FINDINGS,CONTINUOUS BP MONITORING. IV HYDRATION, SUPPLEMENTAL O2. [facility] CATH WITH STRICT I&OS. BLOOD SUGAR CONTROL (4) Nausea & vomiting Status: Acute (5) Dehydration Status: Acute (6) Hypertension Status: Chronic (7) Diabetes Status: Chronic (8) COPD (chronic obstructive pulmonary disease) with acute bronchitis Status: Chronic (9) Anemia Status: Inactive (10) Acute pancreatitis Status: Acute Plan: PAIN CONTROL, IV HYDRATION
[2018-05-02] MEDS ORDERED: LEXAPRO ONE (20:49)
[2018-05-02] MEDS: CRESTOR TAB 10 MG PO SCH (21:00)
[2018-05-02] MEDS: LEXAPRO PO SCH (21:00)
[2018-05-02] MEDS: LOVENOX INJ 30 MG SYR SC SCH (21:00)
[2018-05-02] MEDS: EXEMESTANE 25 MG PO SCH (21:00)
[2018-05-02] MEDS: SNACK - Diabetic Appropriate PO SCH (21:48)
[2018-05-03] MEDS: CEVIMELINE 30 MG PO SCH ×3 (05:54→21:20)
[2018-05-03] MEDS: NS 1/2 + KCL 20 MEQ/L 1,000 ML IV SCH ×3 (05:54→23:49)
[2018-05-03] MEDS: NORCO 10/325 TAB PO PRN (06:26)
[2018-05-03 06:32] LABS: BASOPHILS # (AUTO) 0.1 X10^3/uL (0.0-0.1); BASOPHILS % (AUTO) 0.8 % (0.2-1.0); EOSINOPHILS # (AUTO) 0.4 x10^3/uL (0.0-0.2); EOSINOPHILS % (AUTO) 3.7 % (0.9-2.9); HEMATOCRIT 29.1 % (36.0-47.0); LYMPHOCYTES # (AUTO) 2.4 X10^3/uL (1.3-2.9); LYMPHOCYTES % (AUTO) 20.3 % (21.0-51.0); MEAN CORPUSCULAR HEMOGLOBIN 29.5 pg (27.0-34.0); MEAN CORPUSCULAR HGB CONC 34.4 g/dL (33.0-35.0); MEAN CORPUSCULAR VOLUME 85.8 fL (80.0-100.0); MEAN PLATELET VOLUME 8.5 fL (7.4-11.0); MONOCYTES # (AUTO) 1.2 x10^3/uL (0.3-0.8); MONOCYTES % (AUTO) 10.6 % (0.0-13.0); NEUTROPHILS # (AUTO) 7.5 x10^3/uL (2.2-4.8); NEUTROPHILS % (AUTO) 64.6 % (42.0-75.0); PLATELET COUNT 225 X10^3/uL (150.0-450.0); RED BLOOD COUNT 3.39 X10^6/uL (3.5-5.4); RED CELL DISTRIBUTION WIDTH 15.3 % (11.6-16.5); WHITE BLOOD COUNT 11.6 X10^3/uL (3.6-10.0)
[2018-05-03 06:48] LABS: ALBUMIN 2.5 g/dL (3.4-5.0); CALCIUM 7.9 mg/dL (8.5-10.1); CARBON DIOXIDE 20.2 mmol/L (21-32); COR CA(FOR HYPOALB) 9.1 mg/dL (8.5-10.1); CREATININE 2.46 mg/dL (0.55-1.02); TOTAL PROTEIN 6.4 g/dL (6.4-8.2)
[2018-05-03] MEDS: ZOFRAN INJ 4 MG VIAL IVP PRN ×2 (07:04→23:50)
[2018-05-03] MEDS: PHENERGAN INJ 25 MG IV PRN ×2 (07:30→18:26)
[2018-05-03] MEDS: PEPCID 20 MG IV PREMIX* 20 MG/50 ML BAG IV SCH (08:34)
[2018-05-03] MEDS: ROCEPHIN VIAL 1 GRAM IVP SCH (10:21)
[2018-05-03] MEDS: COZAAR PO SCH (10:21)
[2018-05-03] MEDS ORDERED: NS 1/2 + KCL 20 MEQ/L 1,000 ML IV ONE (10:23)
[2018-05-03] MEDS: MORPHINE SULFATE INJ 2 MG INJ IVP PRN ×2 (12:29→19:22)
[2018-05-03] MEDS ORDERED: PHENERGAN INJ 25 MG IV ONE (12:36)
[2018-05-03] MEDS ORDERED: CATAPRES TAB 0.1 MG PO PRN (12:36)
[2018-05-03] MEDS ORDERED: APRESOLINE INJ 20 MG VIAL IVP PRN (12:36)
[2018-05-03] MEDS ORDERED: PHENERGAN INJ 25 MG ONE (12:45)
[2018-05-03] MEDS ORDERED: PROTONIX INJ 40 MG VIAL ONE (12:45)
[2018-05-03] MEDS ORDERED: APRESOLINE INJ 20 MG VIAL ONE (12:45)
[2018-05-03] MEDS ORDERED: CATAPRES TAB 0.1 MG ONE (12:45)
[2018-05-03] MEDS ORDERED: NORVASC TAB 5 MG ONE (12:45)
[2018-05-03] MEDS: PROTONIX INJ 40 MG VIAL IVP SCH ×2 (13:02→21:09)
[2018-05-03] MEDS: NORVASC TAB 5 MG PO SCH (13:02)
--- NOTE | 2018-05-03 17:47 | PCM.PROG ---
Progress Note - Progress Note for Day of Date of Exam: 05/03/18 - Subjective Subjective: 63 WF ADMITTED ON 04/26 WITH N/V, SEVERE DEHYDRATION, ACUTE RENAL FAILURE, METABOLIC ACIDOSIS. ACIDOSIS RESOLVED, CONTINUES WITH SLGHT IMPROVEMENT IN RENAL FUNCTION, BUN 49, CREAT 2.46. PT REPORTS IMPROVING NAUSEA THIS AM, PT CURRENTLY NPO. PT REPEAT AMLYLASE 64, LIPASE 643, PT ASKING FOR LIQUIDS THIS AM, WILL CONTINUE NPO EXCEPT ICE CHIPS DUE TO PANCREATITIS, REPEAT AM LABS, POTASSIUM REPLACEMENT CONTINUED WITH K +3.2. PT REPORTS LEG CRAMPS IMPROVING - Past Medical Family Social History Past Med/Fam/Surg Hx: No changes since H&P Allergies: Allergies penicillin G Allergy (Verified 09/02/17 17:26) sulfamethoxazole [From Bactrim] Allergy (Verified 09/02/17 17:26) trimethoprim [From Bactrim] Allergy (Verified 09/02/17 17:26) - Review of Systems ROS: No change since H&P - Vital Signs and I&O's Vital Signs: Temperature 98.7 F Pulse Rate [Right Brachial] 67 Pulse Rate 64 Respiratory Rate 13 Blood Pressure [Right Arm] 167/70 Blood Pressure 143/66 O2 Sat by Pulse Oximetry 100 Intake and Output: Intake & Output 05/01/18 05/02/18 05/03/18 05/04/18 11:59 11:59 11:59 11:59 Intake Total 4393 / 4393 4008 / 4008 3556 / 3556 1255 / 1255 Output Total 5400 / 5400 4300 / 4300 3100 / 3100 1300 / 1300 Balance -1007 / -1007 -292 / -292 456 / 456 -45 / -45 - Physical Exam Oriented: Normal Eyes: Normal Ear: Normal Nose: Normal Throat: Dry Respiratory: Diminished Cardiovascular: Normal. negative: Edema Auscultation: Bowel Sounds: Normal Tenderness: Epigastric (MILD) Skin: Decreased Turgur Musculoskeletal: Right, Left, Foot, Back:Lumbar, Sensory Deficit Psychiatric: Anxiety, Depression Mood Description: Calm Speech Pattern: Clear, Appropriate - Laboratory and Diagnostics Result Diagrams: 05/03/18 06:00 05/03/18 06:00 Labs: 04/27/18 08:21 Blood Blood Culture - Final 04/27/18 08:10 Blood Blood Culture - Final 04/29/18 15:35 Stool Stool Culture - Final 04/29/18 15:35 Stool - Final 04/26/18 13:53 Blood Blood Culture - Final 04/26/18 13:47 Blood Blood Culture - Final 04/26/18 17:39 Urine,Catheterized Urine Culture - Final Laboratory WBC 11.6 X10^3/uL (3.6-10.0) H 05/03/18 06:00 RBC 3.39 X10^6/uL (3.5-5.4) L 05/03/18 06:00 Hgb 10.0 g/dL (12.0-16.0) L 05/03/18 06:00 Hct 29.1 % (36.0-47.0) L 05/03/18 06:00 MCV 85.8 fL (80.0-100.0) 05/03/18 06:00 MCH 29.5 pg (27.0-34.0) 05/03/18 06:00 MCHC 34.4 g/dL (33.0-35.0) 05/03/18 06:00 RDW 15.3 % (11.6-16.5) 05/03/18 06:00 Plt Count 225 X10^3/uL (150.0-450.0) 05/03/18 06:00 MPV 8.5 fL (7.4-11.0) 05/03/18 06:00 Neut % (Auto) 64.6 % (42.0-75.0) 05/03/18 06:00 Lymph % (Auto) 20.3 % (21.0-51.0) L 05/03/18 06:00 [place] % (Auto) 10.6 % (0.0-13.0) 05/03/18 06:00 Eos % (Auto) 3.7 % (0.9-2.9) H 05/03/18 06:00 Baso % (Auto) 0.8 % (0.2-1.0) 05/03/18 06:00 Neut # (Auto) 7.5 x10^3/uL (2.2-4.8) H 05/03/18 06:00 Lymph # (Auto) 2.4 X10^3/uL (1.3-2.9) 05/03/18 06:00 [place] # (Auto) 1.2 x10^3/uL (0.3-0.8) H 05/03/18 06:00 Eos # (Auto) 0.4 x10^3/uL (0.0-0.2) H 05/03/18 06:00 Baso # (Auto) 0.1 X10^3/uL (0.0-0.1) 05/03/18 06:00 Absolute Nucleated RBC 0.0 /100WBC 05/03/18 06:00 Sample Site Rr 04/28/18 08:09 ABG pH 7.330 (7.35-7.45) L 04/28/18 08:09 ABG pCO2 29.0 mmHg (35.0-45.0) L 04/28/18 08:09 ABG pO2 92.0 mmHg (80.0-100.0) 04/28/18 08:09 ABG HCO3 15.3 mmol/L (22-26) L* 04/28/18 08:09 ABG O2 Saturation 97.0 % (90-100) 04/28/18 08:09 ABG Base Excess -9.3 mmol/L (-2.0-2.0) L 04/28/18 08:09 Yoshi Test P 04/28/18 08:09 A-a Gradient 21.0 mmHg 04/28/18 08:09 FiO2 21.0 04/28/18 08:09 Blood Gas Comments Son well-sd 04/28/18 08:09 Sodium 145 mmol/L (136-145) 05/03/18 06:00 Corrected Sodium 145 mmol/L (136-145) 05/03/18 06:00 Potassium 3.2 mmol/L (3.5-5.1) L 05/03/18 06:00 Chloride 112 mmol/L (98-107) H 05/03/18 06:00 Carbon Dioxide 20.2 mmol/L (21-32) L 05/03/18 06:00 BUN 49 mg/dL (7-18) H 05/03/18 06:00 Creatinine 2.46 mg/dL (0.55-1.02) H 05/03/18 06:00 Est GFR (MDRD) Af Amer 25 (>60) L 05/03/18 06:00 Est GFR (MDRD) Non-Af 21 (>60) L 05/03/18 06:00 Glucose 120 mg/dL (65-99) H 05/03/18 06:00 POC Glucose (mg/dL) 151 mg/dL (65-99) H 05/03/18 16:50 Lactic Acid 0.5 mmol/L (0.4-2.0) 04/28/18 09:30 Calcium 7.9 mg/dL (8.5-10.1) L 05/03/18 06:00 Corrected Calcium 9.1 mg/dL (8.5-10.1) 05/03/18 06:00 Magnesium 2.2 mg/dL (1.7-2.9) 05/02/18 05:49 Total Bilirubin 0.30 mg/dL (0.2-1.0) 05/03/18 06:00 AST 35 Units/L (15-37) 05/03/18 06:00 ALT 16 Units/L (12-78) 05/03/18 06:00 Alkaline Phosphatase 120 Units/L (46-116) H 05/03/18 06:00 Creatine Kinase 239 Units/L (26-192) H 05/01/18 09:43 CK-MB (CK-2) 1.6 ng/mL (0-4.0) 05/01/18 09:43 CK/CKMB % Calc 0.7 % (<4) 05/01/18 09:43 Troponin I 0.05 ng/mL (0-1.5) 05/01/18 09:43 Total Protein 6.4 g/dL (6.4-8.2) 05/03/18 06:00 Albumin 2.5 g/dL (3.4-5.0) L 05/03/18 06:00 Globulin 3.9 g/dL (2.5-4.5) 05/03/18 06:00 Albumin/Globulin Ratio 0.6 Ratio (1.1-2.1) L 05/03/18 06:00 Amylase 64 Units/L (25-115) 05/03/18 06:00 Lipase 643 Units/L (73-393) H 05/03/18 06:00 Specimen Type Catherized urine 04/26/18 17:39 Urine Color Yellow (YELLOW) 04/26/18 17:39 Urine Appearance Cloudy (CLEAR) 04/26/18 17:39 Urine pH 5.0 (5.0 - 8.0) 04/26/18 17:39 Ur Specific [place] 1.015 (1.000-1.030) 04/26/18 17:39 Urine Protein 3+ (NEGATIVE) 04/26/18 17:39 Urine Glucose (UA) 1+ (NEGATIVE) 04/26/18 17:39 Urine Ketones Negative (NEGATIVE) 04/26/18 17:39 Urine Occult Blood 4+ (NEGATIVE) 04/26/18 17:39 Urine Nitrite Negative (NEGATIVE) 04/26/18 17:39 Urine Bilirubin Negative (NEGATIVE) 04/26/18 17:39 Urine Acetone Small (NEGATIVE) H 04/27/18 11:10 Urine Urobilinogen Normal (NORMAL) 04/26/18 17:39 Ur Leukocyte Esterase 3+ (NEGATIVE) 04/26/18 17:39 Urine RBC 10-20 /HPF (NONE SEEN) 04/26/18 17:39 Urine WBC Tntc /HPF (NONE SEEN) 04/26/18 17:39 Ur Squamous Epith Cells Many /HPF (NEGATIVE) 04/26/18 17:39 Amorphous Sediment 1+ /HPF (NEGATIVE) 04/26/18 17:39 Urine Bacteria 2+ /HPF (NEGATIVE) 04/26/18 17:39 Ur Culture Indicated? Yes/culture set up 04/26/18 17:39 Stool Description 90 grs brown soft 04/29/18 15:35 Stl Occult Blood (IFOB) Negative (NEGATIVE) 04/29/18 15:35 Stool for White Cells Negative (NEGATIVE) 04/29/18 15:35 Stl C. diff Tox B Gene Negative (NEGATIVE) 04/29/18 16:10 Stl C. diff [id number] Negative (NEGATIVE) 04/29/18 16:10 Acetone, Semi-Quant Negative (NEGATIVE) 05/01/18 09:43 - Plan (1) Acute renal failure Status: Acute Plan: CONTINUOUS CARDIAC MONITORING. AM LABS. BLOOD AND URINE CULTURES COLLECTED ON ADMISSION. NPO EXCEPT ICE CHIPS. CT HEAD AND ABD W/O ON ADMISSION WITH NO ACUTE FINDINGS,CONTINUOUS BP MONITORING. IV HYDRATION, SUPPLEMENTAL O2. [facility] CATH WITH STRICT I&OS. BLOOD SUGAR CONTROL (2) Hypokalemia Status: Acute Plan: 1/2NS 40KCL WITH REPEAT AM CMP, NPO (3) Hypotension Status: Resolved Plan: CONTINUOUS CARDIAC MONITORING AND REPEAT AM CXR. CBC CMP UA LACTIC ACID, ABG. BLOOD AND URINE CULTURES COLLECTED ON ADMISSION. REPEAT AM LABS LACTIC ACID, SERUM ACETONE, ABG THIS AM. CT HEAD AND ABD W/O ON ADMISSION WITH NO ACUTE FINDINGS,CONTINUOUS BP MONITORING. IV HYDRATION, SUPPLEMENTAL O2. [facility] CATH WITH STRICT I&OS. BLOOD SUGAR CONTROL (4) Nausea & vomiting Status: Acute (5) Dehydration Status: Acute (6) Hypertension Status: Chronic (7) Diabetes Status: Chronic (8) COPD (chronic obstructive pulmonary disease) with acute bronchitis Status: Chronic (9) Anemia Status: Inactive (10) Acute pancreatitis Status: Acute Plan: PAIN CONTROL, IV HYDRATION. REPEAT AMYLASE AND LIPASE
--- NOTE | 2018-05-03 18:35 | RAD ---
History: Pain Exam: Acute abdominal series Comparison: 02/14/2008 Technique: AP chest and supine upright views of the abdomen Findings: The heart is mildly enlarged. The pulmonary vessels are less prominent . There is a breast prosthesis on the right obscuring detail. The lungs are mildly hyperinflated. No consolidation or effusion is seen. The gas pattern is unremarkable. No renal stones are seen. Surgical clips are seen along the right upper quadrant. IMPRESSION: Stable chronic lung changes. Nonspecific gas pattern. Reported By:
[2018-05-03] MEDS: SNACK - Diabetic Appropriate PO SCH (20:00)
[2018-05-03] MEDS ORDERED: LEXAPRO ONE (20:51)
[2018-05-03] MEDS: LEXAPRO PO SCH (21:05)
[2018-05-03] MEDS: LOVENOX INJ 30 MG SYR SC SCH (21:05)
[2018-05-03] MEDS: EXEMESTANE 25 MG PO SCH (21:06)
[2018-05-03] MEDS: CRESTOR TAB 10 MG PO SCH (21:13)
[2018-05-04] MEDS: TYLENOL 325 MG TAB PO PRN (02:23)
[2018-05-04] MEDS: MORPHINE SULFATE INJ 2 MG INJ IVP PRN ×2 (05:35→10:59)
[2018-05-04] MEDS: ZOFRAN INJ 4 MG VIAL IVP PRN ×2 (05:35→21:07)
[2018-05-04] MEDS: CEVIMELINE 30 MG PO SCH ×3 (05:48→21:22)
[2018-05-04 06:53] LABS: BASOPHILS # (AUTO) 0.1 X10^3/uL (0.0-0.1); BASOPHILS % (AUTO) 0.8 % (0.2-1.0); EOSINOPHILS # (AUTO) 0.2 x10^3/uL (0.0-0.2); EOSINOPHILS % (AUTO) 1.8 % (0.9-2.9); HEMATOCRIT 28.1 % (36.0-47.0); HEMOGLOBIN 9.7 g/dL (12.0-16.0); LYMPHOCYTES # (AUTO) 2.4 X10^3/uL (1.3-2.9); LYMPHOCYTES % (AUTO) 20.8 % (21.0-51.0); MEAN CORPUSCULAR HEMOGLOBIN 29.6 pg (27.0-34.0); MEAN CORPUSCULAR HGB CONC 34.4 g/dL (33.0-35.0); MEAN CORPUSCULAR VOLUME 85.9 fL (80.0-100.0); MONOCYTES # (AUTO) 1.2 x10^3/uL (0.3-0.8); MONOCYTES % (AUTO) 10.3 % (0.0-13.0); NEUTROPHILS # (AUTO) 7.6 x10^3/uL (2.2-4.8); NEUTROPHILS % (AUTO) 66.3 % (42.0-75.0); PLATELET COUNT 212 X10^3/uL (150.0-450.0); RED BLOOD COUNT 3.27 X10^6/uL (3.5-5.4); RED CELL DISTRIBUTION WIDTH 15.3 % (11.6-16.5); WHITE BLOOD COUNT 11.5 X10^3/uL (3.6-10.0)
[2018-05-04 07:01] LABS: ALANINE AMINOTRANSFERASE 20 Units/L (12-78); ALBUMIN 2.5 g/dL (3.4-5.0); ALKALINE PHOSPHATASE 105 Units/L (46-116); AMYLASE 59 Units/L (25-115); ASPARTATE AMINO TRANSFERASE 39 Units/L (15-37); BLOOD UREA NITROGEN 35 mg/dL (7-18); CARBON DIOXIDE 21.5 mmol/L (21-32); CHLORIDE 112 mmol/L (98-107); COR CA(FOR HYPOALB) 9.2 mg/dL (8.5-10.1); CREATININE 2.16 mg/dL (0.55-1.02); LIPASE 509 Units/L (73-393); MAGNESIUM 1.6 mg/dL (1.7-2.9); SODIUM 146 mmol/L (136-145); THEOPHYLLINE < 2.0 ug/mL (10-20); TOTAL PROTEIN 6.3 g/dL (6.4-8.2); eGFR NON BLACK RACES 24 (>60)
[2018-05-04] MEDS: NS 1/2 + KCL 20 MEQ/L 1,000 ML IV SCH ×4 (08:31→18:33)
[2018-05-04] MEDS: NORVASC TAB 5 MG PO SCH (09:51)
[2018-05-04] MEDS: ROCEPHIN VIAL 1 GRAM IVP SCH (09:51)
[2018-05-04] MEDS: PROTONIX INJ 40 MG VIAL IVP SCH ×2 (09:51→21:07)
[2018-05-04] MEDS: PHENERGAN INJ 25 MG IV PRN (10:58)
--- NOTE | 2018-05-04 12:27 | PCM.PROG ---
Progress Note - Progress Note for Day of Date of Exam: 05/04/18 - Subjective Subjective: 63 WF ADMITTED ON 04/26 WITH N/V, SEVERE DEHYDRATION, ACUTE RENAL FAILURE, METABOLIC ACIDOSIS. ACIDOSIS RESOLVED, CONTINUES WITH SLGHT IMPROVEMENT IN RENAL FUNCTION, BUN 35, CREAT 2.16. PT REPORTS IMPROVING NAUSEA THIS AM, NO VOMITING. PT CURRENTLY NPO. PT REPEAT AMLYLASE 59, LIPASE 509. PT ASKING TO ADVANCE DIET.REPEAT AM LABS, POTASSIUM REPLACEMENT CONTINUED WITH K +3.6. - Past Medical Family Social History Past Med/Fam/Surg Hx: No changes since H&P Allergies: Allergies penicillin G Allergy (Verified 09/02/17 17:26) sulfamethoxazole [From Bactrim] Allergy (Verified 09/02/17 17:26) trimethoprim [From Bactrim] Allergy (Verified 09/02/17 17:26) - Review of Systems ROS: No change since H&P - Vital Signs and I&O's Vital Signs: Temperature 99.5 F Pulse Rate [Right Brachial] 67 Pulse Rate 77 Respiratory Rate 23 Blood Pressure [Right Arm] 167/70 Blood Pressure 184/73 O2 Sat by Pulse Oximetry 98 Intake and Output: Intake & Output 05/02/18 05/03/18 05/04/18 05/05/18 11:59 11:59 11:59 11:59 Intake Total 4008 / 4008 3556 / 3556 3561 / 3561 Output Total 4300 / 4300 3100 / 3100 3200 / 3200 Balance -292 / -292 456 / 456 361 / 361 - Physical Exam Oriented: Normal Eyes: Normal Ear: Normal Nose: Normal Throat: Dry Respiratory: Diminished Cardiovascular: Normal. negative: Edema Auscultation: Bowel Sounds: Normal Tenderness: Epigastric (MILD) Skin: Decreased Turgur Musculoskeletal: Right, Left, Foot, Back:Lumbar, Sensory Deficit Psychiatric: Anxiety, Depression Mood Description: Calm Speech Pattern: Clear, Appropriate - Laboratory and Diagnostics Result Diagrams: 05/04/18 05:15 05/04/18 05:15 Labs: 04/27/18 08:21 Blood Blood Culture - Final 04/27/18 08:10 Blood Blood Culture - Final 04/29/18 15:35 Stool Stool Culture - Final 04/29/18 15:35 Stool - Final 04/26/18 13:53 Blood Blood Culture - Final 04/26/18 13:47 Blood Blood Culture - Final 04/26/18 17:39 Urine,Catheterized Urine Culture - Final Laboratory WBC 11.5 X10^3/uL (3.6-10.0) H 05/04/18 05:15 RBC 3.27 X10^6/uL (3.5-5.4) L 05/04/18 05:15 Hgb 9.7 g/dL (12.0-16.0) L 05/04/18 05:15 Hct 28.1 % (36.0-47.0) L 05/04/18 05:15 MCV 85.9 fL (80.0-100.0) 05/04/18 05:15 MCH 29.6 pg (27.0-34.0) 05/04/18 05:15 MCHC 34.4 g/dL (33.0-35.0) 05/04/18 05:15 RDW 15.3 % (11.6-16.5) 05/04/18 05:15 Plt Count 212 X10^3/uL (150.0-450.0) 05/04/18 05:15 MPV 9.0 fL (7.4-11.0) 05/04/18 05:15 Neut % (Auto) 66.3 % (42.0-75.0) 05/04/18 05:15 Lymph % (Auto) 20.8 % (21.0-51.0) L 05/04/18 05:15 [place] % (Auto) 10.3 % (0.0-13.0) 05/04/18 05:15 Eos % (Auto) 1.8 % (0.9-2.9) 05/04/18 05:15 Baso % (Auto) 0.8 % (0.2-1.0) 05/04/18 05:15 Neut # (Auto) 7.6 x10^3/uL (2.2-4.8) H 05/04/18 05:15 Lymph # (Auto) 2.4 X10^3/uL (1.3-2.9) 05/04/18 05:15 [place] # (Auto) 1.2 x10^3/uL (0.3-0.8) H 05/04/18 05:15 Eos # (Auto) 0.2 x10^3/uL (0.0-0.2) 05/04/18 05:15 Baso # (Auto) 0.1 X10^3/uL (0.0-0.1) 05/04/18 05:15 Absolute Nucleated RBC 0.0 /100WBC 05/04/18 05:15 Sample Site Rr 04/28/18 08:09 ABG pH 7.330 (7.35-7.45) L 04/28/18 08:09 ABG pCO2 29.0 mmHg (35.0-45.0) L 04/28/18 08:09 ABG pO2 92.0 mmHg (80.0-100.0) 04/28/18 08:09 ABG HCO3 15.3 mmol/L (22-26) L* 04/28/18 08:09 ABG O2 Saturation 97.0 % (90-100) 04/28/18 08:09 ABG Base Excess -9.3 mmol/L (-2.0-2.0) L 04/28/18 08:09 Yoshi Test P 04/28/18 08:09 A-a Gradient 21.0 mmHg 04/28/18 08:09 FiO2 21.0 04/28/18 08:09 Blood Gas Comments Son well-sd 04/28/18 08:09 Sodium 146 mmol/L (136-145) H 05/04/18 05:15 Corrected Sodium TNP 05/04/18 05:15 Potassium 3.6 mmol/L (3.5-5.1) 05/04/18 05:15 Chloride 112 mmol/L (98-107) H 05/04/18 05:15 Carbon Dioxide 21.5 mmol/L (21-32) 05/04/18 05:15 BUN 35 mg/dL (7-18) H 05/04/18 05:15 Creatinine 2.16 mg/dL (0.55-1.02) H 05/04/18 05:15 Est GFR (MDRD) Af Amer 29 (>60) L 05/04/18 05:15 Est GFR (MDRD) Non-Af 24 (>60) L 05/04/18 05:15 Glucose 97 mg/dL (65-99) 05/04/18 05:15 POC Glucose (mg/dL) 151 mg/dL (65-99) H 05/04/18 11:29 Lactic Acid 0.5 mmol/L (0.4-2.0) 04/28/18 09:30 Calcium 8.0 mg/dL (8.5-10.1) L 05/04/18 05:15 Corrected Calcium 9.2 mg/dL (8.5-10.1) 05/04/18 05:15 Magnesium 1.6 mg/dL (1.7-2.9) L 05/04/18 05:15 Total Bilirubin 0.30 mg/dL (0.2-1.0) 05/04/18 05:15 AST 39 Units/L (15-37) H 05/04/18 05:15 ALT 20 Units/L (12-78) 05/04/18 05:15 Alkaline Phosphatase 105 Units/L (46-116) 05/04/18 05:15 Creatine Kinase 239 Units/L (26-192) H 05/01/18 09:43 CK-MB (CK-2) 1.6 ng/mL (0-4.0) 05/01/18 09:43 CK/CKMB % Calc 0.7 % (<4) 05/01/18 09:43 Troponin I 0.05 ng/mL (0-1.5) 05/01/18 09:43 Total Protein 6.3 g/dL (6.4-8.2) L 05/04/18 05:15 Albumin 2.5 g/dL (3.4-5.0) L 05/04/18 05:15 Globulin 3.8 g/dL (2.5-4.5) 05/04/18 05:15 Albumin/Globulin Ratio 0.7 Ratio (1.1-2.1) L 05/04/18 05:15 Amylase 59 Units/L (25-115) 05/04/18 05:15 Lipase 509 Units/L (73-393) H 05/04/18 05:15 Specimen Type Catherized urine 04/26/18 17:39 Urine Color Yellow (YELLOW) 04/26/18 17:39 Urine Appearance Cloudy (CLEAR) 04/26/18 17:39 Urine pH 5.0 (5.0 - 8.0) 12/12/18 17:39 Ur Specific [place] 1.015 (1.000-1.030) 04/26/18 17:39 Urine Protein 3+ (NEGATIVE) 04/26/18 17:39 Urine Glucose (UA) 1+ (NEGATIVE) 04/26/18 17:39 Urine Ketones Negative (NEGATIVE) 04/26/18 17:39 Urine Occult Blood 4+ (NEGATIVE) 04/26/18 17:39 Urine Nitrite Negative (NEGATIVE) 04/26/18 17:39 Urine Bilirubin Negative (NEGATIVE) 04/26/18 17:39 Urine Acetone Small (NEGATIVE) H 04/27/18 11:10 Urine Urobilinogen Normal (NORMAL) 04/26/18 17:39 Ur Leukocyte Esterase 3+ (NEGATIVE) 04/26/18 17:39 Urine RBC 10-20 /HPF (NONE SEEN) 04/26/18 17:39 Urine WBC Tntc /HPF (NONE SEEN) 04/26/18 17:39 Ur Squamous Epith Cells Many /HPF (NEGATIVE) 04/26/18 17:39 Amorphous Sediment 1+ /HPF (NEGATIVE) 04/26/18 17:39 Urine Bacteria 2+ /HPF (NEGATIVE) 04/26/18 17:39 Ur Culture Indicated? Yes/culture set up 04/26/18 17:39 Stool Description 90 grs brown soft 04/29/18 15:35 Stl Occult Blood (IFOB) Negative (NEGATIVE) 04/29/18 15:35 Stool for White Cells Negative (NEGATIVE) 04/29/18 15:35 Stl C. diff Tox B Gene Negative (NEGATIVE) 04/29/18 16:10 Stl C. diff [id number] Negative (NEGATIVE) 04/29/18 16:10 Theophylline < 2.0 ug/mL (10-20) L 05/04/18 05:15 Acetone, Semi-Quant Negative (NEGATIVE) 05/01/18 09:43 - Plan (1) Acute renal failure Status: Acute Plan: CONTINUOUS CARDIAC MONITORING. AM LABS, NAUSEA CONTROL, GENTLE PO HYDRATION. BLOOD AND URINE CULTURES COLLECTED ON ADMISSION. CT HEAD AND ABD W/O ON ADMISSION WITH NO ACUTE FINDINGS,CONTINUOUS BP MONITORING. IV HYDRATION, SUPPLEMENTAL O2. [facility] CATH WITH STRICT I&OS. BLOOD SUGAR CONTROL (2) Hypokalemia Status: Acute Plan: 1/2NS 40KCL WITH REPEAT AM CMP, NPO (3) Hypotension Status: Resolved Plan: CONTINUOUS CARDIAC MONITORING AND REPEAT AM CXR. CBC CMP UA LACTIC ACID, ABG. BLOOD AND URINE CULTURES COLLECTED ON ADMISSION. REPEAT AM LABS LACTIC ACID, SERUM ACETONE, ABG THIS AM. CT HEAD AND ABD W/O ON ADMISSION WITH NO ACUTE FINDINGS,CONTINUOUS BP MONITORING. IV HYDRATION, SUPPLEMENTAL O2. [facility] CATH WITH STRICT I&OS. BLOOD SUGAR CONTROL (4) Nausea & vomiting Status: Acute (5) Dehydration Status: Acute (6) Hypertension Status: Chronic (7) Diabetes Status: Chronic (8) COPD (chronic obstructive pulmonary disease) with acute bronchitis Status: Chronic (9) Anemia Status: Inactive (10) Acute pancreatitis Status: Acute Plan: PAIN CONTROL, IV HYDRATION. REPEAT AMYLASE AND LIPASE
[2018-05-04] MEDS: NORCO 10/325 TAB PO PRN ×2 (15:26→21:06)
[2018-05-04] MEDS ORDERED: LEXAPRO ONE (20:49)
[2018-05-04] MEDS: CRESTOR TAB 10 MG PO SCH (21:06)
[2018-05-04] MEDS: ATIVAN TAB 0.5 MG PO PRN (21:06)
[2018-05-04] MEDS: LEXAPRO PO SCH (21:06)
[2018-05-04] MEDS: LOVENOX INJ 30 MG SYR SC SCH (21:07)
[2018-05-04] MEDS: SNACK - Diabetic Appropriate PO SCH (21:08)
[2018-05-04] MEDS: EXEMESTANE 25 MG PO SCH (21:22)
[2018-05-05] MEDS: NS 1/2 + KCL 20 MEQ/L 1,000 ML IV SCH ×2 (02:16→09:54)
[2018-05-05] MEDS: CEVIMELINE 30 MG PO SCH ×3 (06:26→22:01)
[2018-05-05 07:03] LABS: ALBUMIN 2.5 g/dL (3.4-5.0); CALCIUM 7.5 mg/dL (8.5-10.1); CARBON DIOXIDE 21.6 mmol/L (21-32); COR CA(FOR HYPOALB) 8.7 mg/dL (8.5-10.1); CREATININE 1.78 mg/dL (0.55-1.02); TOTAL PROTEIN 6.4 g/dL (6.4-8.2)
[2018-05-05 07:19] LABS: BASOPHILS # (AUTO) 0.1 X10^3/uL (0.0-0.1); BASOPHILS % (AUTO) 0.7 % (0.2-1.0); EOSINOPHILS # (AUTO) 0.3 x10^3/uL (0.0-0.2); EOSINOPHILS % (AUTO) 3.1 % (0.9-2.9); HEMATOCRIT 27.7 % (36.0-47.0); HEMOGLOBIN 9.7 g/dL (12.0-16.0); LYMPHOCYTES # (AUTO) 2.9 X10^3/uL (1.3-2.9); LYMPHOCYTES % (AUTO) 26.6 % (21.0-51.0); MEAN CORPUSCULAR HEMOGLOBIN 29.9 pg (27.0-34.0); MEAN CORPUSCULAR HGB CONC 34.9 g/dL (33.0-35.0); MEAN CORPUSCULAR VOLUME 85.9 fL (80.0-100.0); MEAN PLATELET VOLUME 8.7 fL (7.4-11.0); MONOCYTES # (AUTO) 1.1 x10^3/uL (0.3-0.8); MONOCYTES % (AUTO) 9.9 % (0.0-13.0); NEUTROPHILS # (AUTO) 6.4 x10^3/uL (2.2-4.8); NEUTROPHILS % (AUTO) 59.7 % (42.0-75.0); PLATELET COUNT 179 X10^3/uL (150.0-450.0); RED BLOOD COUNT 3.23 X10^6/uL (3.5-5.4); RED CELL DISTRIBUTION WIDTH 14.4 % (11.6-16.5); WHITE BLOOD COUNT 10.8 X10^3/uL (3.6-10.0)
[2018-05-05] MEDS: PROTONIX INJ 40 MG VIAL IVP SCH ×2 (08:27→22:00)
[2018-05-05] MEDS: NORVASC TAB 5 MG PO SCH (08:27)
[2018-05-05] MEDS: ROCEPHIN VIAL 1 GRAM IVP SCH (08:27)
[2018-05-05] MEDS: MORPHINE SULFATE INJ 2 MG INJ IVP PRN (08:28)
[2018-05-05] MEDS: NS 1000 ML 1,000 ML IV SCH (13:36)
[2018-05-05] MEDS: NORCO 10/325 TAB PO PRN ×2 (16:24→22:01)
[2018-05-05] MEDS: HumuLIN R SUBCUT PRN ×2 (17:57→22:02)
[2018-05-05] MEDS: SNACK - Diabetic Appropriate PO SCH (19:45)
[2018-05-05] MEDS ORDERED: LEXAPRO ONE (21:53)
[2018-05-05] MEDS: CRESTOR TAB 10 MG PO SCH (21:59)
[2018-05-05] MEDS: LOVENOX INJ 30 MG SYR SC SCH (21:59)
[2018-05-05] MEDS: LEXAPRO PO SCH (21:59)
[2018-05-05] MEDS: EXEMESTANE 25 MG PO SCH (22:00)
[2018-05-05] MEDS: ATIVAN TAB 0.5 MG PO PRN (22:08)
[2018-05-05] MEDS ORDERED: ULTRAM PO PRN (23:27)
[2018-05-06] MEDS: NS 1000 ML 1,000 ML IV SCH ×3 (02:27→14:24)
[2018-05-06] MEDS: CEVIMELINE 30 MG PO SCH ×3 (05:43→21:21)
[2018-05-06 06:05] LABS: BASOPHILS # (AUTO) 0.1 X10^3/uL (0.0-0.1); EOSINOPHILS # (AUTO) 0.3 x10^3/uL (0.0-0.2); EOSINOPHILS % (AUTO) 2.6 % (0.9-2.9); HEMATOCRIT 29.5 % (36.0-47.0); HEMOGLOBIN 10.2 g/dL (12.0-16.0); LYMPHOCYTES # (AUTO) 2.6 X10^3/uL (1.3-2.9); LYMPHOCYTES % (AUTO) 25.3 % (21.0-51.0); MEAN CORPUSCULAR HEMOGLOBIN 29.9 pg (27.0-34.0); MEAN CORPUSCULAR HGB CONC 34.5 g/dL (33.0-35.0); MEAN CORPUSCULAR VOLUME 86.7 fL (80.0-100.0); MEAN PLATELET VOLUME 8.5 fL (7.4-11.0); MONOCYTES % (AUTO) 9.5 % (0.0-13.0); NEUTROPHILS # (AUTO) 6.4 x10^3/uL (2.2-4.8); NEUTROPHILS % (AUTO) 61.6 % (42.0-75.0); PLATELET COUNT 186 X10^3/uL (150.0-450.0); RED BLOOD COUNT 3.41 X10^6/uL (3.5-5.4); RED CELL DISTRIBUTION WIDTH 14.6 % (11.6-16.5); WHITE BLOOD COUNT 10.3 X10^3/uL (3.6-10.0)
[2018-05-06 06:39] LABS: ALBUMIN 2.7 g/dL (3.4-5.0); CALCIUM 8.1 mg/dL (8.5-10.1); CARBON DIOXIDE 26.2 mmol/L (21-32); COR CA(FOR HYPOALB) 9.1 mg/dL (8.5-10.1); CREATININE 1.53 mg/dL (0.55-1.02)
[2018-05-06] MEDS: ZOFRAN INJ 4 MG VIAL IVP PRN ×4 (06:49→21:18)
[2018-05-06] MEDS: ROCEPHIN VIAL 1 GRAM IVP SCH (09:49)
[2018-05-06] MEDS: NORVASC TAB 5 MG PO SCH (09:49)
[2018-05-06] MEDS: PROTONIX INJ 40 MG VIAL IVP SCH ×2 (09:49→21:18)
[2018-05-06] MEDS ORDERED: REGLAN INJ 10 MG VIAL IVP PRN (13:05)
--- NOTE | 2018-05-06 13:08 | PCM.PROG ---
Progress Note - Progress Note for Day of Date of Exam: 05/06/18 - Subjective Subjective: 63 WF ADMITTED ON 04/26 WITH N/V, SEVERE DEHYDRATION, ACUTE RENAL FAILURE, METABOLIC ACIDOSIS. ACIDOSIS RESOLVED, CONTINUES WITH SLGHT IMPROVEMENT IN RENAL FUNCTION, BUN 15, CREAT 1.53. PT REPORTS NAUSEA FOLLOWED BY VOMITING LAST NIGHT AND THIS AM, CELAR YELLOW EMESIS, DENIES PAIN. LIPASE 440 THIS AM. WILL ENCOURAGE AMBULATION, BLADDER TRAINING TO [place] [facility]. GENTLE IV AND PO HYDRATION TOLERATED - Past Medical Family Social History Past Med/Fam/Surg Hx: No changes since H&P Allergies: Allergies penicillin G Allergy (Verified 09/02/17 17:26) sulfamethoxazole [From Bactrim] Allergy (Verified 09/02/17 17:26) trimethoprim [From Bactrim] Allergy (Verified 09/02/17 17:26) - Review of Systems ROS: No change since H&P - Vital Signs and I&O's Vital Signs: Temperature 97.6 F Pulse Rate [Right Brachial] 67 Pulse Rate 74 Respiratory Rate 12 Blood Pressure [Right Arm] 167/70 Blood Pressure 174/74 O2 Sat by Pulse Oximetry 96 Intake and Output: Intake & Output 05/04/18 05/05/18 05/06/18 05/07/18 11:59 11:59 11:59 11:59 Intake Total 3561 / 3561 2386 / 2386 1450 / 1450 Output Total 3200 / 3200 3850 / 3850 2975 / 2975 Balance 361 / 361 -1464 / -1464 -1525 / -1525 - Physical Exam Oriented: Normal Eyes: Normal Ear: Normal Nose: Normal Throat: Dry Respiratory: Diminished Cardiovascular: Normal. negative: Edema Auscultation: Bowel Sounds: Normal Tenderness: Epigastric (MILD) Skin: Decreased Turgur Musculoskeletal: Right, Left, Foot, Back:Lumbar, Sensory Deficit Psychiatric: Anxiety, Depression Mood Description: Calm Speech Pattern: Clear, Appropriate - Laboratory and Diagnostics Result Diagrams: 05/06/18 05:13 05/06/18 05:13 Labs: 04/27/18 08:21 Blood Blood Culture - Final 04/27/18 08:10 Blood Blood Culture - Final 04/29/18 15:35 Stool Stool Culture - Final 04/29/18 15:35 Stool - Final 04/26/18 13:53 Blood Blood Culture - Final 04/26/18 13:47 Blood Blood Culture - Final 04/26/18 17:39 Urine,Catheterized Urine Culture - Final Laboratory WBC 10.3 X10^3/uL (3.6-10.0) H 05/06/18 05:13 RBC 3.41 X10^6/uL (3.5-5.4) L 05/06/18 05:13 Hgb 10.2 g/dL (12.0-16.0) L 05/06/18 05:13 Hct 29.5 % (36.0-47.0) L 05/06/18 05:13 MCV 86.7 fL (80.0-100.0) 05/06/18 05:13 MCH 29.9 pg (27.0-34.0) 05/06/18 05:13 MCHC 34.5 g/dL (33.0-35.0) 05/06/18 05:13 RDW 14.6 % (11.6-16.5) 05/06/18 05:13 Plt Count 186 X10^3/uL (150.0-450.0) 05/06/18 05:13 MPV 8.5 fL (7.4-11.0) 05/06/18 05:13 Neut % (Auto) 61.6 % (42.0-75.0) 05/06/18 05:13 Lymph % (Auto) 25.3 % (21.0-51.0) 05/06/18 05:13 [place] % (Auto) 9.5 % (0.0-13.0) 05/06/18 05:13 Eos % (Auto) 2.6 % (0.9-2.9) 05/06/18 05:13 Baso % (Auto) 1.0 % (0.2-1.0) 05/06/18 05:13 Neut # (Auto) 6.4 x10^3/uL (2.2-4.8) H 05/06/18 05:13 Lymph # (Auto) 2.6 X10^3/uL (1.3-2.9) 05/06/18 05:13 [place] # (Auto) 1.0 x10^3/uL (0.3-0.8) H 05/06/18 05:13 Eos # (Auto) 0.3 x10^3/uL (0.0-0.2) H 05/06/18 05:13 Baso # (Auto) 0.1 X10^3/uL (0.0-0.1) 05/06/18 05:13 Absolute Nucleated RBC 0.0 /100WBC 05/06/18 05:13 Sample Site Rr 04/28/18 08:09 ABG pH 7.330 (7.35-7.45) L 04/28/18 08:09 ABG pCO2 29.0 mmHg (35.0-45.0) L 04/28/18 08:09 ABG pO2 92.0 mmHg (80.0-100.0) 04/28/18 08:09 ABG HCO3 15.3 mmol/L (22-26) L* 04/28/18 08:09 ABG O2 Saturation 97.0 % (90-100) 04/28/18 08:09 ABG Base Excess -9.3 mmol/L (-2.0-2.0) L 04/28/18 08:09 Yoshi Test P 04/28/18 08:09 A-a Gradient 21.0 mmHg 04/28/18 08:09 FiO2 21.0 04/28/18 08:09 Blood Gas Comments Son well-sd 04/28/18 08:09 Sodium 144 mmol/L (136-145) 05/06/18 05:13 Corrected Sodium 145 mmol/L (136-145) 05/06/18 05:13 Potassium 3.9 mmol/L (3.5-5.1) 05/06/18 05:13 Chloride 110 mmol/L (98-107) H 05/06/18 05:13 Carbon Dioxide 26.2 mmol/L (21-32) 05/06/18 05:13 BUN 15 mg/dL (7-18) 05/06/18 05:13 Creatinine 1.53 mg/dL (0.55-1.02) H 05/06/18 05:13 Est GFR (MDRD) Af Amer 44 (>60) L 05/06/18 05:13 Est GFR (MDRD) Non-Af 36 (>60) L 05/06/18 05:13 Glucose 140 mg/dL (65-99) H 05/06/18 05:13 POC Glucose (mg/dL) 133 mg/dL (65-99) H 05/06/18 11:11 Lactic Acid 0.5 mmol/L (0.4-2.0) 04/28/18 09:30 Calcium 8.1 mg/dL (8.5-10.1) L 05/06/18 05:13 Corrected Calcium 9.1 mg/dL (8.5-10.1) 05/06/18 05:13 Magnesium 1.6 mg/dL (1.7-2.9) L 05/04/18 05:15 Total Bilirubin 0.30 mg/dL (0.2-1.0) 05/06/18 05:13 AST 38 Units/L (15-37) H 05/06/18 05:13 ALT 24 Units/L (12-78) 05/06/18 05:13 Alkaline Phosphatase 114 Units/L (46-116) 05/06/18 05:13 Creatine Kinase 239 Units/L (26-192) H 05/01/18 09:43 CK-MB (CK-2) 1.6 ng/mL (0-4.0) 05/01/18 09:43 CK/CKMB % Calc 0.7 % (<4) 05/01/18 09:43 Troponin I 0.05 ng/mL (0-1.5) 05/01/18 09:43 Total Protein 7.0 g/dL (6.4-8.2) 05/06/18 05:13 Albumin 2.7 g/dL (3.4-5.0) L 05/06/18 05:13 Globulin 4.3 g/dL (2.5-4.5) 05/06/18 05:13 Albumin/Globulin Ratio 0.6 Ratio (1.1-2.1) L 05/06/18 05:13 Amylase 55 Units/L (25-115) 05/06/18 05:13 Lipase 440 Units/L (73-393) H 05/06/18 05:13 Specimen Type Catherized urine 04/26/18 17:39 Urine Color Yellow (YELLOW) 04/26/18 17:39 Urine Appearance Cloudy (CLEAR) 04/26/18 17:39 Urine pH 5.0 (5.0 - 8.0) 12/12/18 17:39 Ur Specific Sparks 1.015 (1.000-1.030) 04/26/18 17:39 Urine Protein 3+ (NEGATIVE) 04/26/18 17:39 Urine Glucose (UA) 1+ (NEGATIVE) 04/26/18 17:39 Urine Ketones Negative (NEGATIVE) 04/26/18 17:39 Urine Occult Blood 4+ (NEGATIVE) 04/26/18 17:39 Urine Nitrite Negative (NEGATIVE) 04/26/18 17:39 Urine Bilirubin Negative (NEGATIVE) 04/26/18 17:39 Urine Acetone Small (NEGATIVE) H 04/27/18 11:10 Urine Urobilinogen Normal (NORMAL) 04/26/18 17:39 Ur Leukocyte Esterase 3+ (NEGATIVE) 04/26/18 17:39 Urine RBC 10-20 /HPF (NONE SEEN) 04/26/18 17:39 Urine WBC Tntc /HPF (NONE SEEN) 04/26/18 17:39 Ur Squamous Epith Cells Many /HPF (NEGATIVE) 04/26/18 17:39 Amorphous Sediment 1+ /HPF (NEGATIVE) 04/26/18 17:39 Urine Bacteria 2+ /HPF (NEGATIVE) 04/26/18 17:39 Ur Culture Indicated? Yes/culture set up 04/26/18 17:39 Stool Description 90 grs brown soft 04/29/18 15:35 Stl Occult Blood (IFOB) Negative (NEGATIVE) 04/29/18 15:35 Stool for White Cells Negative (NEGATIVE) 04/29/18 15:35 Stl C. diff Tox B Gene Negative (NEGATIVE) 04/29/18 16:10 Stl C. diff [id number] Negative (NEGATIVE) 04/29/18 16:10 Theophylline < 2.0 ug/mL (10-20) L 05/04/18 05:15 Acetone, Semi-Quant Negative (NEGATIVE) 05/01/18 09:43 - Plan (1) Acute renal failure Status: Acute Plan: CONTINUOUS CARDIAC MONITORING. AM LABS, NAUSEA CONTROL, GENTLE PO HYDRATION. BLOOD AND URINE CULTURES COLLECTED ON ADMISSION. CT HEAD AND ABD W/O ON ADMISSION WITH NO ACUTE FINDINGS,CONTINUOUS BP MONITORING. IV HYDRATION, SUPPLEMENTAL O2. AZEVEDO CATH WITH STRICT I&OS. BLOOD SUGAR CONTROL (2) Hypokalemia Status: Acute Plan: 1/2NS 40KCL WITH REPEAT AM CMP, NPO (3) Hypotension Status: Resolved Plan: CONTINUOUS CARDIAC MONITORING AND REPEAT AM CXR. CBC CMP UA LACTIC ACID, ABG. BLOOD AND URINE CULTURES COLLECTED ON ADMISSION. REPEAT AM LABS LACTIC ACID, SERUM ACETONE, ABG THIS AM. CT HEAD AND ABD W/O ON ADMISSION WITH NO ACUTE FINDINGS,CONTINUOUS BP MONITORING. IV HYDRATION, SUPPLEMENTAL O2. AZEVEDO CATH WITH STRICT I&OS. BLOOD SUGAR CONTROL (4) Nausea & vomiting Status: Acute (5) Dehydration Status: Acute (6) Hypertension Status: Chronic (7) Diabetes Status: Chronic (8) COPD (chronic obstructive pulmonary disease) with acute bronchitis Status: Chronic (9) Anemia Status: Inactive (10) Acute pancreatitis Status: Acute Plan: PAIN CONTROL, IV HYDRATION. REPEAT AMYLASE AND LIPASE
[2018-05-06] MEDS: SNACK - Diabetic Appropriate PO SCH (20:05)
[2018-05-06] MEDS ORDERED: LEXAPRO ONE (21:13)
[2018-05-06] MEDS: LEXAPRO PO SCH (21:17)
[2018-05-06] MEDS: ATIVAN TAB 0.5 MG PO PRN (21:17)
[2018-05-06] MEDS: CRESTOR TAB 10 MG PO SCH (21:17)
[2018-05-06] MEDS: NORCO 10/325 TAB PO PRN (21:18)
[2018-05-06] MEDS: LOVENOX INJ 30 MG SYR SC SCH (21:19)
[2018-05-06] MEDS: EXEMESTANE 25 MG PO SCH (21:20)
[2018-05-07] MEDS ORDERED: MILK OF MAGNESIA PO PRN (00:41)
[2018-05-07] MEDS: NS 1000 ML 1,000 ML IV SCH ×2 (02:32→03:35)
[2018-05-07] MEDS: ZOFRAN INJ 4 MG VIAL IVP PRN ×4 (02:35→20:37)
[2018-05-07] MEDS: NORCO 10/325 TAB PO PRN ×2 (02:35→20:37)
[2018-05-07] MEDS: CEVIMELINE 30 MG PO SCH ×3 (05:49→21:03)
[2018-05-07] MEDS: HumuLIN R SUBCUT PRN ×2 (05:50→20:42)
[2018-05-07 06:05] LABS: BASOPHILS # (AUTO) 0.1 X10^3/uL (0.0-0.1); BASOPHILS % (AUTO) 0.8 % (0.2-1.0); EOSINOPHILS # (AUTO) 0.2 x10^3/uL (0.0-0.2); EOSINOPHILS % (AUTO) 1.8 % (0.9-2.9); HEMATOCRIT 28.1 % (36.0-47.0); HEMOGLOBIN 9.6 g/dL (12.0-16.0); LYMPHOCYTES # (AUTO) 2.7 X10^3/uL (1.3-2.9); LYMPHOCYTES % (AUTO) 24.6 % (21.0-51.0); MEAN CORPUSCULAR HEMOGLOBIN 29.3 pg (27.0-34.0); MEAN CORPUSCULAR HGB CONC 34.2 g/dL (33.0-35.0); MEAN CORPUSCULAR VOLUME 85.5 fL (80.0-100.0); MEAN PLATELET VOLUME 9.1 fL (7.4-11.0); MONOCYTES # (AUTO) 1.1 x10^3/uL (0.3-0.8); MONOCYTES % (AUTO) 9.9 % (0.0-13.0); NEUTROPHILS % (AUTO) 62.9 % (42.0-75.0); PLATELET COUNT 174 X10^3/uL (150.0-450.0); RED BLOOD COUNT 3.28 X10^6/uL (3.5-5.4); RED CELL DISTRIBUTION WIDTH 14.5 % (11.6-16.5); WHITE BLOOD COUNT 11.1 X10^3/uL (3.6-10.0)
[2018-05-07 06:08] LABS: ALBUMIN 2.6 g/dL (3.4-5.0); CALCIUM 8.1 mg/dL (8.5-10.1); CARBON DIOXIDE 25.1 mmol/L (21-32); COR CA(FOR HYPOALB) 9.2 mg/dL (8.5-10.1); CREATININE 1.57 mg/dL (0.55-1.02); TOTAL PROTEIN 6.7 g/dL (6.4-8.2)
[2018-05-07] MEDS: ROCEPHIN VIAL 1 GRAM IVP SCH (08:36)
[2018-05-07] MEDS: NORVASC TAB 5 MG PO SCH (08:36)
[2018-05-07] MEDS: PROTONIX INJ 40 MG VIAL IVP SCH ×2 (08:36→20:36)
[2018-05-07] MEDS ORDERED: NS 1/2 1000 ML IV 1,000 ML IV ONE ×2 (11:29→22:30)
[2018-05-07] MEDS ORDERED: CARAFATE PO SCH (11:30)
[2018-05-07] MEDS: NS 1/2 1000 ML IV 1,000 ML IV SCH ×2 (11:37→23:03)
[2018-05-07] MEDS ORDERED: REGLAN INJ 10 MG VIAL IVP ONE (12:33)
[2018-05-07] MEDS ORDERED: REGLAN INJ 10 MG VIAL ONE (14:46)
[2018-05-07] MEDS ORDERED: LEXAPRO ONE (20:29)
[2018-05-07] MEDS: SNACK - Diabetic Appropriate PO SCH (20:36)
[2018-05-07] MEDS: LEXAPRO PO SCH (20:37)
[2018-05-07] MEDS: ATIVAN TAB 0.5 MG PO PRN (20:37)
[2018-05-07] MEDS: COLACE CAP 100 MG PO SCH (20:37)
[2018-05-07] MEDS: CRESTOR TAB 10 MG PO SCH (20:37)
[2018-05-07] MEDS: EXEMESTANE 25 MG PO SCH (20:38)
[2018-05-07] MEDS: LOVENOX INJ 30 MG SYR SC SCH (20:41)
[2018-05-08] MEDS: NS 1/2 1000 ML IV 1,000 ML IV SCH ×2 (01:25→16:40)
[2018-05-08] MEDS: ZOFRAN INJ 4 MG VIAL IVP PRN ×4 (03:43→20:48)
[2018-05-08] MEDS: CEVIMELINE 30 MG PO SCH ×3 (05:04→21:00)
[2018-05-08 05:22] LABS: BASOPHILS # (AUTO) 0.1 X10^3/uL (0.0-0.1); BASOPHILS % (AUTO) 0.7 % (0.2-1.0); EOSINOPHILS # (AUTO) 0.3 x10^3/uL (0.0-0.2); EOSINOPHILS % (AUTO) 1.9 % (0.9-2.9); LYMPHOCYTES # (AUTO) 2.8 X10^3/uL (1.3-2.9); LYMPHOCYTES % (AUTO) 20.9 % (21.0-51.0); MEAN CORPUSCULAR HEMOGLOBIN 29.7 pg (27.0-34.0); MEAN CORPUSCULAR HGB CONC 34.6 g/dL (33.0-35.0); MEAN CORPUSCULAR VOLUME 85.8 fL (80.0-100.0); MEAN PLATELET VOLUME 8.9 fL (7.4-11.0); MONOCYTES # (AUTO) 1.1 x10^3/uL (0.3-0.8); MONOCYTES % (AUTO) 8.3 % (0.0-13.0); NEUTROPHILS # (AUTO) 9.2 x10^3/uL (2.2-4.8); NEUTROPHILS % (AUTO) 68.2 % (42.0-75.0); PLATELET COUNT 220 X10^3/uL (150.0-450.0); RED BLOOD COUNT 3.38 X10^6/uL (3.5-5.4); RED CELL DISTRIBUTION WIDTH 14.9 % (11.6-16.5); WHITE BLOOD COUNT 13.4 X10^3/uL (3.6-10.0)
[2018-05-08 05:40] LABS: CALCIUM 8.5 mg/dL (8.5-10.1); CARBON DIOXIDE 25.6 mmol/L (21-32); COR CA(FOR HYPOALB) 9.3 mg/dL (8.5-10.1); CREATININE 1.32 mg/dL (0.55-1.02); TOTAL PROTEIN 7.2 g/dL (6.4-8.2)
[2018-05-08] MEDS: NORCO 10/325 TAB PO PRN ×2 (13:54→20:48)
[2018-05-08] MEDS ORDERED: NS 1/2 1000 ML IV 1,000 ML IV ONE (16:27)
[2018-05-08] MEDS: NORVASC TAB 5 MG PO SCH (16:39)
[2018-05-08] MEDS: PROTONIX INJ 40 MG VIAL IVP SCH ×2 (16:39→20:48)
[2018-05-08] MEDS: ROCEPHIN VIAL 1 GRAM IVP SCH (16:40)
--- NOTE | 2018-05-08 17:28 | RAD ---
History: 6 hr follow-up for small bowel follow-through Exam: KUB Comparison: None Technique: A supine view the abdomen was obtained 6 hr after a small-bowel follow-through. Findings: There is minimal residual barium scattered in the distal small bowel . There are some mildly opacified loops of small bowel in the mid abdomen and right lower quadrant which appear normal caliber and contour. There is minimal contrast in the colon. IMPRESSION: Mild residual barium seen in the distal small bowel and colon. The visualized small bowel and colon appear normal caliber with no obvious ileus or small bowel obstruction identified. Reported By:
[2018-05-08] MEDS ORDERED: LEXAPRO ONE (20:40)
[2018-05-08] MEDS: CRESTOR TAB 10 MG PO SCH (20:48)
[2018-05-08] MEDS: SNACK - Diabetic Appropriate PO SCH (20:49)
[2018-05-08] MEDS: LEXAPRO PO SCH (20:49)
[2018-05-08] MEDS: EXEMESTANE 25 MG PO SCH (20:50)
[2018-05-08] MEDS: COLACE CAP 100 MG PO SCH (20:50)
[2018-05-08] MEDS: ATIVAN TAB 0.5 MG PO PRN (20:52)
[2018-05-08] MEDS: LOVENOX INJ 30 MG SYR SC SCH (20:56)
[2018-05-09] MEDS ORDERED: NS 1/2 1000 ML IV 1,000 ML IV ONE ×2 (03:56→16:20)
[2018-05-09] MEDS: ZOFRAN INJ 4 MG VIAL IVP PRN ×4 (03:57→20:05)
[2018-05-09] MEDS: NORCO 10/325 TAB PO PRN ×3 (03:57→20:12)
[2018-05-09] MEDS: NS 1/2 1000 ML IV 1,000 ML IV SCH ×2 (03:58→16:23)
[2018-05-09] MEDS: CEVIMELINE 30 MG PO SCH ×3 (06:00→21:07)
[2018-05-09 06:08] LABS: BASOPHILS # (AUTO) 0.1 X10^3/uL (0.0-0.1); BASOPHILS % (AUTO) 1.2 % (0.2-1.0); EOSINOPHILS # (AUTO) 0.2 x10^3/uL (0.0-0.2); HEMATOCRIT 26.8 % (36.0-47.0); HEMOGLOBIN 9.2 g/dL (12.0-16.0); LYMPHOCYTES # (AUTO) 2.5 X10^3/uL (1.3-2.9); LYMPHOCYTES % (AUTO) 21.5 % (21.0-51.0); MEAN CORPUSCULAR HEMOGLOBIN 29.2 pg (27.0-34.0); MEAN CORPUSCULAR HGB CONC 34.4 g/dL (33.0-35.0); MEAN CORPUSCULAR VOLUME 84.9 fL (80.0-100.0); MEAN PLATELET VOLUME 8.7 fL (7.4-11.0); MONOCYTES % (AUTO) 8.3 % (0.0-13.0); NEUTROPHILS # (AUTO) 7.7 x10^3/uL (2.2-4.8); PLATELET COUNT 225 X10^3/uL (150.0-450.0); RED BLOOD COUNT 3.16 X10^6/uL (3.5-5.4); RED CELL DISTRIBUTION WIDTH 14.8 % (11.6-16.5); WHITE BLOOD COUNT 11.5 X10^3/uL (3.6-10.0)
[2018-05-09 06:35] LABS: ALBUMIN 2.8 g/dL (3.4-5.0); CALCIUM 8.4 mg/dL (8.5-10.1); COR CA(FOR HYPOALB) 9.4 mg/dL (8.5-10.1); CREATININE 1.29 mg/dL (0.55-1.02); TOTAL PROTEIN 6.9 g/dL (6.4-8.2)
[2018-05-09] MEDS: PROTONIX INJ 40 MG VIAL IVP SCH ×2 (09:13→20:01)
[2018-05-09] MEDS: ROCEPHIN VIAL 1 GRAM IVP SCH (09:13)
[2018-05-09] MEDS: NORVASC TAB 5 MG PO SCH (09:13)
[2018-05-09 10:11] LABS: AMYLASE 62 Units/L (25-115); LIPASE 391 Units/L (73-393)
[2018-05-09] MEDS ORDERED: LEXAPRO ONE (19:48)
[2018-05-09] MEDS: SNACK - Diabetic Appropriate PO SCH (20:01)
[2018-05-09] MEDS: CRESTOR TAB 10 MG PO SCH (20:01)
[2018-05-09] MEDS: LEXAPRO PO SCH (20:02)
[2018-05-09] MEDS: COLACE CAP 100 MG PO SCH (20:02)
[2018-05-09] MEDS: LOVENOX INJ 30 MG SYR SC SCH (20:03)
[2018-05-09] MEDS: EXEMESTANE 25 MG PO SCH (20:03)
[2018-05-09] MEDS: ATIVAN TAB 0.5 MG PO PRN (20:15)
[2018-05-10] MEDS ORDERED: NS 1/2 1000 ML IV 1,000 ML IV ONE (05:17)
[2018-05-10] MEDS: NS 1/2 1000 ML IV 1,000 ML IV SCH (05:18)
[2018-05-10] MEDS: CEVIMELINE 30 MG PO SCH ×2 (05:18→14:13)
[2018-05-10 06:10] LABS: BASOPHILS # (AUTO) 0.1 X10^3/uL (0.0-0.1); BASOPHILS % (AUTO) 0.8 % (0.2-1.0); EOSINOPHILS # (AUTO) 0.2 x10^3/uL (0.0-0.2); HEMOGLOBIN 9.4 g/dL (12.0-16.0); LYMPHOCYTES # (AUTO) 2.1 X10^3/uL (1.3-2.9); LYMPHOCYTES % (AUTO) 19.1 % (21.0-51.0); MEAN CORPUSCULAR HEMOGLOBIN 29.5 pg (27.0-34.0); MEAN CORPUSCULAR VOLUME 84.4 fL (80.0-100.0); MEAN PLATELET VOLUME 8.3 fL (7.4-11.0); MONOCYTES # (AUTO) 0.8 x10^3/uL (0.3-0.8); MONOCYTES % (AUTO) 7.8 % (0.0-13.0); NEUTROPHILS # (AUTO) 7.6 x10^3/uL (2.2-4.8); NEUTROPHILS % (AUTO) 70.3 % (42.0-75.0); PLATELET COUNT 227 X10^3/uL (150.0-450.0); RED CELL DISTRIBUTION WIDTH 14.6 % (11.6-16.5); WHITE BLOOD COUNT 10.8 X10^3/uL (3.6-10.0)
[2018-05-10] MEDS: ZOFRAN INJ 4 MG VIAL IVP PRN ×2 (06:23→13:16)
[2018-05-10 06:25] LABS: ALBUMIN 2.9 g/dL (3.4-5.0); CALCIUM 8.7 mg/dL (8.5-10.1); CARBON DIOXIDE 23.9 mmol/L (21-32); COR CA(FOR HYPOALB) 9.6 mg/dL (8.5-10.1); CREATININE 1.26 mg/dL (0.55-1.02); TOTAL PROTEIN 7.1 g/dL (6.4-8.2)
[2018-05-10] MEDS: NORCO 10/325 TAB PO PRN (06:54)
[2018-05-10] MEDS: ROCEPHIN VIAL 1 GRAM IVP SCH (09:11)
[2018-05-10] MEDS: NORVASC TAB 5 MG PO SCH (09:11)
[2018-05-10] MEDS: PROTONIX INJ 40 MG VIAL IVP SCH (09:11)
[2018-05-10] MEDS ORDERED: MILK OF MAGNESIA PO ONE (10:27)
[2018-05-10] MEDS ORDERED: MILK OF MAGNESIA ONE (10:43)
[2018-05-10 14:11] VITALS: BP 139/62
[2018-05-10] MEDS ORDERED: MILK OF MAGNESIA PO SCH (21:00)
== END 2018-05-10 15:00 | disposition home or self-care (01) | DRG 314 ==
LOC: OBS → OBSVTOIN 13:10 → ICU 15:56
PROVIDERS: ADMIT Internal Medicine; ATTEND Internal Medicine
DX: J44.9 Chronic obstructive pulmonary disease, unspecified; R26.89 Other abnormalities of gait and mobility; E87.6 Hypokalemia; D64.89 Other specified anemias; N17.8 Other acute kidney failure; E86.0 Dehydration; R06.02 Shortness of breath; J20.8 Acute bronchitis due to other specified organisms; R53.1 Weakness; E87.2 Acidosis; I95.89 Other hypotension; R11.2 Nausea with vomiting, unspecified; Z23 Encounter for immunization; E11.65 Type 2 diabetes mellitus with hyperglycemia; K85.90 Acute pancreatitis without necrosis or infection, unspecified; Z79.4 Long term (current) use of insulin; Z85.3 Personal history of malignant neoplasm of breast; I10 Essential (primary) hypertension
CPT/HCPCS: 36415; 36600; 70450; 71010; 71045; 74000; 74018; 74022; 74176; 74241; 74250; 76770; 80048; 80053; 80198; 81001; 82009; 82150; 82270; 82550; 82553; 82803; 83605; 83630; 83690; 83735; 84132; 84484; 85025; 87040; 87045; 87086; 87427; 87449; 87493; 87899; 90686; 93005; 93010; 97110; 97116; 97162; 97166; 97530; 97535; 99231; A4216; A4222; C9113; J7030; S0028; 90670; J0360; J0696; J1642; J1650; J1815; J1956; J2270; J2405; J2550; J2765; J3243; J3475; J3480; J3490; J7040; J7050